=== PATIENT | male | born 1990 | race Caucasian/White ===

== ENCOUNTER 2018-09-20 15:56 | Emergency (ER) | payer BC ==
--- NOTE | 2018-09-20 16:21 | ED ---
General Adult HPI - General Chief complaint: Psychiatric Symptoms Stated complaint: Mental health Source: patient Mode of arrival: ambulatory Limitations: no limitations - History of Present Illness Initial comments: Dictation was produced using [email or web address] dictation software. please excuse any grammatical, word or spelling errors. Chief Complaint: 27-year-old male presents to the emergency department for chest discomfort and dysuria. History of Present Illness: Patient states that he doesn't have a primary care physician. He states that he's been having approximately one month of intermittent chest pain. States sharp and sometimes worse with deep inspiration. He states is not constant. Denies any cardiac history. Patient has no medical problems. Patient also states that he's been having pain with urination. Patient states that this is also intermittent. Having for approximately one month. Patient came today because he needed to come to the emergency department to get his medical issues figured out. Patient denies any constitutional symptoms. Patient is sexually active however does not know if he has a sexually transmitted disease. The ROS documented in this emergency department record has been reviewed and confirmed by me. Those systems with pertinent positive or negative responses have been documented in the HPI. All other systems are other negative and/or noncontributory. - Related Data Home Medications Medication Instructions Recorded Confirmed No Known Home Medications 09/20/18 09/20/18 Allergies Allergy/AdvReac Type Severity Reaction Status Date / Time No Known Allergies Allergy Unverified 09/20/18 16:33 Review of Systems ROS Statement: Those systems with pertinent positive or pertinent negative responses have been documented in the HPI. ROS Other: All systems not noted in ROS Statement are negative. Past Medical History Past Medical History: No Reported History History of Any Multi-Drug Resistant Organisms: None Reported Past Surgical History: Orthopedic Surgery Past Psychological History: No Psychological Hx Reported Smoking Status: Current every day smoker Past Alcohol Use History: Occasional Past Drug Use History: Marijuana General Exam - General Exam Comments Initial Comments: PHYSICAL EXAM: General Impression: Alert and oriented x3, not in acute distress HEENT: Normocephalic atraumatic, extra-ocular movements intact, pupils equal and reactive to light bilaterally, mucous membranes moist. Cardiovascular: Heart regular rate and rhythm, S1&S2 audible, no murmurs, rubs or gallops Chest: Lungs clear to auscultation bilaterally, no rhonchi, no wheeze, no rales Abdomen: Bowel sounds present, abdomen soft, non-tender, non-distended, no organomegaly Musculoskeletal: Pulses present and equal in all extremities, no peripheral edema Motor: Power 5/5 bilaterally, no focal deficits noted Neurological: CN II-XII grossly intact, no focal motor or sensory deficits noted Skin: Intact with no visualized rashes Psych: Normal affect and mood Limitations: no limitations Course Vital Signs 09/20/18 09/20/18 15:58 22:01 Temperature 98.1 F 97.6 F Pulse Rate 87 68 Respiratory 16 18 Rate Blood Pressure 187/105 138/76 O2 Sat by Pulse 100 98 Oximetry Medical Decision Making - Medical Decision Making ED course: 27-year-old male presents with chief complaint of dysuria and chest pain. Vital signs upon arrival are within acceptable limits. Patient has no symptoms at this time. Patient was value by triage nurse who allegedly reports that patient is here for depression. Patient states he is not depressed than usual. He denies any suicidal or homicidal ideation ideation. Patient is cooperative and mentating appropriately. Patient denies any visual or auditory hallucinations. More history was obtained from coworkers. They state that he currently works at a [employer] shop. They state that he has been acting abnormally. He's been very self-conscious and acting strangely. Sclera asked if he needed help and he said yes prompting them to bring him to the emergency department. Patient never overtly said he was suicidal however he did report to them that he needed.Chest x-ray was obtained showing no acute processes. Urinalysis shows no acute processes. Her drugs shows positive marijuana. She was evaluated by EPS. Recommend discharge at this time. Patient given referral to primary care physician. She advised to return with any worsening symptoms. Patient understandable agreeable to disposition. Urine sent for STD analysis. EKG interpretation: Ventricular rate 78, normal sinus rhythm,. Interval 1:30, care is 80, QTc 424. No FL prolongation, no QTC prolongation, no ST or T-wave changes noted. . Overall, this EKG is unremarkable - Lab Data Lab Results 09/20/18 09/20/18 Range/Units 16:20 18:50 Urine Color Yellow Urine Appearance Clear (Clear) Urine pH 7.5 (5.0-8.0) Ur Specific [place] 1.008 (1.001-1.035) Urine Protein Negative (Negative) Urine Glucose (UA) Negative (Negative) Urine Ketones Negative (Negative) Urine Blood Negative (Negative) Urine Nitrite Negative (Negative) Urine Bilirubin Negative (Negative) Urine Urobilinogen <2.0 (<2.0) mg/dL Ur Leukocyte Esterase Negative (Negative) Urine Opiates Screen Not Detected (NotDetected) Ur Oxycodone Screen Not Detected (NotDetected) Urine Methadone Screen Not Detected (NotDetected) Ur Propoxyphene Screen Not Detected (NotDetected) Ur Barbiturates Screen Not Detected (NotDetected) U Tricyclic Antidepress Not Detected (NotDetected) Ur Phencyclidine Scrn Not Detected (NotDetected) Ur Amphetamines Screen Not Detected (NotDetected) U Methamphetamines Scrn Not Detected (NotDetected) U Benzodiazepines Scrn Not Detected (NotDetected) Urine Cocaine Screen Not Detected (NotDetected) U Marijuana (THC) Screen Detected H (NotDetected) Disposition Clinical Impression: Depression Disposition: HOME SELF-CARE Condition: Good Is patient prescribed a controlled substance at d/c from ED?: No Referrals: None,Stated [Primary Care Provider] - 1-2 days Anahy Brown MD [REFERRING] - 1-2 days Time of Disposition: 22:11
[2018-09-20 16:35] LABS: Appearance,Urine Clear (Clear); Bilirubin,Urine Negative (Negative); Blood,Urine Negative (Negative); Color,Urine Yellow; Glucose,Urine (UA) Negative (Negative); Ketones,Urine Negative (Negative); Leukocyte Esterase,Urine Negative (Negative); Nitrite,Urine Negative (Negative); PH, Urine 7.5 (5.0-8.0); Protein,Urine Negative (Negative); Specific Gravity,Urine 1.008 (1.001-1.035); Urobilinogen,Urine <2.0 mg/dL (<2.0)
--- NOTE | 2018-09-20 17:13 | XR ---
EXAMINATION: XR chest 2V DATE AND TIME: 09/20/2018 4:53 PM CLINICAL INDICATION: PHH; Pain TECHNIQUE: Departmental protocol COMPARISON: None FINDINGS: The lungs are clear. The pleural spaces are negative. The cardiac silhouette is not enlarged. The remainder of the mediastinal silhouette is unremarkable. The skeletal structures and soft tissues are negative for acute findings. IMPRESSION: NO ACUTE PROCESS.
[2018-09-20 19:09] LABS: Amphetamine Screen,Urine Not Detected (NotDetected); Barbiturate Screen,Urine Not Detected (NotDetected); Benzodiazepines Screen,Urine Not Detected (NotDetected); Cocaine Screen,Urine Not Detected (NotDetected); Methadone Screen, Urine Not Detected (NotDetected); Opiate Screen,Urine Not Detected (NotDetected); Oxycodone Screen, Urine Not Detected (NotDetected); Phencyclidine Screen,Urine Not Detected (NotDetected); Tricyclic Antidepressant,Urine Not Detected (NotDetected); Urn Cannabinoid Scrn Detected (NotDetected)
[2018-09-20 22:02] VITALS: BP 138/76; PULSE 68; RESP 18; TEMP 97.6
[2018-09-22 16:11] LABS: C. trachomatis,PCR Negative (Neg,Equiv); Chlamydia trachomatis Source Urine; N. gonorrhoeae,PCR Negative (Neg,Equiv); Neisseria Source Urine
== END 2018-09-20 22:27 | disposition home or self-care (01) ==
LOC: EC 15:56
DX: F32.9 Major depressive disorder, single episode, unspecified (principal); R07.89 Other chest pain; R30.9 Painful micturition, unspecified; R30.0 Dysuria; F17.200 Nicotine dependence, unspecified, uncomplicated
CPT/HCPCS: 71046; 80306; 81003; 82075; 87491; 87591; 93005; 99285

== ENCOUNTER 2019-09-20 15:35 | Emergency (ER) | payer SELFPAY ==
[2019-09-20 15:48] VITALS: RESP 18; TEMP 98.5
[2019-09-20 16:39] LABS: Appearance,Urine Clear (Clear); Bilirubin,Urine Negative (Negative); Blood,Urine Negative (Negative); Color,Urine Light Yellow; Glucose,Urine (UA) Negative (Negative); Ketones,Urine Negative (Negative); Leukocyte Esterase,Urine Negative (Negative); Nitrite,Urine Negative (Negative); Protein,Urine Negative (Negative); Specific Gravity,Urine 1.004 (1.001-1.035); Urobilinogen,Urine <2.0 mg/dL (<2.0)
[2019-09-20 17:01] LABS: Amphetamine Screen,Urine Not Detected (NotDetected); Barbiturate Screen,Urine Not Detected (NotDetected); Benzodiazepines Screen,Urine Not Detected (NotDetected); Cocaine Screen,Urine Not Detected (NotDetected); Methadone Screen, Urine Not Detected (NotDetected); Opiate Screen,Urine Not Detected (NotDetected); Oxycodone Screen, Urine Not Detected (NotDetected); Phencyclidine Screen,Urine Not Detected (NotDetected); Tricyclic Antidepressant,Urine Not Detected (NotDetected); Urn Cannabinoid Scrn Detected (NotDetected)
--- NOTE | 2019-09-20 18:11 | ED ---
General Adult HPI - General Chief complaint: Anxiety Stated complaint: mental health eval Time Seen by Provider: 09/20/19 15:53 Source: patient Mode of arrival: ambulatory Limitations: no limitations - History of Present Illness Initial comments: Patient is a 28-year-old male presenting to the emergency Department with complaints of anxiety and abdominal pain. Patient describes the abdominal pain as been going on for approximately one year. He has been trying to figure out his symptoms and has been researching his symptoms however he cannot figure out what is causing it. Patient states he no longer has a job because people were talking about him behind his back. Patient denies any fever, chills, nausea, vomiting, diarrhea. Patient denies any abdominal surgeries. Patient denies any suicidal or homicidal thoughts at this time. Patient states he "just wants to figure out what's wrong with him." He does have history of mental illness. P adrien has no other complaints at this time. Upon arrival to ER, vital signs are stable. - Related Data Home Medications Medication Instructions Recorded Confirmed No Known Home Medications 09/20/18 09/20/18 Allergies Allergy/AdvReac Type Severity Reaction Status Date / Time No Known Allergies Allergy Unverified 09/20/18 16:33 Review of Systems ROS Statement: Those systems with pertinent positive or pertinent negative responses have been documented in the HPI. ROS Other: All systems not noted in ROS Statement are negative. Past Medical History Past Medical History: No Reported History History of Any Multi-Drug Resistant Organisms: None Reported Past Surgical History: Orthopedic Surgery Past Psychological History: No Psychological Hx Reported Smoking Status: Former smoker Past Alcohol Use History: Occasional Past Drug Use History: Marijuana General Exam - General Exam Comments Initial Comments: GENERAL: Patient appears anxious. HEAD: Atraumatic, normocephalic. EYES: Pupils equal round and reactive to light, extraocular movements intact, sclera anicteric, conjunctiva are normal. ENT: Nares patent, oropharynx clear without exudates. Moist mucous membranes. NECK: Normal range of motion, supple without lymphadenopathy or JVD. LUNGS: Breath sounds clear to auscultation bilaterally and equal. No wheezes rales or rhonchi. HEART: Regular rate and rhythm without murmurs, rubs or gallops. ABDOMEN: Soft, nontender, normoactive bowel sounds. No guarding, no rebound. No masses appreciated. : Deferred EXTREMITIES: Normal range of motion, no pitting or edema. No clubbing or cyanosis. NEUROLOGICAL: Normal speech, normal gait. PSYCH: Anxious SKIN: Warm, Dry, normal turgor, no rashes or lesions noted. Limitations: no limitations Course Vital Signs 09/20/19 09/20/19 15:42 18:13 Temperature 98.5 F Pulse Rate 126 H 90 Respiratory 18 18 Rate Blood Pressure 170/86 150/80 O2 Sat by Pulse 98 98 Oximetry Medical Decision Making - Medical Decision Making Patient is a 28-year-old male presenting for anxiety and abdominal pain. Vital signs are stable, afebrile. Exam is unremarkable except for patient being overly anxious. Patient denies any homicidal or suicidal thoughts at this time. UA is normal, tox screen only shows marijuana. BAT was normal. Patient was evaluated by EPS nurse, Prisca. Patient will follow up on an outpatient basis for generalized anxiety disorder. Patient is stable for discharge at this time. He agrees to a contract and will contact appropriate authorities if he has thoughts of self-harm. I discussed with patient that his abdominal discomfort is most likely related to his anxiety. Patient is in agreement with this. Patient was given referral for PCP as well. Patient is stable for discharge at this time. Case discussed with Dr. Vasques. - Lab Data Lab Results 09/20/19 Range/Units 16:15 Urine Color Light Yellow Urine Appearance Clear (Clear) Urine pH 6.0 (5.0-8.0) Ur Specific [place] 1.004 (1.001-1.035) Urine Protein Negative (Negative) Urine Glucose (UA) Negative (Negative) Urine Ketones Negative (Negative) Urine Blood Negative (Negative) Urine Nitrite Negative (Negative) Urine Bilirubin Negative (Negative) Urine Urobilinogen <2.0 (<2.0) mg/dL Ur Leukocyte Esterase Negative (Negative) Urine Opiates Screen Not Detected (NotDetected) Ur Oxycodone Screen Not Detected (NotDetected) Urine Methadone Screen Not Detected (NotDetected) Ur Propoxyphene Screen Not Detected (NotDetected) Ur Barbiturates Screen Not Detected (NotDetected) U Tricyclic Antidepress Not Detected (NotDetected) Ur Phencyclidine Scrn Not Detected (NotDetected) Ur Amphetamines Screen Not Detected (NotDetected) U Methamphetamines Scrn Not Detected (NotDetected) U Benzodiazepines Scrn Not Detected (NotDetected) Urine Cocaine Screen Not Detected (NotDetected) U Marijuana (THC) Screen Detected H (NotDetected) Disposition Clinical Impression: Acute anxiety Disposition: HOME SELF-CARE Condition: Stable Instructions (If sedation given, give patient instructions): Generalized Anxiety Disorder (ED) Additional Instructions: Please return to the Emergency Department if symptoms worsen or any other concerns. Follow up with outpatient services as discussed with Prisca. Follow-up with PCP regarding stomach pain. Is patient prescribed a controlled substance at d/c from ED?: No Referrals: None,Stated [Primary Care Provider] - 1-2 days Anahy Brown MD [REFERRING] - 1-2 days
[2019-09-20 18:16] VITALS: BP 150/80; PULSE 90
== END 2019-09-20 18:13 | disposition home or self-care (01) ==
LOC: EC 15:35
DX: F41.9 Anxiety disorder, unspecified (principal); R10.9 Unspecified abdominal pain; Z87.891 Personal history of nicotine dependence
CPT/HCPCS: 80306; 81003; 82075; 99284

== ENCOUNTER 2019-12-18 14:01 | Emergency (ER) | payer OTHER ==
[2019-12-18 14:07] VITALS: RESP 18; TEMP 98
[2019-12-18 14:40] LABS: Appearance,Urine Clear (Clear); Bilirubin,Urine Negative (Negative); Blood,Urine Negative (Negative); Color,Urine Colorless; Glucose,Urine (UA) Negative (Negative); Ketones,Urine Negative (Negative); Leukocyte Esterase,Urine Negative (Negative); Nitrite,Urine Negative (Negative); PH, Urine 6.5 (5.0-8.0); Protein,Urine Negative (Negative); Specific Gravity,Urine 1.003 (1.001-1.035); Urobilinogen,Urine <2.0 mg/dL (<2.0)
[2019-12-18 14:46] LABS: Amphetamine Screen,Urine Not Detected (NotDetected); Barbiturate Screen,Urine Not Detected (NotDetected); Benzodiazepines Screen,Urine Not Detected (NotDetected); Cocaine Screen,Urine Not Detected (NotDetected); Methadone Screen, Urine Not Detected (NotDetected); Opiate Screen,Urine Not Detected (NotDetected); Oxycodone Screen, Urine Not Detected (NotDetected); Phencyclidine Screen,Urine Not Detected (NotDetected); Tricyclic Antidepressant,Urine Not Detected (NotDetected); Urn Cannabinoid Scrn Not Detected (NotDetected)
--- NOTE | 2019-12-18 15:01 | ED ---
Psych HPI - General Source: patient Mode of arrival: ambulatory - History of Present Illness MD Complaint: feels depressed <RigoRomel - Last Filed: 12/18/19 17:43> <Atilio Vasques - Last Filed: 12/18/19 20:08> - General Chief Complaint: Psychiatric Symptoms Stated Complaint: mental health eval Time Seen by Provider: 12/18/19 14:33 - History of Present Illness Initial Comments: Is a 29-year-old male with a history depression and anxiety who presents with complaints of increasing anxiety and depression. He did talk to self not sleeping not eating very well going on for almost a month. No suicidal thoughts however. He does smoke marijuana but none for his last 3 days. He denies any drugs or alcohol. Earlier no medications for the above. (Romel Sierra) - Related Data Home Medications Medication Instructions Recorded Confirmed No Known Home Medications 09/20/18 09/20/18 Allergies Allergy/AdvReac Type Severity Reaction Status Date / Time No Known Allergies Allergy Verified 12/18/19 14:08 Review of Systems ROS Other: All systems not noted in ROS Statement are negative. <Romel Sierra - Last Filed: 12/18/19 17:43> ROS Other: All systems not noted in ROS Statement are negative. <Atilio Vasques - Last Filed: 12/18/19 20:08> ROS Statement: Those systems with pertinent positive or pertinent negative responses have been documented in the HPI. Past Medical History Past Medical History: No Reported History History of Any Multi-Drug Resistant Organisms: None Reported Past Surgical History: Orthopedic Surgery Additional Past Surgical History / Comment(s): right arm, Past Psychological History: Anxiety, Depression Smoking Status: Former smoker Past Alcohol Use History: Occasional Past Drug Use History: Marijuana <RigoRomel - Last Filed: 12/18/19 17:43> General Exam Limitations: no limitations General appearance: alert, in no apparent distress Head exam: Present: atraumatic, normocephalic, normal inspection Eye exam: Present: normal appearance, PERRL, EOMI. Absent: scleral icterus, conjunctival injection, periorbital swelling ENT exam: Present: normal exam, mucous membranes moist Neck exam: Present: normal inspection. Absent: tenderness, meningismus, lymphadenopathy Respiratory exam: Present: normal lung sounds bilaterally. Absent: respiratory distress, wheezes, rales, rhonchi, stridor Cardiovascular Exam: Present: regular rate, normal rhythm, normal heart sounds. Absent: systolic murmur, diastolic murmur, rubs, gallop, clicks GI/Abdominal exam: Present: soft, normal bowel sounds. Absent: distended, tenderness, guarding, rebound, rigid Extremities exam: Present: normal inspection, full ROM, normal capillary refill. Absent: tenderness, pedal edema, joint swelling, calf tenderness Back exam: Present: normal inspection Neurological exam: Present: alert, oriented X3, CN II-XII intact Psychiatric exam: Present: depressed, flat affect Skin exam: Present: warm, dry, intact, normal color. Absent: rash <Romel Sierra - Last Filed: 12/18/19 17:43> - General Exam Comments Initial Comments: Physical well-developed asthenic appearing male who is awake alert oriented 3 (Romel Sierra) Course <Romel Sierra - Last Filed: 12/18/19 17:43> <Atilio Vasques - Last Filed: 12/18/19 20:08> Vital Signs 12/18/19 12/18/19 14:01 19:43 Temperature 98.0 F Pulse Rate 84 75 Respiratory 18 18 Rate Blood Pressure 134/91 144/87 O2 Sat by Pulse 100 99 Oximetry - Reevaluation(s) Reevaluation #1: 12/18/19 17:43 The patient is pending EPS evaluation the case will be endorsed to Dr. Vasques at our shift change (Romel Sierra) Reevaluation #2: 12/18/19 20:07 Patient was made medically clear for psychiatric evaluation (Atilio Vasques) Medical Decision Making <Atilio Vasques - Last Filed: 12/18/19 20:08> - Medical Decision Making 29 male who was seen and evaluated by psychiatry here in the ER. At this point patient can be discharged home (Atilio Vasques) - Lab Data Lab Results 12/18/19 Range/Units 14:12 Urine Color Colorless Urine Appearance Clear (Clear) Urine pH 6.5 (5.0-8.0) Ur Specific [place] 1.003 (1.001-1.035) Urine Protein Negative (Negative) Urine Glucose (UA) Negative (Negative) Urine Ketones Negative (Negative) Urine Blood Negative (Negative) Urine Nitrite Negative (Negative) Urine Bilirubin Negative (Negative) Urine Urobilinogen <2.0 (<2.0) mg/dL Ur Leukocyte Esterase Negative (Negative) Urine Opiates Screen Not Detected (NotDetected) Ur Oxycodone Screen Not Detected (NotDetected) Urine Methadone Screen Not Detected (NotDetected) Ur Propoxyphene Screen Not Detected (NotDetected) Ur Barbiturates Screen Not Detected (NotDetected) U Tricyclic Antidepress Not Detected (NotDetected) Ur Phencyclidine Scrn Not Detected (NotDetected) Ur Amphetamines Screen Not Detected (NotDetected) U Methamphetamines Scrn Not Detected (NotDetected) U Benzodiazepines Scrn Not Detected (NotDetected) Urine Cocaine Screen Not Detected (NotDetected) U Marijuana (THC) Screen Not Detected (NotDetected) Disposition <Romel Sierra - Last Filed: 12/18/19 17:43> Is patient prescribed a controlled substance at d/c from ED?: No <Atilio Vasques - Last Filed: 12/18/19 20:08> Clinical Impression: Depression, Psychosis Disposition: HOME SELF-CARE Condition: Fair Instructions (If sedation given, give patient instructions): Brief Psychotic Disorder (ED) Referrals: None,Stated [Primary Care Provider] - 1-2 days
[2019-12-18 19:44] VITALS: BP 144/87; PULSE 75
== END 2019-12-18 20:16 | disposition home or self-care (01) ==
LOC: EC 14:01
DX: F32.9 Major depressive disorder, single episode, unspecified (principal); F29 Unspecified psychosis not due to a substance or known physiological condition; F12.90 Cannabis use, unspecified, uncomplicated; Z87.891 Personal history of nicotine dependence
CPT/HCPCS: 80306; 81003; 82075; 99284

== ENCOUNTER 2019-12-29 | Emergency (ER) | payer OTHER | END 2019-12-29 18:10 | disposition home or self-care (01) | CPT/HCPCS: 99283 ==

== ENCOUNTER 2020-01-24 18:32 | Emergency (ER) | payer OTHER ==
[2020-01-24 18:55] VITALS: RESP 16
--- NOTE | 2020-01-24 19:19 | ED ---
Psych HPI - General Chief Complaint: Psychiatric Symptoms Stated Complaint: mental health Time Seen by Provider: 01/24/20 18:59 Source: patient Mode of arrival: ambulatory - History of Present Illness Initial Comments: 29-year-old male patient presents to the emergency department today for evaluation of hallucinations both visual and auditory. Patient states that he has been having any symptoms for the last one month and 3 weeks. States that he visualizes different colored lights that are speaking to him. Patient states that he is fearful of this voice due to its threats to harm him and his family members. Patient denies any suicidal or homicidal ideation. Patient was admitted to this facility at the end of December for similar symptoms. States while he was in the hallucinations did decrease but returned once he got home. States he is sleeping better since being put on Seroquel. He denies any current physical symptoms or concerns. States he is taking his medications as directed. Denies alcohol or drug use. Patient denies any recent rash, fever, chills, cough, shortness of breath, chest pain, abdominal pain, nausea, vomiting, diarrhea, constipation, back pain, numbness, tingling, dizziness, weakness, hematuria, dysuria, urinary urgency, urinary frequency, headache, visual changes, or any other complaints. - Related Data Previous Rx's Medication Instructions Recorded Nicotine 7Mg/24Hr Patch [Habitrol] 1 patch TRANSDERM DAILY 14 Days 01/13/20 patch QUEtiapine [SEROquel] 25 mg PO HS 30 Days tab 01/13/20 Venlafaxine HCl ER [Effexor Xr] 37.5 mg PO DAILY #10 cap 01/24/20 Allergies Allergy/AdvReac Type Severity Reaction Status Date / Time No Known Allergies Allergy Verified 01/24/20 19:32 Review of Systems ROS Statement: Those systems with pertinent positive or pertinent negative responses have been documented in the HPI. ROS Other: All systems not noted in ROS Statement are negative. Past Medical History Past Medical History: No Reported History History of Any Multi-Drug Resistant Organisms: None Reported Past Surgical History: Orthopedic Surgery Additional Past Surgical History / Comment(s): right arm, Past Psychological History: ADD/ADHD, Anxiety, Depression Smoking Status: Current every day smoker Past Alcohol Use History: None Reported Past Drug Use History: Marijuana General Exam Limitations: no limitations General appearance: alert, in no apparent distress, other (Physical well- developed, well-nourished adult male patient in no acute distress. Vital signs upon presentation are temperature 98.6F, pulse 92, respiration 16, blood pressure 145/85, pulse ox 99% on room air.) Eye exam: Present: normal appearance, PERRL, EOMI. Absent: scleral icterus, conjunctival injection, periorbital swelling ENT exam: Present: normal exam, normal oropharynx, mucous membranes moist Respiratory exam: Present: normal lung sounds bilaterally. Absent: respiratory distress, wheezes, rales, rhonchi, stridor Cardiovascular Exam: Present: regular rate, normal rhythm, normal heart sounds. Absent: systolic murmur, diastolic murmur, rubs, gallop, clicks Neurological exam: Present: alert, oriented X3, CN II-XII intact Psychiatric exam: Present: flat affect. Absent: homicidal ideation, suicidal ideation Skin exam: Present: warm, dry, intact, normal color. Absent: rash Course Vital Signs 01/24/20 01/24/20 18:53 21:15 Temperature 98.6 F 98 F Pulse Rate 92 79 Respiratory 16 16 Rate Blood Pressure 145/85 135/80 O2 Sat by Pulse 99 98 Oximetry Medical Decision Making - Medical Decision Making 29-year-old male patient presented to the emergency department today for evaluation of hallucinations. Physical examination is unremarkable. He was cleared for emergency psychiatric services and had an evaluation. Patient is not suicidal nor homicidal site is felt that he would be safe to be discharged home. Psychiatrist requests giving patient a prescription for venlafaxine 37.5mg daily. He'll be given a 10 day prescription and instructed to follow-up with his primary care physician for recheck on Monday. Return parameters were discussed in detail. He verbalizes understanding and agrees with this plan. - Lab Data Lab Results 01/24/20 Range/Units 19:26 Urine Opiates Screen Not Detected (NotDetected) Ur Oxycodone Screen Not Detected (NotDetected) Urine Methadone Screen Not Detected (NotDetected) Ur Propoxyphene Screen Not Detected (NotDetected) Ur Barbiturates Screen Not Detected (NotDetected) U Tricyclic Antidepress Not Detected (NotDetected) Ur Phencyclidine Scrn Not Detected (NotDetected) Ur Amphetamines Screen Not Detected (NotDetected) U Methamphetamines Scrn Not Detected (NotDetected) U Benzodiazepines Scrn Not Detected (NotDetected) Urine Cocaine Screen Not Detected (NotDetected) U Marijuana (THC) Screen Not Detected (NotDetected) Disposition Clinical Impression: Hallucinations Disposition: HOME SELF-CARE Condition: Good Instructions (If sedation given, give patient instructions): Hallucinations (ED) Additional Instructions: Take medications as directed. Return immediately if you start to feel suicidal or are having thoughts of harming others. Follow-up with her primary care physician for recheck on Monday. Return to the emergency department immediately for any new, worsening, or concerning symptoms. Prescriptions: Venlafaxine HCl ER [Effexor Xr] 37.5 mg PO DAILY #10 cap Is patient prescribed a controlled substance at d/c from ED?: No Referrals: Moris Schumacher MD [Primary Care Provider] - 1-2 days Time of Disposition: 21:19
[2020-01-24 20:02] LABS: Amphetamine Screen,Urine Not Detected (NotDetected); Barbiturate Screen,Urine Not Detected (NotDetected); Benzodiazepines Screen,Urine Not Detected (NotDetected); Cocaine Screen,Urine Not Detected (NotDetected); Methadone Screen, Urine Not Detected (NotDetected); Opiate Screen,Urine Not Detected (NotDetected); Oxycodone Screen, Urine Not Detected (NotDetected); Phencyclidine Screen,Urine Not Detected (NotDetected); Tricyclic Antidepressant,Urine Not Detected (NotDetected); Urn Cannabinoid Scrn Not Detected (NotDetected)
[2020-01-24 21:28] VITALS: BP 135/80; PULSE 79; TEMP 98
== END 2020-01-24 21:33 | disposition home or self-care (01) ==
LOC: EC 18:32
DX: R44.1 Visual hallucinations (principal); R44.0 Auditory hallucinations; F17.200 Nicotine dependence, unspecified, uncomplicated
CPT/HCPCS: 80306; 82075; 99285

== ENCOUNTER 2020-01-28 18:09 | Inpatient (IN) | payer MEDICAID, OTHER ==
--- NOTE | 2020-01-28 18:47 | ED ---
General Adult HPI - General Chief complaint: Psychiatric Symptoms Stated complaint: EPS eval Time Seen by Provider: 01/28/20 18:30 Source: patient, RN notes reviewed, old records reviewed Mode of arrival: ambulatory Limitations: no limitations - History of Present Illness Initial comments: 29-year-old male history of mental illness presenting for psychiatric evaluation. Patient currently on Seroquel. He states he has been hearing voices for the past one week. They are telling him to hurt himself and hurt his family and low speed around him. He denies any suicide attempt or self-harm. He denies any ingestion of illicit drugs or alcohol. He states he has been admitted to this institution for mental health in the past. He is asking to speak with someone. He had called his counselor who referred him to the emergency department for evaluation. - Related Data Home Medications Medication Instructions Recorded Confirmed Nicotine 7Mg/24Hr Patch [Habitrol] 1 patch TRANSDERM DAILY PRN 01/28/20 01/28/20 Previous Rx's Medication Instructions Recorded QUEtiapine [SEROquel] 25 mg PO HS 30 Days tab 01/13/20 Venlafaxine HCl ER [Effexor Xr] 37.5 mg PO DAILY #10 cap 01/24/20 Allergies Allergy/AdvReac Type Severity Reaction Status Date / Time No Known Allergies Allergy Verified 01/28/20 20:51 Review of Systems ROS Statement: Those systems with pertinent positive or pertinent negative responses have been documented in the HPI. ROS Other: All systems not noted in ROS Statement are negative. Past Medical History Past Medical History: No Reported History History of Any Multi-Drug Resistant Organisms: None Reported Past Surgical History: Orthopedic Surgery Additional Past Surgical History / Comment(s): right arm, Past Psychological History: ADD/ADHD, Anxiety, Depression Smoking Status: Current every day smoker Past Alcohol Use History: None Reported Past Drug Use History: Marijuana General Exam Limitations: no limitations General appearance: alert, in no apparent distress Head exam: Present: atraumatic, normocephalic Eye exam: Present: normal appearance, PERRL ENT exam: Present: normal exam Neck exam: Present: normal inspection. Absent: tenderness Respiratory exam: Present: normal lung sounds bilaterally. Absent: respiratory distress, wheezes Cardiovascular Exam: Present: regular rate, normal rhythm GI/Abdominal exam: Present: soft. Absent: distended, tenderness, guarding Extremities exam: Present: normal inspection, normal capillary refill. Absent: pedal edema Back exam: Present: normal inspection Neurological exam: Present: alert, oriented X3, CN II-XII intact. Absent: motor sensory deficit Psychiatric exam: Present: normal affect, normal mood Skin exam: Present: warm, dry, intact. Absent: cyanosis, diaphoretic Course Vital Signs 01/28/20 01/28/20 18:23 20:31 Temperature 98.8 F Pulse Rate 107 H 79 Respiratory 20 20 Rate Blood Pressure 142/87 132/86 O2 Sat by Pulse 99 96 Oximetry Medical Decision Making - Medical Decision Making 29-year-old male presenting for psychiatric evaluation. Hearing voices. Patient medically cleared and evaluated by EPS. He will be admitted to this institution for further psychiatric evaluation and treatment. Patient is agreeable with plan. Disposition Clinical Impression: Hallucinations, Major depressive disorder with psychotic features Disposition: ADMITTED IP TO THIS [facility] Condition: Stable Is patient prescribed a controlled substance at d/c from ED?: No Referrals: Moris Schumacher MD [Primary Care Provider] - 1-2 days Time of Disposition: 22:14
[2020-01-28] MEDS ORDERED: LORazepam 1 MG TAB PO PRN (22:46)
[2020-01-28] MEDS ORDERED: LORazepam 2 MG/ML INJ IM PRN (22:49)
[2020-01-28] MEDS ORDERED: ZIPRASIDONE 20 MG VIAL IM PRN (23:30)
[2020-01-28] MEDS ORDERED: QUEtiapine 25 MG TAB PO SCH (23:30)
[2020-01-29] MEDS ORDERED: MAGNESIUM HYDROXIDE 2,400 MG/10 ML CUP PO PRN
[2020-01-29] MEDS ORDERED: MAG HYDROX/AL HYDROX/SIMETH 30 ML CUP PO PRN
[2020-01-29] MEDS: NICOTINE 7MG/24HR PATCH TRANSDERM SCH ×3 (09:07→18:41)
--- NOTE | 2020-01-29 11:48 | P.HP ---
Psychiatric H&P - . H&P Date: 01/29/20 History & Physical: DATE OF SERVICE: 01/29/2020 IDENTIFYING DATA: The patient is a single 29-year-old male admitted to the psychiatric unit voluntarily with the complaint of auditory hallucinations and suicidal and homicidal ideation. HISTORY OF PRESENT ILLNESS: The patient is a 29-year-old male patient who presented to the emergency department for evaluation of hallucinations both visual and auditory. Patient stated that he visualizes different colored lights that are speaking to him. Patient stated that he is fearful of this voice due to its threats to harm him and his family members. Patient denies any suicidal or homicidal ideation. Patient was admitted to this facility at the end of December for similar symptoms. States while he was in the hallucinations did decrease but returned once he got home. States he is sleeping better since being put on Seroquel. He denies any current physical symptoms or concerns. States he is taking his medications as directed. He described the non-auditory experience where he has recurrent and intrusive thoughts that he does not identify as his own. He has given the source of the thoughts a name and described the person as cruel and manipulative. The thoughts are condemning, critical and attempted to control his behavior. As described in the letter above, the thoughts are sometimes homicidal or suicidal nature. During interview he became acutely distressed as she was describing his experience. He pleaded that I understand he would never act on these disturbing and violent thoughts. However, he feels helpless in his ability to control her stopped thoughts. He specifically denied auditory experiences and denied experiencing visual or olfactory hallucinations. He denied ideas of reference or thought broadcasting. This experience began about one month prior to admission. The onset of these symptoms coincide with the during the breakup and separation from a long-term partner. He talked about conflict with his partner after he was discharge from hospital for the treatment of diabetes. He feels depressed, hopeless and helpless. He has suicidal and homicidal thoughts that appear to be expressed in the disassociated manner. He described problems with sleep appetite, guilt and energy. He described restlessness and anxiety related to the subjective experiences. He stop smoking marijuana 1 month ago with the onset of these psychotic experie nces. He denied use of alcohol or other drugs get high, help him sleep or changes mood. He denied experiencing panic attacks or compulsive behaviors. He denied experiencing. Of elevated mood or sustained irritability consistent with diamond or hypomania. PAST PSYCHIATRIC HISTORY: PAST PSYCHIATRIC HISTORY: He initially denied history of mental health treatment but later revealed that he was involved with therapy and prescribed Adderall for several years beginning in early adolescence until the time he left home at 19. According to [facility] mental health records he was diagnosed with ADHD and conduct disorder as an adolescent. Past hospitalizations: He has history of 1 previous psychiatric hospitalization at this hospital about 3 weeks ago with similar symptoms. Suicidal attempts: Denies Medications: Seroquel PAST MEDICAL HISTORY: He has no major medical illnesses ALLERGIES: No drug ALLERGIES SUBSTANCE USE HISTORY: He described a history of daily use of marijuana up until one month ago and a social pattern of alcohol use. He denied that friends and family ever complained to him about his marijuana alcohol use. He is never been in a substance abuse treatment program. He reports last used Marijuana a week ago. FAMILY PSYCHIATRIC/SUBSTANCE USE HISTORY: he is unaware of family history of psychiatric or substance use problems LEGAL HISTORY: denied SOCIAL HISTORY: His born and raised in [facility]. His parents were never . He lived primarily with his mother. He has 1 brother and 2 sisters. He currently lives with his brother is an apartment in [place]. He broke up with his partner of 10 years approximate 2 months ago but has been getting back together. He graduated from high school and briefly attended [employer] college. He is currently unemployed. He complained of being bullied as a child but denied a history of physical, sexual or emotional abuse. He is homosexual. MENTAL STATUS EXAM: General Appearance: Patient appears to be stated age is alert, directable. Patient has fair eye contact. Behavior: Patient is seated without any agitated behavior. Appears to be anxious Speech: Patient's speech is goal-directed and nonpressured. Slow and soft tone. Mood/Affect: Patient reports their mood/anxiety is depressed, affect is constricted. Suicidality/Homicidality: Patient denies any suicidal or homicidal ideation. Perceptions: Patient reports auditory and visual hallucinations. Though content/process: Paranoia Memory and concentration: AOX3, grossly intact for the purposes of this session. Judgment and insight: Limited Expected LOS: 3-5 days Allergies Allergy/AdvReac Type Severity Reaction Status Date / Time No Known Allergies Allergy Verified 01/29/20 09:23 Vital Signs Temp 98.5 F 04/15/20 06:43 Pulse 79 01/29/20 06:43 Resp 16 01/29/20 06:43 BP 117/64 01/29/20 06:43 Pulse Ox 99 01/28/20 23:15 Intake & Output 01/28/20 01/29/20 01/29/20 18:59 06:59 18:59 Weight 72.484 kg 70.307 kg 01/29/20 11:28 Assessment and Plan Assessment: IMPRESSIONS: Major depressive disorder with psychotic features, rule out delusional disorder, rule out schizophreniform disorder, rule out schizoaffective disorder, rule out unspecified psychotic disorder, rule out obsessive-compulsive disorder. Plan: PLAN: Admit to the mental health unit. Placed on suicidal precautions and 15 minute checks for safety. Continue inpatient level of care due to need for further stabilization on medications Consults internal medicine team for history and physical and management of medical problems. Provide the patient individual, group therapy, substance use disorder counseling to give better insight and learn coping skills. Medications: Start Seroquel 50 mg PO qhs. Adjust medications and monitor closely for the patient's symptoms getting worse and /or possible side effects on medications. Discharge patient to OUTPATIENT services upon a stabilization
[2020-01-29] MEDS: QUEtiapine 50 MG TAB PO SCH (21:36)
[2020-01-30] MEDS ORDERED: ZIPRASIDONE 20 MG VIAL IM ONE ×2 (09:07→09:14)
[2020-01-30] MEDS: NICOTINE 7MG/24HR PATCH TRANSDERM SCH (10:27)
--- NOTE | 2020-01-30 12:48 | P.PN ---
Subjective Progress Note Date: 01/30/20 Subjective: Patient seen and chart reviewed. The case was discussed with the team. The patient continues to report feeling depressed and anxious. The patient complained of poor sleep last night. He reports compliance with the medications and refused to the medications to be adjusted anymore. The patient refused to sign the consent for the psychotropic medications. The patient was agreeable to continue on the current dose of Seroquel. The patient reports being withdrawn and isolated on the unit and has not been attending or participating in milieu therapy. The patient reports fair and appetite. The patient reports auditory hallucinations telling him that he is going to . The patient denies any active suicidal homicidal or paranoid ideations at the time of the interview. Objective - Vital Signs Vital signs: Vital Signs Temp 98.0 F 01/30/20 06:34 Pulse 66 01/30/20 06:34 Resp 16 01/30/20 06:34 BP 114/56 01/30/20 06:34 Pulse Ox 98 01/30/20 06:34 - Exam Mental Status Examination: General Appearance: Patient appears to be stated age is alert, directable. Improving hygiene and grooming. Behavior: Patient is calmly sitting on the chair without any agitated behavior but has been irritable. Speech: Patient's speech is fluent and nonpressured. Mood/Affect: Patient reports their mood is depressed and anxious,affect is congruent with improved range. Suicidality/Homicidality: Patient denies having any suicidal or homicidal ideation intent or plan. Perceptions: Patient reports auditory hallucinations. Though content/process: Vague paranoia. Memory and concentration: AOX3, grossly intact for the purposes of this session Judgment and insight: poor A Assessment and Plan Assessment: IMPRESSIONS: Major depressive disorder with psychotic features, rule out delusional disorder, rule out schizophreniform disorder, rule out schizoaffective disorder, rule out unspecified psychotic disorder, rule out obsessive-compulsive disorder. Plan: PLAN: 1:1 support and psychotherapy Placed on suicidal precautions and 15 minute checks for safety. Continue inpatient level of care due to need for further stabilization on medications Provide the patient individual, group therapy, substance use disorder counseling to give better insight and learn coping skills. Medications: Discussed increase Seroquel 100 mg PO qhs, the patient is refusing any changes in the medication and refused to sign the consent. Adjust medications and monitor closely for the patient's symptoms getting worse and /or possible side effects on medications. Discharge patient to OUTPATIENT services upon a stabilization
--- NOTE | 2020-01-30 20:41 | CONS ---
CONSULTATION CHIEF COMPLAINT: Acute psychosis. HISTORY OF PRESENT ILLNESS: This is another admission to the psych unit for this 29-year-old white male with a history of schizophrenia. He presented to the emergency room for psychiatric evaluation. He describes hearing voices. He has a psychiatric history. He denies being suicidal or homicidal. REVIEW OF SYSTEMS: He denies any other symptoms of such as headaches, neurologic problems, chest pain, shortness of breath, abdominal pain, etc. Past medical history, family history, and personal and social histories can be found in his admitting summary. He apparently receives outpatient psychiatric therapy. He has not been taking any medications of any type, including psychoactive medications. He does smoke. PHYSICAL EXAMINATION: Blood pressure is 138/85 with a pulse of 87, respirations of 16. He is afebrile. In general he appeared to be slender and somewhat agitated. He was not in any acute distress. Skin color was normal. Skin was warm and dry. Lymph nodes were not enlarged. Head, ears, eyes, nose, mouth and throat seemed to be normal. Neck veins were not distended. Thyroid was normal. Chest was clear. Cardiac exam was normal sinus rhythm and no murmurs. Abdomen was soft. Extremities were normal. Neurologically he was intact. IMPRESSION: 1. Acute psychosis. 2. Schizophrenia. RECOMMENDATIONS: None. He does not appear to have any significant medical issues at this time. MMODL / IJN: [id number] /
[2020-01-30] MEDS: QUEtiapine 50 MG TAB PO SCH (21:28)
[2020-01-31] MEDS: NICOTINE 7MG/24HR PATCH TRANSDERM SCH ×2 (09:01→13:00)
[2020-01-31 09:05] LABS: Basophils % (A) 0 %; Eosinophils # (A) 0.3 k/uL (0-0.7); Eosinophils % (A) 4 %; HCT 46.8 % (39.0-53.0); HGB 15.3 gm/dL (13.0-17.5); Lymphocytes % (A) 25 %; MCH 31.9 pg (25.0-35.0); MCHC 32.7 g/dL (31.0-37.0); MCV 97.6 fL (80.0-100.0); Mean Platelet Volume 7.7; Monocytes # (A) 0.5 k/uL (0-1.0); Monocytes % (A) 6 %; Neutrophils # (A) 4.9 k/uL (1.3-7.7); Neutrophils % (A) 62 %; Platelet Count 203 k/uL (150-450); RBC 4.79 m/uL (4.30-5.90); RDW 12.4 % (11.5-15.5); WBC 7.8 k/uL (3.8-10.6)
[2020-01-31 09:16] LABS: ALT 24 U/L (4-49); AST 20 U/L (17-59); African American GFR (CKD) >90 (>60 ml/min/1.73 sqM); Albumin 4.3 g/dL (3.5-5.0); Alkaline Phosphatase 34 U/L (38-126); Anion Gap 7 mmol/L; Blood Urea Nitrogen 17 mg/dL (9-20); Carbon Dioxide 29 mmol/L (22-30); Chloride 102 mmol/L (98-107); Cholesterol 148 mg/dL (<200); Glucose 89 mg/dL (74-99); HDL Cholesterol 43 mg/dL (40-60); LDL Cholesterol,Calculated 88 mg/dL (0-99); Non-African American GFR(CKD) >90 (>60 ml/min/1.73 sqM); Potassium 4.6 mmol/L (3.5-5.1); Sodium 138 mmol/L (137-145); Total Bilirubin 0.8 mg/dL (0.2-1.3); Total Protein 6.9 g/dL (6.3-8.2); Triglycerides 86 mg/dL (<150)
--- NOTE | 2020-01-31 11:54 | P.PN ---
Subjective Progress Note Date: 01/31/20 Subjective: Patient seen and chart reviewed. The case was discussed with the team. The patient reports feeling better and reports improved mood and functioning. The patient reports improved sleep last night. He reports compliance with the medications but refuses for the medications to be adjusted anymore. The patient signed the consent for the psychotropic medications. The patient was agreeable to continue on the current dose of Seroquel. The patient reports being withdrawn and isolated on the unit and has not been attending or participating in milieu therapy. The patient reports fair and appetite. The patient reports auditory hallucinations telling him that he is going to . The patient denies any active suicidal homicidal or paranoid ideations at the time of the interview. Objective - Vital Signs Vital signs: Vital Signs Temp 98.4 F 01/31/20 06:13 Pulse 74 01/31/20 06:13 Resp 14 01/31/20 06:13 BP 97/56 01/31/20 06:13 Pulse Ox 98 01/30/20 06:34 - Exam Mental Status Examination: General Appearance: Patient appears to be stated age is alert, directable. Improving hygiene and grooming. Behavior: Patient is calmly sitting on the chair without any agitated behavior. Speech: Patient's speech is fluent and nonpressured. Mood/Affect: Patient reports their mood is depressed and anxious,affect is congruent with improved range. Suicidality/Homicidality: Patient denies having any suicidal or homicidal ideation intent or plan. Perceptions: Patient reports auditory and visual hallucinations. Though content/process: Vague paranoia. Memory and concentration: AOX3, grossly intact for the purposes of this session Judgment and insight: poor A - Labs CBC & Chem 7: 01/31/20 08:12 01/31/20 08:12 Labs: Abnormal Lab Results - Last 24 Hours (Table) 01/31/20 Range/Units 08:12 Alkaline Phosphatase 34 L (38-126) U/L Assessment and Plan Assessment: IMPRESSIONS: Major depressive disorder with psychotic features, rule out delusional disorder, rule out schizophreniform disorder, rule out schizoaffective disorder, rule out unspecified psychotic disorder, rule out obsessive-compulsive disorder. Plan: PLAN: 1:1 support and psychotherapy Placed on suicidal precautions and 15 minute checks for safety. Continue inpatient level of care due to need for further stabilization on medications Provide the patient individual, group therapy, substance use disorder counseling to give better insight and learn coping skills. Medications: Discussed increase Seroquel 100 mg PO qhs, the patient is refusing any changes in the medication and refused to sign the consent. Continue Seroquel 50 mg PO qhs. Adjust medications and monitor closely for the patient's symptoms getting worse and /or possible side effects on medications. Discharge patient to OUTPATIENT services upon a stabilization
[2020-01-31] MEDS ORDERED: NICOTINE POLACRILEX 2 MG GUM BUCCAL PRN (12:23)
[2020-01-31] MEDS: QUEtiapine 50 MG TAB PO SCH (20:48)
[2020-01-31 21:56] LABS: Hemoglobin A1C 4.7 % (4.0-6.0)
[2020-02-01] MEDS: ACETAMINOPHEN TAB 325 MG TAB PO PRN (03:07)
[2020-02-01 06:24] VITALS: RESP 16
[2020-02-01] MEDS: NICOTINE 7MG/24HR PATCH TRANSDERM SCH (07:47)
--- NOTE | 2020-02-01 18:17 | PN ---
PROGRESS NOTE DATE OF SERVICE: 02/01/2020. CHIEF COMPLAINT: The patient had auditory and visual hallucinations talking about seeing different lights that are speaking to him. He is fearful because the voices threaten him and his family. He has had ongoing problems with depression. INTERVAL HISTORY: Patient has been doing fair. He had a quiet evening yesterday. He attends more groups than not. He comes out in the day area. He has been appropriate in his interactions. He slept fairly well last night. Today, he has been up again. He has attended most of the groups. When I reviewed his history, the patient seemed to indicate that over the last 2 months or more he has had depression problems that seem to precede his hallucinations. He says going back to [place] time, he was not identifying depression and that most things seem to begin to start for him in October. He was somewhat vague about precipitants of depression. He acknowledged that he was sleeping poorly, had loss of motivation, energy and interest. There were some ongoing issues with his partner. Apparently the two subsequently have parted ways. He has not been working in and acknowledges that he has not had much in his life to focus on as something as a positive for him. When we talked about treatment of depression with psychotic features, I discussed the role of antidepressant, so the patient was pretty clear about the idea he did not want to be on antidepressant. He really could not say why. He was continuing to report seeing various colored dots that appear around him. He says generally they seem to be there all of the time, though they are less intrusive some of the time than other times. He says overall he feels he is making a little progress. He gave conflicting information about how he felt his overall progress has been in the hospital. At 1 point he said that he was doing well and made good progress and other times he said that he did not feel he was getting any benefit particularly from his medications. We discussed that his antipsychotic medication is likely subtherapeutic. He was willing to consider increasing the dose. He tolerates his psychotropic medications. MENTAL STATUS: Patient gave fair eye contact. He was somewhat restless. He answered questions appropriately. His thoughts were clear and coherent at times. He gave some rambling responses that were a little vague and difficult to track his conversation. For the most part, his thoughts were fairly clear. His affect was somewhat anxious. His mood dysphoric. He seemed somewhat distressed. He continues to report visual hallucinations. Cognition was clear. ASSESSMENT: I will continue the current diagnosis and treatment plan. I had an extensive discussion with the patient regarding the likely diagnosis and treatment based on what the patient has presented. I discussed that it would be reasonable to consider the diagnosis of major depression with psychotic features. I discussed the importance of antidepressant therapy though early on without antipsychotics. Patient is likely to have poor response rate to monotherapy with antidepressants. Given that the patient was reluctant to consider adding an antidepressant, I discussed going up on his antipsychotic, which I strongly encouraged. Patient was willing to increase his dose so his dose will go up to 100 mg at bedtime. I discussed the indications for an antipsychotic as well as potential side effects. We reviewed metabolic concerns. I discussed long-term treatment issues and that it would likely be to his benefit to look at getting started on antidepressant if not in the hospital, early on in his outpatient followup. We will continue to focus on stabilization and discharge planning. CASEY / BETH: [id number] /
[2020-02-01] MEDS: QUEtiapine 100 MG TAB PO SCH (20:55)
[2020-02-02] MEDS: NICOTINE 7MG/24HR PATCH TRANSDERM SCH (09:07)
--- NOTE | 2020-02-02 16:06 | PN ---
PROGRESS NOTE DATE OF SERVICE: 02/02/2020. CHIEF COMPLAINT: The patient had auditory and visual hallucinations talking about seeing different lights that are speaking to him. He is fearful because the voices threatening him and his family. He has had ongoing problems with depression. INTERVAL HISTORY: Patient has been doing fair. He had a quiet evening last night. He tends to keep to himself, though he does interact some with others. He does not always pay too much attention to things going on around him. He did attend most groups yesterday and seemed to make a reasonable effort in groups. He slept fairly well last night. Today he has been up. He again has been attending groups. He will spend time in his room. He talked to me today about the idea that he wanted to be discharged as soon as possible. He was asking about what the criteria is to be discharged and what it would take for him to be discharged tomorrow. He was somewhat vague when I asked him about the details as to why tomorrow seems to be a critical time for him for discharge. Mostly he talked about it in general terms. He tolerates his psychotropic medications. MENTAL STATUS EXAM: Patient gave fair eye contact. Psychomotor activity was a little slowed. Speech was monotone. He answered questions with brief responses. He did not say a lot. His thoughts were clear. He was somewhat vague at times in terms of things that he said. His affect was blunted. His mood quiet. It was difficult to say if he was distressed in any way. There was no outward evidence of thought disorder. He voiced no thoughts of harm to self or others. Cognition was clear. ASSESSMENT: I will continue the current diagnosis and treatment plan. I will continue psychotropic medications the same. Patient reports no problems with the increase in his Seroquel. He has been showing some improvement overall. We will continue to focus on stabilization and discharge planning. I anticipate the patient being discharged fairly early in the week. MMODL / IJN: [id number] /
[2020-02-02] MEDS: QUEtiapine 100 MG TAB PO SCH (21:22)
[2020-02-03] MEDS: ACETAMINOPHEN TAB 325 MG TAB PO PRN (05:02)
[2020-02-03] MEDS: NICOTINE 7MG/24HR PATCH TRANSDERM SCH (08:52)
[2020-02-03] MEDS ORDERED: BENZOCAINE 20 % GEL 15 GM TUBE MM PRN (08:57)
--- NOTE | 2020-02-03 14:01 | P.PN ---
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 He is a 29-year-old single male readmitted to the psychiatric unit on 01/28/2020 with subjective experiences that were identical to those from his initial admission in December 2018. He described auditory hallucinations as well as recurrent and intrusive thoughts that he does not identify his own. The thoughts are condemning, critical and attempted to control his behavior. Her thoughts are sometimes homicidal or suicidal in nature. He alleged that the "voices" unexpectedly reoccurred after his initial discharge. He was compliant with Seroquel 50 mg at bedtime and meeting with his individual therapist. He came to emergency room at the behest of his therapist. He reported that the intrusive thoughts and auditory hallucinations have completely resolved. He denied having homicidal or suicidal thoughts. He was keen on being discharged today and was disappointed when I told them that the treatment team recommended that he remain in the hospital because he is only recently reported an improvement of his symptoms. Objective - Vital Signs Vital signs: Vital Signs Temp 99.3 F 02/03/20 12:00 Pulse 99 02/02/20 06:36 Resp 16 02/02/20 06:36 BP 97/58 02/02/20 06:36 Pulse Ox 98 02/01/20 06:22 Intake & Output 02/02/20 02/03/20 02/03/20 18:59 06:59 18:59 Weight 72.6 kg - Exam He presented as a casually groomed 29-year-old male who was pleasant on approach. He appeared disappointed that distressed when I informed him that he would not be discharged today. He made eye contact and attended to interview. He has slight psychomotor retardation but no abnormal movements. Speech was spontaneous but vague. His affect was guarded but appropriate. He denied suicidal ideation, wishes or homicidal ideation. He denied feeling hopeless, helpless or worthless. He denied experiencing ideas reference, paranoid ideation, magical magical ideation or delusions. His thinking was concrete but his associations were logical, coherent and goal directed. He denied hallucinations and did not appear to be responding to internal stimuli. - Labs CBC & Chem 7: 01/31/20 08:12 01/31/20 08:12 Assessment and Plan Assessment: He is guarded but denies that he is experiencing psychotic symptoms. Reports an overall improvement since admission. Plan: Continue inpatient treatment due to the recent recovery of severe psychotic symptoms. Continue safety precautions. Continue Seroquel 100 mg at bedtime. terrazzo worker apprentice to coordinate discharge and aftercare services. Plan for discharge on 02/04/2020.
[2020-02-03] MEDS: QUEtiapine 100 MG TAB PO SCH (21:10)
[2020-02-04 07:16] VITALS: BP 98/61; PULSE 56; TEMP 98.2
[2020-02-04] MEDS: NICOTINE 7MG/24HR PATCH TRANSDERM SCH (08:56)
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
== END 2020-02-04 13:40 | disposition home or self-care (01) | DRG 885 ==
LOC: EC 18:09 → 3MHU 22:35
PROVIDERS: ADMIT Psychiatry & Neurology Psychiatry; ATTEND Psychiatry & Neurology Psychiatry
DX: F23 Brief psychotic disorder (principal); R45.851 Suicidal ideations; R45.850 Homicidal ideations; T50.906A Underdosing of unspecified drugs, medicaments and biological substances, initial encounter; F12.90 Cannabis use, unspecified, uncomplicated; F17.210 Nicotine dependence, cigarettes, uncomplicated; Z71.6 Tobacco abuse counseling; Z79.899 Other long term (current) drug therapy; Z86.59 Personal history of other mental and behavioral disorders; Z72.52 High risk homosexual behavior; Z91.138 Patient's unintentional underdosing of medication regimen for other reason; Y63.6 Underdosing and nonadministration of necessary drug, medicament or biological substance
CPT/HCPCS: 80053; 80061; 82075; 83036; 85025; 99285

== ENCOUNTER 2020-07-15 06:11 | Inpatient (IN) | payer MEDICAID, OTHER ==
[2020-07-15] MEDS ORDERED: LORazepam 2 MG/ML INJ IV STA (06:20)
[2020-07-15] MEDS ORDERED: LORazepam 2 MG/ML INJ IM STA (06:25)
--- NOTE | 2020-07-15 06:38 | ED ---
General Adult HPI - General Source: police, RN notes reviewed, old records reviewed Mode of arrival: ambulatory Limitations: no limitations <Amadeo Soto - Last Filed: 07/17/20 14:09> <Alyssia Centeno - Last Filed: 07/19/20 15:14> - General Chief complaint: Psychiatric Symptoms Stated complaint: Mental Health Time Seen by Provider: 07/15/20 06:16 - History of Present Illness Initial comments: 29-year-old male patient past medical history significant for depression with prior psychotic features, anxiety presents to ED. brother and father who state that over the last couple of weeks he has become more unstable mentally and state that beginning last night he began screaming to himself and yelling nonsensically. Brother lives alone denies him being sick recently any other acute complaints. Patient personally denies any suicidal ideations or any physical complaints. (Amadeo Soto) - Related Data Previous Rx's Medication Instructions Recorded Nicotine 7Mg/24Hr Patch [Habitrol] 1 patch TRANSDERM DAILY #28 patch 02/04/20 QUEtiapine [SEROquel] 100 mg PO HS #30 tab 02/04/20 Allergies Allergy/AdvReac Type Severity Reaction Status Date / Time No Known Allergies Allergy Verified 07/15/20 06:19 Review of Systems ROS Other: All systems not noted in ROS Statement are negative. <Amadeo Soto - Last Filed: 07/17/20 14:09> ROS Other: All systems not noted in ROS Statement are negative. <Alyssia Centeno - Last Filed: 07/19/20 15:14> ROS Statement: Those systems with pertinent positive or pertinent negative responses have been documented in the HPI. Past Medical History Past Medical History: No Reported History History of Any Multi-Drug Resistant Organisms: None Reported Past Surgical History: Orthopedic Surgery Additional Past Surgical History / Comment(s): right arm, Past Psychological History: ADD/ADHD, Anxiety, Depression Past Alcohol Use History: None Reported Past Drug Use History: Marijuana <Amadeo Soto - Last Filed: 07/17/20 14:09> General Exam Limitations: no limitations <Amadeo Soto - Last Filed: 07/17/20 14:09> - General Exam Comments Initial Comments: Constitutional: NAD, AOX3, Pt has pleasant affect. HEENT: NC/AT, trachea midline, neck supple, no lymphadenopathy. Posterior pharynx non erythematous, without exudates. External ears appear normal, without discharge. Mucous membranes moist. Eyes PERRLA, EOM intact. There is no scleral icterus. No pallor noted. Cardiopulmonary: RRR, no murmurs, rubs or gallops, no JVD noted. Lungs CTAB in anterior and posterior heck. No peripheral edema. Abdominal exam: Abdomen soft and non-distended. Abdomen non-tender to palpation in all 4 quadrants. Bowel sounds active in LLQ. No hepatosplenomegaly. No ecchymosis Neuro: CN II-XII grossly intact. MSK: Full active ROM in upper and lower extremities, 5/5 stregnth. (Amadeo Soto) Course Vital Signs 07/15/20 07/15/20 07/15/20 06:14 06:38 07:05 Temperature 101.7 F H 100.6 F H 99.1 F Pulse Rate 70 Respiratory 32 H Rate Blood Pressure 133/64 O2 Sat by Pulse 99 Oximetry 07/15/20 07/15/20 07/15/20 08:23 10:00 12:00 Temperature 97.4 F L Pulse Rate 103 H Respiratory 16 18 19 Rate Blood Pressure 103/59 O2 Sat by Pulse 95 Oximetry 07/15/20 07/15/20 13:00 15:50 Temperature Pulse Rate Respiratory 17 18 Rate Blood Pressure O2 Sat by Pulse Oximetry Medical Decision Making - Lab Data Result diagrams: 07/15/20 13:35 07/15/20 13:35 <Amadeo Soto - Last Filed: 07/17/20 14:09> - Lab Data Result diagrams: 07/15/20 13:35 07/15/20 13:35 <Alyssia Centeno - Last Filed: 07/19/20 15:14> - Medical Decision Making 21-year-old male patient presents ED after brother called police because he is acting erratically yelling nonsensical statements. Patient denies ever making any suicidal or homicidal statements. However he did appear to be acutely psychotic on initial evaluation by myself as well as Dr. Baeza. Patient was wrestling with police and did initially presented to ED slightly hyperpyrexic however this is likely due to exertion as patient is having other symptoms then resolved without any intervention very shortly. Laboratory investigations are obtained. Mild leukocytosis as well as mild acute kidney injury dehydration prerenal. Patient administered a fluid bolus. Labs are being redrawn. Patient has been sleeping comfortably in room is feeling much improved. Will be signed out to Dr. Centeno pending repeat laboratory investigations and psychiatric assessment. (Amadeo Soto) Repeat laboratory studies performed and are improved. Patient is evaluated by myself. I filled out a clinical certification on the patient. He is pending admission to the mental health floor (Alyssia Centeno) - Lab Data Lab Results 07/15/20 07/15/20 07/15/20 Range/Units 07:07 08:32 13:35 WBC 14.5 H (3.8-10.6) k/uL RBC 4.81 (4.30-5.90) m/uL Hgb 15.2 (13.0-17.5) gm/dL Hct 45.4 (39.0-53.0) % MCV 94.4 (80.0-100.0) fL MCH 31.7 (25.0-35.0) pg MCHC 33.5 (31.0-37.0) g/dL RDW 12.4 (11.5-15.5) % Plt Count 223 (150-450) k/uL Neutrophils % 89 % Lymphocytes % 5 % Monocytes % 3 % Eosinophils % 1 % Basophils % 0 % Neutrophils # 13.0 H (1.3-7.7) k/uL Lymphocytes # 0.8 L (1.0-4.8) k/uL Monocytes # 0.5 (0-1.0) k/uL Eosinophils # 0.2 (0-0.7) k/uL Basophils # 0.0 (0-0.2) k/uL Sodium 139 (137-145) mmol/L Potassium 5.5 H (3.5-5.1) mmol/L Chloride 107 (98-107) mmol/L Carbon Dioxide 23 (22-30) mmol/L Anion Gap 9 mmol/L BUN 15 (9-20) mg/dL Creatinine 1.39 H (0.66-1.25) mg/dL Est GFR (CKD-EPI)AfAm 79 (>60 ml/min/1.73 sqM) Est GFR (CKD-EPI)NonAf 69 (>60 ml/min/1.73 sqM) Glucose 159 H (74-99) mg/dL Estimated Ave Glu mg/dL Hemoglobin A1c (4.0-6.0) % Calcium 10.0 (8.4-10.2) mg/dL Total Bilirubin 2.3 H (0.2-1.3) mg/dL AST 54 (17-59) U/L ALT 23 (4-49) U/L Alkaline Phosphatase 39 (38-126) U/L Creatine Kinase 152 (55-170) U/L Total Protein 8.3 H (6.3-8.2) g/dL Albumin 5.2 H (3.5-5.0) g/dL Triglycerides (<150) mg/dL Cholesterol (<200) mg/dL LDL Cholesterol, Calc (0-99) mg/dL HDL Cholesterol (40-60) mg/dL TSH 1.150 (0.465-4.680) mIU/L Urine Color Urine Appearance (Clear) Urine pH (5.0-8.0) Ur Specific [place] (1.001-1.035) Urine Protein (Negative) Urine Glucose (UA) (Negative) Urine Ketones (Negative) Urine Blood (Negative) Urine Nitrite (Negative) Urine Bilirubin (Negative) Urine Urobilinogen (<2.0) mg/dL Ur Leukocyte Esterase (Negative) Urine RBC (0-5) /hpf Urine WBC (0-5) /hpf Ur Squamous Epith Cells (0-4) /hpf Urine Mucus (None) /hpf Salicylates <1.0 mg/dL Urine Opiates Screen Not Detected (NotDetected) Ur Oxycodone Screen Not Detected (NotDetected) Urine Methadone Screen Not Detected (NotDetected) Ur Propoxyphene Screen Not Detected (NotDetected) Acetaminophen <10.0 ug/mL Ur Barbiturates Screen Not Detected (NotDetected) U Tricyclic Antidepress Not Detected (NotDetected) Ur Phencyclidine Scrn Not Detected (NotDetected) Ur Amphetamines Screen Not Detected (NotDetected) U Methamphetamines Scrn Not Detected (NotDetected) U Benzodiazepines Scrn Detected H (NotDetected) Urine Cocaine Screen Not Detected (NotDetected) U Marijuana (THC) Screen Detected H (NotDetected) Serum Alcohol <10 mg/dL 07/15/20 07/15/20 07/15/20 Range/Units 13:35 13:35 13:35 WBC 10.6 (3.8-10.6) k/uL RBC 4.63 (4.30-5.90) m/uL Hgb 14.9 (13.0-17.5) gm/dL Hct 44.3 (39.0-53.0) % MCV 95.6 (80.0-100.0) fL MCH 32.1 (25.0-35.0) pg MCHC 33.6 (31.0-37.0) g/dL RDW 11.8 (11.5-15.5) % Plt Count 218 (150-450) k/uL Neutrophils % 76 % Lymphocytes % 16 % Monocytes % 4 % Eosinophils % 1 % Basophils % 0 % Neutrophils # 8.1 H (1.3-7.7) k/uL Lymphocytes # 1.7 (1.0-4.8) k/uL Monocytes # 0.5 (0-1.0) k/uL Eosinophils # 0.1 (0-0.7) k/uL Basophils # 0.0 (0-0.2) k/uL Sodium 139 (137-145) mmol/L Potassium 4.4 (3.5-5.1) mmol/L Chloride 107 (98-107) mmol/L Carbon Dioxide 24 (22-30) mmol/L Anion Gap 8 mmol/L BUN 15 (9-20) mg/dL Creatinine 1.08 (0.66-1.25) mg/dL Est GFR (CKD-EPI)AfAm >90 (>60 ml/min/1.73 sqM) Est GFR (CKD-EPI)NonAf >90 (>60 ml/min/1.73 sqM) Glucose 124 H (74-99) mg/dL Estimated Ave Glu mg/dL Hemoglobin A1c (4.0-6.0) % Calcium 9.4 (8.4-10.2) mg/dL Total Bilirubin (0.2-1.3) mg/dL AST (17-59) U/L ALT (4-49) U/L Alkaline Phosphatase (38-126) U/L Creatine Kinase (55-170) U/L Total Protein (6.3-8.2) g/dL Albumin (3.5-5.0) g/dL Triglycerides (<150) mg/dL Cholesterol (<200) mg/dL LDL Cholesterol, Calc (0-99) mg/dL HDL Cholesterol (40-60) mg/dL TSH (0.465-4.680) mIU/L Urine Color Yellow Urine Appearance Clear (Clear) Urine pH 6.0 (5.0-8.0) Ur Specific [place] 1.023 (1.001-1.035) Urine Protein 1+ H (Negative) Urine Glucose (UA) Trace H (Negative) Urine Ketones Trace H (Negative) Urine Blood Negative (Negative) Urine Nitrite Negative (Negative) Urine Bilirubin Negative (Negative) Urine Urobilinogen <2.0 (<2.0) mg/dL Ur Leukocyte Esterase Negative (Negative) Urine RBC 1 (0-5) /hpf Urine WBC 4 (0-5) /hpf Ur Squamous Epith Cells <1 (0-4) /hpf Urine Mucus Few H (None) /hpf Salicylates mg/dL Urine Opiates Screen (NotDetected) Ur Oxycodone Screen (NotDetected) Urine Methadone Screen (NotDetected) Ur Propoxyphene Screen (NotDetected) Acetaminophen ug/mL Ur Barbiturates Screen (NotDetected) U Tricyclic Antidepress (NotDetected) Ur Phencyclidine Scrn (NotDetected) Ur Amphetamines Screen (NotDetected) U Methamphetamines Scrn (NotDetected) U Benzodiazepines Scrn (NotDetected) Urine Cocaine Screen (NotDetected) U Marijuana (THC) Screen (NotDetected) Serum Alcohol mg/dL 07/15/20 07/15/20 Range/Units 13:35 13:35 WBC (3.8-10.6) k/uL RBC (4.30-5.90) m/uL Hgb (13.0-17.5) gm/dL Hct (39.0-53.0) % MCV (80.0-100.0) fL MCH (25.0-35.0) pg MCHC (31.0-37.0) g/dL RDW (11.5-15.5) % Plt Count (150-450) k/uL Neutrophils % % Lymphocytes % % Monocytes % % Eosinophils % % Basophils % % Neutrophils # (1.3-7.7) k/uL Lymphocytes # (1.0-4.8) k/uL Monocytes # (0-1.0) k/uL Eosinophils # (0-0.7) k/uL Basophils # (0-0.2) k/uL Sodium (137-145) mmol/L Potassium (3.5-5.1) mmol/L Chloride (98-107) mmol/L Carbon Dioxide (22-30) mmol/L Anion Gap mmol/L BUN (9-20) mg/dL Creatinine (0.66-1.25) mg/dL Est GFR (CKD-EPI)AfAm (>60 ml/min/1.73 sqM) Est GFR (CKD-EPI)NonAf (>60 ml/min/1.73 sqM) Glucose (74-99) mg/dL Estimated Ave Glu mg/dL 94 Hemoglobin A1c 4.9 (4.0-6.0) % Calcium (8.4-10.2) mg/dL Total Bilirubin (0.2-1.3) mg/dL AST (17-59) U/L ALT (4-49) U/L Alkaline Phosphatase (38-126) U/L Creatine Kinase (55-170) U/L Total Protein (6.3-8.2) g/dL Albumin (3.5-5.0) g/dL Triglycerides 60 (<150) mg/dL Cholesterol 131 (<200) mg/dL LDL Cholesterol, Calc 83 (0-99) mg/dL HDL Cholesterol 36 L (40-60) mg/dL TSH (0.465-4.680) mIU/L Urine Color Urine Appearance (Clear) Urine pH (5.0-8.0) Ur Specific [place] (1.001-1.035) Urine Protein (Negative) Urine Glucose (UA) (Negative) Urine Ketones (Negative) Urine Blood (Negative) Urine Nitrite (Negative) Urine Bilirubin (Negative) Urine Urobilinogen (<2.0) mg/dL Ur Leukocyte Esterase (Negative) Urine RBC (0-5) /hpf Urine WBC (0-5) /hpf Ur Squamous Epith Cells (0-4) /hpf Urine Mucus (None) /hpf Salicylates mg/dL Urine Opiates Screen (NotDetected) Ur Oxycodone Screen (NotDetected) Urine Methadone Screen (NotDetected) Ur Propoxyphene Screen (NotDetected) Acetaminophen ug/mL Ur Barbiturates Screen (NotDetected) U Tricyclic Antidepress (NotDetected) Ur Phencyclidine Scrn (NotDetected) Ur Amphetamines Screen (NotDetected) U Methamphetamines Scrn (NotDetected) U Benzodiazepines Scrn (NotDetected) Urine Cocaine Screen (NotDetected) U Marijuana (THC) Screen (NotDetected) Serum Alcohol mg/dL Disposition Is patient prescribed a controlled substance at d/c from ED?: No <Amadeo Soto - Last Filed: 07/17/20 14:09> <Alyssia Centeno - Last Filed: 07/19/20 15:14> Clinical Impression: Psychiatric disorder Disposition: ADMITTED IP TO THIS HOSP Condition: Serious
[2020-07-15] MEDS ORDERED: diphenhydrAMINE 50 MG/ML 1 ML VIAL IM STA (06:46)
[2020-07-15] MEDS ORDERED: HALOPERIDOL LACTATE 5 MG/ML 1 ML VIAL IM STA (06:46)
[2020-07-15 07:32] LABS: ALT 23 U/L (4-49); AST 54 U/L (17-59); Acetaminophen <10.0 ug/mL; African American GFR (CKD) 79 (>60 ml/min/1.73 sqM); Albumin 5.2 g/dL (3.5-5.0); Alcohol <10 mg/dL; Alkaline Phosphatase 39 U/L (38-126); Anion Gap 9 mmol/L; Blood Urea Nitrogen 15 mg/dL (9-20); Carbon Dioxide 23 mmol/L (22-30); Chloride 107 mmol/L (98-107); Creatine Kinase 152 U/L (55-170); Glucose 159 mg/dL (74-99); Non-African American GFR(CKD) 69 (>60 ml/min/1.73 sqM); Salicylate <1.0 mg/dL; Sodium 139 mmol/L (137-145); Total Bilirubin 2.3 mg/dL (0.2-1.3); Total Protein 8.3 g/dL (6.3-8.2)
[2020-07-15 07:33] LABS: Potassium 5.5 mmol/L (3.5-5.1)
[2020-07-15] MEDS ORDERED: SODIUM CHLORIDE 0.9% 1,000 ML IV ONE (07:36)
--- NOTE | 2020-07-15 07:40 | XR ---
EXAMINATION TYPE: XR chest 1V DATE OF EXAM: 07/15/2020 COMPARISON: NONE HISTORY: Unresponsive TECHNIQUE: Single frontal view of the chest is obtained. FINDINGS: There is bibasilar subsegmental consolidation. There is limited inspiration. No pneumothor ax. Heart size normal. No sizable pleural effusion. IMPRESSION: Basilar atelectasis due to reduced inspiration or early infiltrate. Correlate clinically for confirmation.
[2020-07-15 08:37] LABS: Basophils % (A) 0 %; Eosinophils # (A) 0.2 k/uL (0-0.7); Eosinophils % (A) 1 %; HCT 45.4 % (39.0-53.0); HGB 15.2 gm/dL (13.0-17.5); Lymphocytes # (A) 0.8 k/uL (1.0-4.8); Lymphocytes % (A) 5 %; MCH 31.7 pg (25.0-35.0); MCHC 33.5 g/dL (31.0-37.0); MCV 94.4 fL (80.0-100.0); Mean Platelet Volume 7.1; Monocytes # (A) 0.5 k/uL (0-1.0); Monocytes % (A) 3 %; Neutrophils % (A) 89 %; Platelet Count 223 k/uL (150-450); RBC 4.81 m/uL (4.30-5.90); RDW 12.4 % (11.5-15.5); WBC 14.5 k/uL (3.8-10.6)
[2020-07-15 14:05] LABS: Basophils % (A) 0 %; Eosinophils # (A) 0.1 k/uL (0-0.7); Eosinophils % (A) 1 %; HCT 44.3 % (39.0-53.0); HGB 14.9 gm/dL (13.0-17.5); Lymphocytes # (A) 1.7 k/uL (1.0-4.8); Lymphocytes % (A) 16 %; MCH 32.1 pg (25.0-35.0); MCHC 33.6 g/dL (31.0-37.0); MCV 95.6 fL (80.0-100.0); Mean Platelet Volume 7.4; Monocytes # (A) 0.5 k/uL (0-1.0); Monocytes % (A) 4 %; Neutrophils # (A) 8.1 k/uL (1.3-7.7); Neutrophils % (A) 76 %; Platelet Count 218 k/uL (150-450); RBC 4.63 m/uL (4.30-5.90); RDW 11.8 % (11.5-15.5); WBC 10.6 k/uL (3.8-10.6)
[2020-07-15 14:07] LABS: Appearance,Urine Clear (Clear); Bilirubin,Urine Negative (Negative); Blood,Urine Negative (Negative); Color,Urine Yellow; Glucose,Urine (UA) Trace (Negative); Ketones,Urine Trace (Negative); Leukocyte Esterase,Urine Negative (Negative); Mucus,Urine Few /hpf; Nitrite,Urine Negative (Negative); Protein,Urine 1+ (Negative); RBC,Urine 1 /hpf (0-5); Specific Gravity,Urine 1.023 (1.001-1.035); Squamous Epithelial Cell,Urine <1 /hpf (0-4); Urobilinogen,Urine <2.0 mg/dL (<2.0); WBC,Urine 4 /hpf (0-5)
[2020-07-15 14:21] LABS: Amphetamine Screen,Urine Not Detected (NotDetected); Barbiturate Screen,Urine Not Detected (NotDetected); Benzodiazepines Screen,Urine Detected (NotDetected); Cocaine Screen,Urine Not Detected (NotDetected); Methadone Screen, Urine Not Detected (NotDetected); Opiate Screen,Urine Not Detected (NotDetected); Oxycodone Screen, Urine Not Detected (NotDetected); Phencyclidine Screen,Urine Not Detected (NotDetected); Tricyclic Antidepressant,Urine Not Detected (NotDetected); Urn Cannabinoid Scrn Detected (NotDetected)
[2020-07-15 14:23] LABS: African American GFR (CKD) >90 (>60 ml/min/1.73 sqM); Anion Gap 8 mmol/L; Blood Urea Nitrogen 15 mg/dL (9-20); Calcium 9.4 mg/dL (8.4-10.2); Carbon Dioxide 24 mmol/L (22-30); Chloride 107 mmol/L (98-107); Glucose 124 mg/dL (74-99); Non-African American GFR(CKD) >90 (>60 ml/min/1.73 sqM); Potassium 4.4 mmol/L (3.5-5.1); Sodium 139 mmol/L (137-145)
[2020-07-15] MEDS ORDERED: ZIPRASIDONE 20 MG VIAL IM PRN (16:32)
[2020-07-15] MEDS ORDERED: LORazepam 1 MG TAB PO PRN (16:32)
[2020-07-15] MEDS ORDERED: MAG HYDROX/AL HYDROX/SIMETH 30 ML CUP PO PRN (16:32)
[2020-07-15] MEDS ORDERED: MAGNESIUM HYDROXIDE 2,400 MG/10 ML CUP PO PRN (16:32)
[2020-07-15] MEDS ORDERED: ACETAMINOPHEN TAB 325 MG TAB PO PRN (16:32)
--- NOTE | 2020-07-15 18:09 | P.HPMEDMHU ---
History of Present Illness H&P Date: 07/15/20 Chief Complaint: CC: acute psychosis per family Patient is a 29-year-old male with a past medical history of depression with prior psychotic features, anxiety who presents to the ED after his brother called the police because he was acting erratically and making nonsensical statements. In the ED patient had mild GENESIS and leukocytosis. Patient was given fluid boluses and repeat blood work showed that the leukocytosis and GENESIS resolved. Patient was admitted to the psych unit for psychosis. Medicine has been consulted for medical management. Patient denies any medical history. He states that he is not taking any medications at home. Patient denies any fever chills nausea and vomiting. He is currently calm and speaking coherently and answering questions appropriately. He is AAO 3. Review of Systems 10 ROS reviewed and are negative except as noted in HPI Past Medical History Past Medical History: No Reported History History of Any Multi-Drug Resistant Organisms: None Reported Past Surgical History: Orthopedic Surgery Additional Past Surgical History / Comment(s): right arm, Past Psychological History: ADD/ADHD, Anxiety, Depression Past Alcohol Use History: None Reported Past Drug Use History: Marijuana Medications and Allergies Home Medications Medication Instructions Recorded Confirmed Type Nicotine 7Mg/24Hr Patch [Habitrol] 1 patch TRANSDERM DAILY #28 patch 02/04/20 07/15/20 Rx QUEtiapine [SEROquel] 100 mg PO HS #30 tab 02/04/20 07/15/20 Rx Allergies Allergy/AdvReac Type Severity Reaction Status Date / Time No Known Allergies Allergy Verified 07/15/20 06:19 Physical Exam Osteopathic Statement: *. No significant issues noted on an osteopathic structural exam other than those noted in the History and Physical/Consult. Vitals: Vital Signs Temp Pulse Pulse Resp BP BP Pulse Ox 07/15/20 16:36 98.2 F 88 14 115/55 97 07/15/20 15:50 18 07/15/20 13:00 17 07/15/20 12:00 19 07/15/20 10:00 18 07/15/20 08:23 97.4 F L 103 H 16 103/59 95 07/15/20 07:05 99.1 F 07/15/20 06:38 100.6 F H 07/15/20 06:14 101.7 F H 70 32 H 133/64 99 Intake and Output 07/15/20 07/15/20 07/15/20 06:59 14:59 22:59 Other: Weight 90.718 kg General: [Alert and oriented, well nourished, no acute distress]. Eye: [PERRL, EOMI, normal conjunctiva]. HENT: [Normocephalic, clear tympanic membranes, normal hearing, moist oral mucosa, no scleral icterus, no sinus tenderness]. Neck: [Supple, non-tender, no carotid bruits, no JVD, no lymphadenopathy]. Lungs: [Clear to auscultation and percussion, non-labored respiration]. Heart: [Normal rate, regular rhythm, no murmur, gallop or edema]. Abdomen: [Soft, non-tender, non-distended, normal bowel sounds, no masses]. Musculoskeletal: [Normal range of motion and strength, no tenderness or swelling]. Skin: [Skin is warm, dry and pink, no rashes or lesions]. Neurologic: [Awake, alert, and oriented X3, CN II-XII intact]. Psychiatric: [Cooperative, appropriate mood and affect]. Cranial Nerve Examination - Cranial Nerves Cranial Nerve II- Optic: Intact Cranial Nerve III- Oculomotor: Intact Cranial Nerve IV- Trochlear: Intact Cranial Nerve V- Trigeminal: Intact Cranial Nerve - Abducens: Intact Cranial Nerve VII- Facial: Intact Cranial Nerve VIII- Auditory: Intact Cranial Nerve IX- Glossopharyngeal: Intact Cranial Nerve X- Vagus: Intact Cranial Nerve XI- Accessory: Intact Cranial Nerve XII- Hypoglossal: Intact Results CBC & Chem 7: 07/15/20 13:35 07/15/20 13:35 Labs: Abnormal Lab Results - Last 24 Hours (Table) 07/15/20 07/15/20 07/15/20 Range/Units 07:07 08:32 13:35 WBC 14.5 H (3.8-10.6) k/uL Neutrophils # 13.0 H (1.3-7.7) k/uL Lymphocytes # 0.8 L (1.0-4.8) k/uL Potassium 5.5 H (3.5-5.1) mmol/L Creatinine 1.39 H (0.66-1.25) mg/dL Glucose 159 H (74-99) mg/dL Total Bilirubin 2.3 H (0.2-1.3) mg/dL Total Protein 8.3 H (6.3-8.2) g/dL Albumin 5.2 H (3.5-5.0) g/dL Urine Protein (Negative) Urine Glucose (UA) (Negative) Urine Ketones (Negative) Urine Mucus (None) /hpf U Benzodiazepines Scrn Detected H (NotDetected) U Marijuana (THC) Screen Detected H (NotDetected) 07/15/20 07/15/20 07/15/20 Range/Units 13:35 13:35 13:35 WBC (3.8-10.6) k/uL Neutrophils # 8.1 H (1.3-7.7) k/uL Lymphocytes # (1.0-4.8) k/uL Potassium (3.5-5.1) mmol/L Creatinine (0.66-1.25) mg/dL Glucose 124 H (74-99) mg/dL Total Bilirubin (0.2-1.3) mg/dL Total Protein (6.3-8.2) g/dL Albumin (3.5-5.0) g/dL Urine Protein 1+ H (Negative) Urine Glucose (UA) Trace H (Negative) Urine Ketones Trace H (Negative) Urine Mucus Few H (None) /hpf U Benzodiazepines Scrn (NotDetected) U Marijuana (THC) Screen (NotDetected) Assessment and Plan Assessment: #Acute psychosis: Your psychiatry management Patient's vital signs are stable. His UDS was positive for marijuana and buffy odiazepine. His UA is negative for UTI. His labs are unremarkable. CODE STATUS:full code DVT prophylaxis: mechanical Anticipated length of stay > than [address]: home A total of 75 minutes was spent on the care of this complex patient more than 50% of the time was spent in counseling and care coordination.
[2020-07-15] MEDS: NICOTINE 14MG/24HR PATCH TRANSDERM SCH (21:13)
[2020-07-15] MEDS: QUEtiapine 100 MG TAB PO SCH (21:13)
[2020-07-16 08:30] LABS: Cholesterol 131 mg/dL (<200); HDL Cholesterol 36 mg/dL (40-60); LDL Cholesterol,Calculated 83 mg/dL (0-99); Triglycerides 60 mg/dL (<150)
[2020-07-16] MEDS: NICOTINE 14MG/24HR PATCH TRANSDERM SCH ×2 (09:21→10:14)
--- NOTE | 2020-07-16 12:52 | P.HP ---
Psychiatric H&P - . H&P Date: 07/16/20 History & Physical: Allergies Allergy/AdvReac Type Severity Reaction Status Date / Time No Known Allergies Allergy Verified 07/15/20 06:19 Vital Signs Temp 98.1 F 07/16/20 02:43 Pulse 114 H 07/16/20 02:43 Resp 16 07/16/20 02:43 BP 115/78 07/16/20 02:43 Pulse Ox 94 L 07/16/20 02:43 Laboratory Last Values WBC 10.6 k/uL (3.8-10.6) 07/15/20 13:35 RBC 4.63 m/uL (4.30-5.90) 07/15/20 13:35 Hgb 14.9 gm/dL (13.0-17.5) 07/15/20 13:35 Hct 44.3 % (39.0-53.0) 07/15/20 13:35 MCV 95.6 fL (80.0-100.0) 07/15/20 13:35 MCH 32.1 pg (25.0-35.0) 07/15/20 13:35 MCHC 33.6 g/dL (31.0-37.0) 07/15/20 13:35 RDW 11.8 % (11.5-15.5) 07/15/20 13:35 Plt Count 218 k/uL (150-450) 07/15/20 13:35 Neutrophils % 76 % 07/15/20 13:35 Lymphocytes % 16 % 07/15/20 13:35 Monocytes % 4 % 07/15/20 13:35 Eosinophils % 1 % 07/15/20 13:35 Basophils % 0 % 07/15/20 13:35 Neutrophils # 8.1 k/uL (1.3-7.7) H 07/15/20 13:35 Lymphocytes # 1.7 k/uL (1.0-4.8) 07/15/20 13:35 Monocytes # 0.5 k/uL (0-1.0) 07/15/20 13:35 Eosinophils # 0.1 k/uL (0-0.7) 07/15/20 13:35 Basophils # 0.0 k/uL (0-0.2) 07/15/20 13:35 Sodium 139 mmol/L (137-145) 07/15/20 13:35 Potassium 4.4 mmol/L (3.5-5.1) 07/15/20 13:35 Chloride 107 mmol/L (98-107) 07/15/20 13:35 Carbon Dioxide 24 mmol/L (22-30) 07/15/20 13:35 Anion Gap 8 mmol/L 07/15/20 13:35 BUN 15 mg/dL (9-20) 07/15/20 13:35 Creatinine 1.08 mg/dL (0.66-1.25) 07/15/20 13:35 Est GFR (CKD-EPI)AfAm >90 (>60 ml/min/1.73 sqM) 07/15/20 13:35 Est GFR (CKD-EPI)NonAf >90 (>60 ml/min/1.73 sqM) 07/15/20 13:35 Glucose 124 mg/dL (74-99) H 07/15/20 13:35 Calcium 9.4 mg/dL (8.4-10.2) 07/15/20 13:35 Total Bilirubin 2.3 mg/dL (0.2-1.3) H 07/15/20 07:07 AST 54 U/L (17-59) 07/15/20 07:07 ALT 23 U/L (4-49) 07/15/20 07:07 Alkaline Phosphatase 39 U/L (38-126) 07/15/20 07:07 Creatine Kinase 152 U/L (55-170) 07/15/20 07:07 Total Protein 8.3 g/dL (6.3-8.2) H 07/15/20 07:07 Albumin 5.2 g/dL (3.5-5.0) H 07/15/20 07:07 Triglycerides 60 mg/dL (<150) 07/15/20 13:35 Cholesterol 131 mg/dL (<200) 07/15/20 13:35 LDL Cholesterol, Calc 83 mg/dL (0-99) 07/15/20 13:35 HDL Cholesterol 36 mg/dL (40-60) L 07/15/20 13:35 TSH 1.150 mIU/L (0.465-4.680) 07/15/20 07:07 Urine Color Yellow 07/15/20 13:35 Urine Appearance Clear (Clear) 07/15/20 13:35 Urine pH 6.0 (5.0-8.0) 07/15/20 13:35 Ur Specific [place] 1.023 (1.001-1.035) 07/15/20 13:35 Urine Protein 1+ (Negative) H 07/15/20 13:35 Urine Glucose (UA) Trace (Negative) H 07/15/20 13:35 Urine Ketones Trace (Negative) H 07/15/20 13:35 Urine Blood Negative (Negative) 07/15/20 13:35 Urine Nitrite Negative (Negative) 07/15/20 13:35 Urine Bilirubin Negative (Negative) 07/15/20 13:35 Urine Urobilinogen <2.0 mg/dL (<2.0) 07/15/20 13:35 Ur Leukocyte Esterase Negative (Negative) 07/15/20 13:35 Urine RBC 1 /hpf (0-5) 07/15/20 13:35 Urine WBC 4 /hpf (0-5) 07/15/20 13:35 Ur Squamous Epith Cells <1 /hpf (0-4) 07/15/20 13:35 Urine Mucus Few /hpf (None) H 07/15/20 13:35 Salicylates <1.0 mg/dL 07/15/20 07:07 Urine Opiates Screen Not Detected (NotDetected) 07/15/20 13:35 Ur Oxycodone Screen Not Detected (NotDetected) 07/15/20 13:35 Urine Methadone Screen Not Detected (NotDetected) 07/15/20 13:35 Ur Propoxyphene Screen Not Detected (NotDetected) 07/15/20 13:35 Acetaminophen <10.0 ug/mL 07/15/20 07:07 Ur Barbiturates Screen Not Detected (NotDetected) 07/15/20 13:35 U Tricyclic Antidepress Not Detected (NotDetected) 07/15/20 13:35 Ur Phencyclidine Scrn Not Detected (NotDetected) 07/15/20 13:35 Ur Amphetamines Screen Not Detected (NotDetected) 07/15/20 13:35 U Methamphetamines Scrn Not Detected (NotDetected) 07/15/20 13:35 U Benzodiazepines Scrn Detected (NotDetected) H 07/15/20 13:35 Urine Cocaine Screen Not Detected (NotDetected) 07/15/20 13:35 U Marijuana (THC) Screen Detected (NotDetected) H 07/15/20 13:35 Serum Alcohol <10 mg/dL 07/15/20 07:07 07/16/20 12:42 IDENTIFYING DATA: Patient is a 29-year-old male with significant history of major depressive disorder with psychotic features admitted for bizarre behaviors, increased panic attacks, and psychosis HPI: Patient presented to the hospital on 07/15/2020 brought in by family state that the patient has been mentally unstable over the last couple of weeks which culminated in him screaming and yelling to himself nonsensically. Patient has had prior psychiatric admissions to this mental health unit including this past December and January for which she was diagnosed with major depressive disorder with psychotic features. He was primarily treated with Seroquel at the time. Patient expresses a he's been feeling "depressed" for years. He describes his depression as feeling like "I think inside myself." Endorses anhedonia as well as passive thoughts of . Denies any prior attempts at suicide. He denies any current suicidal or homicidal ideation or intention. In regards to bipolar disorder, patient is not endorsing any impulsivity, mood swings, irritability, racing thoughts, or grandiosity. He denies any increase in goal-directed behavior. He does endorse significant psychotic symptoms. He reports auditory hallucinations which primarily present themselves when he is feeling particularly depressed. He describes them as "small words or conversations." He also reports that these can be mean at times but also friendly. He endorses delusional thought processes including mind reading, thought insertion, thought projection, and some generalized paranoia. Patient reports that he feels like he does not require any medications. He would rather prefer to "talk myself through things." In regards to substance use, patient reports that he visits daily. He denies any significant alcohol use. He denies any illicit drug use. He endorses daily marijuana use. PAST PSYCHIATRIC HISTORY: Patient states that he has had 2 prior psychiatric admissions to this mental health unit. He has had previous trials of Seroquel, Adderall, and Risperdal. He reports that he had weight gain with Risperdal. Previous diagnoses include major depression with psychotic features. [facility] She denies any prior attempts at suicide. PMH:denies ALLERGIES: as per EMR CHEMICAL DEPENDENCY HISTORY: as per HPI FAMILY PSYCHIATRIC/SUBSTANCE USE HISTORY: He is unaware of any previous family history of psychiatric pathology or substance use. SOCIAL HISTORY: Patient was born and raised in [place]. He lives with his brother Kiel in an apartment. He attended a semester of college. He reports breaking up with his girlfriend 7 months ago after being with her for 10 years. MENTAL STATUS EXAM: General Appearance: Patient appears to be stated age is alert, directable, and attempts to cooperate. Patient appears to have poor hygiene and grooming. Behavior: Patient is seated without any agitated behavior. Psychomotor activity appears normal. Speech: Patient's speech is fluent and nonpressured. Mood/Affect: Patient reports their mood is depressed, affect is congruent and constricted. Suicidality/Homicidality: Patient denies having any homicidal ideation intent or plan. Denies any suicidal ideations intent or plan Perceptions: Patient denies any visual hallucinations but endorses auditory hallucinations. Though content/process: Delusional thought processes are endorsed including mind reading but thought process is linear and goal-directed. Memory and concentration: AOX3, grossly intact for the purposes of this session. Can spell "WORLD" backwards Judgment and insight: poor STRENGTHS/WEAKNESSES: strength is that patient is resilient. Weakness is that patient has poor judgment and limited insight. INTELLECT: average IMPRESSIONS: Major depressive disorder, with psychotic features versus schizoaffective disorder PLAN: -Patient is admitted under involuntary status to MHU for stabilization of psychiatric symptoms and safety. A second certification was completed and along with petition will be filed for court. -Medications : Will start patient on Invega 3 mg by mouth at bedtime for psychosis Patient is unlikely to be adherent with his medications in the outpatient setting. We will likely transition the patient to on long-acting injectable medication if the patient is court ordered. -Ativan and Geodon PRN for agitation/aggression -Patient was counselled on substance abuse -Patient was informed of the risks, benefits and side effects of the medication and patient verbally consented to taking the medications. Patient signed med consent form and was placed in chart. -Internal Medicine consult to perform medical evaluation and physical. -SW on board for discharge planning. Encourage patient to participate in groups to work on coping skills.
[2020-07-16 16:23] LABS: Hemoglobin A1C 4.9 % (4.0-6.0)
[2020-07-16] MEDS: PALIPERIDONE 3 MG TAB.ER.24 PO SCH (21:16)
[2020-07-16] MEDS: QUEtiapine 100 MG TAB PO SCH (21:16)
[2020-07-17] MEDS: NICOTINE 14MG/24HR PATCH TRANSDERM SCH (08:50)
--- NOTE | 2020-07-17 10:20 | P.PN ---
Progress Note - Text Progress Note Date: 07/17/20 Interval History: Patient was seen in his bedroom and was directable and agreeable to speak with freelance copywriter in the office. Patient continues to endorse significant symptoms of psychosis including generalized paranoia, auditory hallucinations, and delusional thinking. He continues to endorse that he is able to feel people's intentions and read thoughts. When exploring the reason for his admission including his screaming episodes, patient continues to report that it was due to him feeling overwhelmed. At this time patient denies any suicidal or homicidal ideations, intent or plan. Patient denies any auditory, visual hallucinations and denies any paranoia or delusions. He has not been compliant with any medications and states that he will refuse any medications at this time. He reports that he wants to "get to a place or I want to be without any medications." He states that he just wants to be able to find someone to talk to. Mental Status Exam: General Appearance: Patient appears to be stated age is alert, directable, and cooperative. Behavior: Patient is calmly seated without any agitated behavior. The patient will laugh inappropriately at times. Speech: Patient's speech is fluent and nonpressured. Mood/Affect: Mood is improving mildly, affect is odd but congruent and constricted. Suicidality/Homicidality: Patient denies having any suicidal or homicidal ideation intent or plan. Perceptions: Patient endorses auditory hallucinations. Though content/process: Patient endorses paranoia, mind reading, and magical thinking. Memory and concentration: AOX3, grossly intact for the purposes of this session Judgment and insight: Poor Assessment Major depressive disorder, with psychotic features versus schizoaffective disorder Plan: -Patient continues to meet criteria for inpatient psychiatric admission for symptom stabilization and safety. Patient is involuntarily admitted -Medications: Patient has been refusing Invega 3 mg at bedtime. Patient is unlikely to be adherent with medications so we are planning to transition him to a long-acting injectable. -When necessary Ativan and Geodon for agitation/aggression. -Discussed at length cessation of marijuana. -SW on board for discharge planning. Encouraged the patient to participate in milieu.
[2020-07-17] MEDS: PALIPERIDONE 3 MG TAB.ER.24 PO SCH (21:27)
[2020-07-17] MEDS: QUEtiapine 100 MG TAB PO SCH (21:28)
[2020-07-18] MEDS: NICOTINE 14MG/24HR PATCH TRANSDERM SCH (08:57)
[2020-07-18] MEDS: PALIPERIDONE 3 MG TAB.ER.24 PO SCH (21:32)
[2020-07-18] MEDS: QUEtiapine 100 MG TAB PO SCH (21:32)
--- NOTE | 2020-07-18 21:49 | PN ---
PROGRESS NOTE DATE OF SERVICE: 07/18/2020 CHIEF COMPLAINT: The patient was depressed. He had delusional thoughts and paranoia. INTERVAL HISTORY: Patient continues to be fairly distressed mainly relating to the circumstances of his hospitalization. He had a quiet day yesterday. He did attend one group. He comes out in the day area. He will wander about. It is not clear if he interacts too much with others. He will engage in conversations about the struggle he has with his thinking and talks about how he needs some guidance from therapy to help get some clarity about issues he struggled with. He acknowledges that he still has some delusional thinking. He slept fair last night. Today he has been up. He continues to wonder about. He has not attended groups today. He has been declining to take medications. He was fairly upset when I talked to him about the idea that he believed he was induced into signing the deferral, though said that while he needs help he did not believe he needed to take any psychotropic medications. He made a number of comments about how he felt the medications might impact him. It did sound as if a moderate amount of his thinking is in a delusional way. He did make references to thoughts that he suggested were voices in his head that was not just his own thinking process. He also acknowledged some continued paranoid fears. Still, when I talked to him about the potential benefit of medication specific for these experiences, he was adamantly opposed to the idea of taking any medications at all. He made various comments about the harm he felt he might experience for medications. He said that he was willing to get engaged in some kind of therapy to help him get clarity in some of the thinking that he struggles with at times. At times it was difficult to follow his train of thought in this regard. MENTAL STATUS EXAM: Patient was quite restless. He responded to questions though much of the times his thoughts were tangential. He was fairly circular about the idea that he would not take medications, though also did not feel that he should be on any kind of a court order. His affect was intense. His mood was somewhat depressed, though there were times that he could smile appropriately about things that we discussed. He seemed moderately distressed. He continues to show delusions, paranoia, make references to auditory hallucinations. He voiced no thoughts of harm to self or others. Cognition was clear. ASSESSMENT: I will continue the current diagnosis and treatment plan. We will continue to engage the patient in individual and group therapeutic activities. The patient continues to decline to take psychotropic medications. I had an extensive discussion with the patient regarding the process related to his petition. I had discussed that if he chooses not to take medications, then the likely next step would be a demand for hearing and that he would go to court. We discussed that if he had not signed the deferral the outcome would be the same as what he can anticipate. I did review the possibility that he could receive IM medications as potentially the only medication intervention that could be required for the patient. I strongly encouraged him to try taking medications orally to see if he notes any potential benefit. We discussed that this would be the least difficult path to take in terms of dealing with the petition process. We will focus on stabilization and discharge planning. CASEY / BETH: [id number] /
[2020-07-19] MEDS: NICOTINE 14MG/24HR PATCH TRANSDERM SCH (07:58)
[2020-07-19] MEDS: PALIPERIDONE 3 MG TAB.ER.24 PO SCH (22:03)
[2020-07-19] MEDS: QUEtiapine 100 MG TAB PO SCH (22:03)
--- NOTE | 2020-07-20 01:29 | PN ---
PROGRESS NOTE DATE OF SERVICE: 07/19/2020. CHIEF COMPLAINT: The patient was depressed. He had delusional thoughts and paranoia. INTERVAL HISTORY: Patient has been doing fair. He had a quiet day yesterday. He comes out in the day area. He wanders about. He will interact some with others. He tends to have generally a quiet manner. He attends a few groups though not others. He said he slept fairly well last night. Today he has been up. He continues doing about the same. Overall he still feels that he does not want to take medications. He had an extensive discussion about some of the struggles he has had over the years. He said growing up there was difficulties in his family that led to him and the other family members being in counseling from the age of 7 to 19. He said the family had worked with [facility] and had in- home as well as sessions in the office. He said in the family was his sister who is 1- 1/2 years older. He also has a brother 7 years younger and a sister who was 10 years younger. He notes that his mother was the main parent. His father apparently was around though did not live in the home during the time that he grew up. He said his father was in and out of the house, though mostly out. He says of late his mother and father have been living together. He was not able to describe what seemed to be the family issues that led them into such an extended period of counseling. He says for himself he never had friends and thus he never had anyone to talk to. He notes that he had a friend for about 10 years and then felt that friend just deserted him some months back and that was a main precipitant to his coming into the hospital in December in January. He said he has had long-term fears of the , though it was very confusing trying to understand what his references were to that. It is noted that in December and January when he was in the hospital he had auditory hallucinations with threatening voices the best I am able to tell at present, he has not been having that. He acknowledges that he has some persistent paranoid thinking, but did not give much detail. He notes that the events that brought him to the hospital were that he was at his house. He said he was having a panic attack and was in a very distressed state. He said he was not lashing out at anyone else, but he was "going through thoughts to try to understand things". Apparently, he was yelling and very agitated, which led to someone calling police. He says that his primary need at this point is to be in counseling to be able to talk through his issues with someone when I tried to go into details about specifically what issues he feels he struggles with he is not very clear about what he sees his problems for himself. He continues to be adamant about the idea of not taking medications. He seems to express some idea of fears about medications. MENTAL STATUS: Patient sat with some restlessness. He gave fairly good eye contact. He answered questions appropriately. He talked at length. He was spontaneous and interactive. He talked about fears that he has had of dying and being harmed. He seemed to be fairly open about his feelings. At times he smiled in an appropriate way. His affect for the most part seemed anxious. He had a fairly friendly manner. His mood was dysphoric. He seemed moderately distressed. He continues to make references that sound as if he struggles with paranoid delusions if not cholo hallucinations. He voiced no thoughts of harm. Cognition was clear. ASSESSMENT: I will continue the current diagnosis and treatment plan. The patient will continue off psychotropic medications. He said that it would be appropriate to have contact with his parents who have provided some support for him through these hospitalizations. He said they may be able to provide some insight about his situation and may be helpful in helping to determine follow-up care. He says that he is comfortable with the idea of [facility]. We will continue to focus on stabilization and discharge planning. MMMIRIAML / PATRICIAN: [id number] /
--- NOTE | 2020-07-20 09:41 | P.PN ---
Progress Note - Text Progress Note Date: 07/20/20 Interval History: Patient was seen wandering the hallways and was directable and agreeable to speak with curriculum writer in the office. Patient expresses that he is upset that part of deferral meant that he was agreeing to take medications if decided upon by his treatment team. He vehemently expresses that he does not require any medications that he would rather "talk things through." When exploring the reason for his admission, patient stated, "I was yelling because I was paranoid OK!" Patient states that he has been paranoid about the . He expresses that they can do anything to anyone. He also reports paranoia towards others. He continues to endorse feeling other people's energies. At this time patient denies any suicidal or homicidal ideations, intent or plan. Patient denies any auditory, visual hallucinations and denies any paranoia or delusions. He con tinues to be nonadherent with medications despite deferring. Mental Status Exam: General Appearance: Patient appears to be stated age is alert, directable, and cooperative. Behavior: Psychomotor activity is elevated. Patient was initially calmly seated but later became upset and irritable. Speech: Patient's speech is fluent, sightly pressured, rapid, increased in volume. Mood/Affect: Mood is upset, affect is congruent and irritated. Suicidality/Homicidality: Patient denies having any suicidal or homicidal ideation intent or plan. Perceptions: Patient denies any visual hallucinations and denies any auditory hallucinations Though content/process: He continues to endorse paranoid delusions. Some magical thinking. Memory and concentration: AOX3, grossly intact for the purposes of this session Judgment and insight: Poor Assessment Schizoaffective disorder, depressed type versus major depressive disorder with psychotic features Plan: -Patient continues to meet criteria for inpatient psychiatric admission for symptom stabilization and safety. Patient was involuntarily admitted. He deferred. He continues to refuse meds and will likely require a court order. -Medications: Patient has been refusing - Invega 3 mg by mouth at bedtime Seroquel 100 mg by mouth at bedtime -When necessary Ativan and Geodon for agitation/aggression. -SW on board for discharge planning. Encouraged the patient to participate in milieu.
[2020-07-20] MEDS: NICOTINE 14MG/24HR PATCH TRANSDERM SCH ×2 (09:45→10:33)
[2020-07-20] MEDS: QUEtiapine 100 MG TAB PO SCH (20:52)
[2020-07-20] MEDS: PALIPERIDONE 3 MG TAB.ER.24 PO SCH (20:52)
[2020-07-21] MEDS: NICOTINE 14MG/24HR PATCH TRANSDERM SCH (09:08)
--- NOTE | 2020-07-21 11:33 | P.PN ---
Progress Note - Text Progress Note Date: 07/21/20 Interval History: Patient was seen resting in bed and was directable and agreeable to speak with underwriter in the office. Patient continues to report that he would not want any medications. He states that in the past Seroquel helped him sleep but through meditation and other coping skills he has been able to fix this problem for himself. He continues to endorse "feeling other people's energies." He also reports mild paranoia towards others. When asking him if we may speak to his brother for collateral information, patient refuses stating that his brother does not know anything about what he is going through. This provider tried to educate the patient that we are trying to determine if there is anything else that we may be able to help with, but he continues to refuse at this time.. At this time patient denies any suicidal or homical ideations, intent or plan. P atient denies any auditory and/or visual hallucinations. Patient denies any side effects from the medications and has been compliant with meds. Mental Status Exam: General Appearance: Patient appears to be stated age is alert, directable, and intermittently cooperative. Behavior: Patient is calmly seated without any agitated behavior. Speech: Patient's speech is fluent but hyperverbal and rapid. He is interruptible. Mood/Affect: Mood is "fine." Affect is intense. Suicidality/Homicidality: Patient denies having any suicidal or homicidal ideation intent or plan. Perceptions: Patient denies any visual hallucinations and denies any auditory hallucinations Though content/process: Paranoia and magical thinking are evident. Memory and concentration: AOX3, grossly intact for the purposes of this session Judgment and insight: Poor Assessment Schizoaffective disorder, depressed type versus major depressive disorder with psychotic features Plan: -Patient continues to meet criteria for inpatient psychiatric admission for symptom stabilization and safety. Court scheduled for 07/29/2020. -This provider has been trying to obtain release of information to speak with the patient's brother to as to ascertain any more symptoms of the patient's thought disorder and to determine if there are any safety concerns. The patient has been refusing at this time. -Medications: Patient continues to refuse medications. He has been refusing Invega 3 mg by mouth at bedtime, and Seroquel 100 mg by mouth at bedtime -When necessary Ativan and Geodon for agitation/aggression. -SW on board for discharge planning. Encouraged the patient to participate in milieu.
[2020-07-21] MEDS: PALIPERIDONE 3 MG TAB.ER.24 PO SCH (20:23)
[2020-07-21] MEDS: QUEtiapine 100 MG TAB PO SCH (20:23)
[2020-07-22] MEDS: NICOTINE 14MG/24HR PATCH TRANSDERM SCH (08:35)
--- NOTE | 2020-07-22 10:22 | P.PN ---
Progress Note - Text Progress Note Date: 07/22/20 Interval History: Patient was seen in his bedroom and was directable and preferred to talk in his bedroom with no one else present. Patient reports that he is "frustrated and upset being in here." Patient is expressing why he cannot be discharged so that he may just speak to her therapist or counselor in outpatient setting. He vehemently denies the need for any medications. He states that he is scared that the dopamine blockage caused by antipsychotic medications would be terrible for him and that is not something he wants to try. He does continue to admit to elevated paranoia but denies that this is a problem. At this time patient denies any suicidal or homicidal ideations, intent or plan. Patient denies any auditory, visual hallucinations and denies any paranoia or delusions. He has been nonadherent with his medications. Mental Status Exam: General Appearance: Patient appears to be stated age is alert, directable, and cooperative. Behavior: Patient is slightly agitated, upset, tearful, and labile at times. Laughing inappropriately at times. Speech: Patient's speech is spontaneous, fluent, rapid, and increases in volume depending on subject. Mood/Affect: Mood is upset, affect is labile, tearful. Suicidality/Homicidality: Patient denies having any suicidal or homicidal ideation intent or plan. Perceptions: Patient denies any visual hallucinations and denies any auditory hallucinations Though content/process: Paranoid delusions evident. Memory and concentration: AOX3, grossly intact for the purposes of this session Judgment and insight: Poor Assessment Schizoaffective disorder, depressed type Plan: -Patient continues to meet criteria for inpatient psychiatric admission for symptom stabilization and safety. Court scheduled for 07/29/2020 -Medications: Patient continues to refuse medications. He has been refusing Invega 3 mg by mouth at bedtime, and Seroquel 100 mg by mouth at bedtime -When necessary Ativan and Geodon for agitation/aggression. -We will obtain collateral information from the patient's mother and possibly his brother if he signs a release of information. -SW on board for discharge planning. Encouraged the patient to participate in milieu.
[2020-07-22 13:33] VITALS: BMI 23.6
[2020-07-22] MEDS: PALIPERIDONE 3 MG TAB.ER.24 PO SCH (21:52)
[2020-07-22] MEDS: QUEtiapine 100 MG TAB PO SCH (21:52)
[2020-07-23] MEDS: NICOTINE 14MG/24HR PATCH TRANSDERM SCH (08:34)
--- NOTE | 2020-07-23 09:08 | P.PN ---
Progress Note - Text Progress Note Date: 07/23/20 Interval History: Patient was seen in his bedroom and was not agreeable to speak with parts data writer in the office and preferred to stay in bed. Patient reports that prior to coming to this psychiatric unit that he has been working third shift and therefore is difficult for him to adjust to this new time schedule. He continues to be nonadherent with medications and refuses to take any of them believing that he just wants to talk things out. At this time patient denies any suicidal or homical ideations, intent or plan. Patient denies any auditory, visual hallucinations and denies any paranoia or delusions. Collateral information provided by the patient's mother reveals that the patient has met all his developmental milestones on time. She does report that he has symptoms of elevated anxiety and panic but has overall been a "well behaved boy." She reports that these symptoms and on behaviors have been appearing more often after the breakup with his boyfriend. Mental Status Exam: General Appearance: Patient is resting in bed, is directable, covered in bed sheets. Behavior: Patient is lying calmly. No eye contact. Speech: Patient's speech is minimal, low in volume, monotone. Mood/Affect: Mood is tired, affect is irritable and constricted Suicidality/Homicidality: Patient denies having any suicidal or homicidal ideation intent or plan. Perceptions: Patient denies any visual hallucinations and denies any auditory hallucinations Though content/process: Patient is not endorsing delusional thought content today. Memory and concentration: AOX3, grossly intact for the purposes of this session Judgment and insight: Poor Assessment Schizoaffective disorder, depressed type Plan: -Patient continues to meet criteria for inpatient psychiatric admission for symptom stabilization and safety. Court scheduled for 07/29/2020 -Medications: Patient continues to refuse medications. He has been refusing Invega 3 mg by mouth at bedtime, and Seroquel 100 mg by mouth at bedtime -When necessary Ativan and Geodon for agitation/aggression. -SW on board for discharge planning. Encouraged the patient to participate in milieu.
[2020-07-23] MEDS: QUEtiapine 100 MG TAB PO SCH (21:44)
[2020-07-23] MEDS: PALIPERIDONE 3 MG TAB.ER.24 PO SCH (21:44)
--- NOTE | 2020-07-24 09:31 | P.PN ---
Progress Note - Text Progress Note Date: 07/24/20 Interval History: Patient was seen wandering the hallways and was directable and agreeable to speak with documentation writer in the office. Patient is not endorsing any significant symptoms of depression or anxiety at this time. At this time patient denies any suicidal or homicidal ideations, intent or plan. Patient denies any auditory, visual hallucinations and denies any delusions. He does report some mild paranoia and continues to refuse medications. Patient states that he would prefer to speak to the in flight refueling craftsman to say his peace regarding medications. Patient denies any side effects from the medications and has been compliant with meds. He denies any issues with appetite or sleep. Mental Status Exam: General Appearance: Patient appears to be stated age is alert, directable, and cooperative. Behavior: Patient is calmly seated without any agitated behavior. Speech: Patient's speech is fluent and nonpressured. Mood/Affect: Mood is improving mildly, affect is congruent and constricted. Suicidality/Homicidality: Patient denies having any suicidal or homicidal ideation intent or plan. Perceptions: Patient denies any visual hallucinations and denies any auditory hallucinations Though content/process: There is no evidence of any delusional thought content and thought process is linear and goal-directed. Memory and concentration: AOX3, grossly intact for the purposes of this session Judgment and insight: Poor Assessment Schizoaffective disorder, depressed type Plan: -Patient continues to meet criteria for inpatient psychiatric admission for symptom stabilization and safety. Court scheduled for 07/29/2020 -Medications: Patient continues to refuse medications. He has been refusing Invega 3 mg by mouth at bedtime, and Seroquel 100 mg by mouth at bedtime -When necessary Ativan and Geodon for agitation/aggression. -SW on board for discharge planning. Encouraged the patient to participate in milieu.
[2020-07-24] MEDS: NICOTINE 14MG/24HR PATCH TRANSDERM SCH ×2 (09:45→19:25)
[2020-07-24] MEDS: QUEtiapine 100 MG TAB PO SCH (21:07)
[2020-07-24] MEDS: PALIPERIDONE 3 MG TAB.ER.24 PO SCH (21:07)
[2020-07-25] MEDS: NICOTINE 14MG/24HR PATCH TRANSDERM SCH ×2 (09:42→14:59)
--- NOTE | 2020-07-25 10:53 | P.PN ---
Progress Note - Text Progress Note Date: 07/25/20 Interval history: Patient was seen in his bedroom and was directable and agreeable to speak with newswriter. Patient is not endorsing any significant symptoms of depression or anxiety today. At this time patient denies any suicidal or homicidal ideations intent or plan. Denies any Auditory or visual hallucinations. He continues to refuse any medications. He reports that he will await court order before taking any medications. This provider try to obtain more collateral information from his brother and left a voicemail. Mental status exam: General Appearance: Patient appears to be stated age is alert, directable, and cooperative. Behavior: No agitated behavior. Patient is calm and directable Speech: Patient's speech is fluent and nonpressured. Mood/Affect: Mood is improving mildly, affect is congruent and constricted. Suicidality/Homicidality: Patient denies having any suicidal or homicidal ideation intent or plan. Perceptions: Patient denies any auditory or visual hallucinations. Though content/process: There is no evidence of any delusional thought content and thought process is linear and goal-directed. Memory and concentration: AOX3, grossly intact for the purposes of this session Judgment and insight: improving mildly Assessment/Plan: Continue with current diagnosis. Patient continues to meet criteria for inpatient psychiatric admission for symptom stabilization and safety. Patient seems to refuse any medications. We will not make any changes to his currently prescribed regimen. Monitor for medication compliance and for any psychotropic medication side effects. Will continue to monitor ongoing response to treatment. Encouraged participation in milieu.
[2020-07-25] MEDS: PALIPERIDONE 3 MG TAB.ER.24 PO SCH (20:07)
[2020-07-25] MEDS: QUEtiapine 100 MG TAB PO SCH (20:08)
[2020-07-26] MEDS: NICOTINE 14MG/24HR PATCH TRANSDERM SCH ×2 (09:57→10:33)
--- NOTE | 2020-07-26 11:14 | P.PN ---
Progress Note - Text Progress Note Date: 07/26/20 Interval history: Patient was seen in his room and was directable and agreeable to speak with service writer advisor. Patient reports that he is feeling "fine." He asked this provider if it is an issue he talks to himself. He does endorse paranoia and despite psychoeducation on paranoia and psychosis, the patient states that he will not require any medications and prefers to "talk things out." At this time patient denies any suicidal or homicidal ideations intent or plan. Denies any Auditory or visual hallucinations. Patient denies any side effects from the medications and has been compliant with meds. Mental status exam: General Appearance: Patient appears to be stated age is alert, directable, and cooperative. Behavior: No agitated behavior. Patient is calm and directable. psychomotor activity slightly elevated. Speech: Patient's speech is fluent and nonpressured. Volume is increased. Mood/Affect: Mood is okay, affect is congruent and a little labile. Suicidality/Homicidality: Patient denies having any suicidal or homicidal ideation intent or plan. Perceptions: Patient denies any auditory or visual hallucinations. Though content/process: There is no evidence of any delusional thought content and thought process is linear and goal-directed. Memory and concentration: AOX3, grossly intact for the purposes of this session Judgment and insight: improving mildly Assessment/Plan: Continue with current diagnosis. Patient continues to meet criteria for inpatient psychiatric admission for symptom stabilization and safety. Patient will be maintained on current psychotropic medication regimen which he has been refusing. We are awaiting court order. Monitor for medication compliance and for any psychotropic medication side effects. Will continue to monitor ongoing response to treatment. Encouraged participation in milieu.
[2020-07-26] MEDS: PALIPERIDONE 3 MG TAB.ER.24 PO SCH (21:14)
[2020-07-26] MEDS: QUEtiapine 100 MG TAB PO SCH (21:14)
[2020-07-27] MEDS: NICOTINE 14MG/24HR PATCH TRANSDERM SCH (09:19)
--- NOTE | 2020-07-27 10:17 | P.PN ---
Progress Note - Text Progress Note Date: 07/27/20 Interval History: Patient was seen resting in bed and was directable and agreeable to speak with play writer in his room privately. Patient reports that he is quite upset today. He states that he is trying to help his other peers on the unit but feels like he is putting too much on himself and feeling all their pain. He reports that he admires the mental health team and their ability to cope with "the patients are going through. At this time he is not endorsing any suicidal or homicidal ideation, intention, and/or plan. He is not reporting any auditory or visual hallucinations. He continues to report feeling people's energies. He is not taking any medications at this time. Mental Status Exam: General Appearance: Patient appears to be stated age is alert, directable, and cooperative. Behavior: Patient is resting in bed with no eye contact. He is quite tearful. Speech: Patient's speech is high in volume and circumstantial. Mood/Affect: Mood is upset, affect is congruent and tearful. Labile at times. Suicidality/Homicidality: Patient denies having any suicidal or homicidal ideation intent or plan. Perceptions: Patient denies any visual hallucinations and denies any auditory hallucinations Though content/process: Some magical thinking but otherwise devoid of any other delusional thought content at this time. Memory and concentration: AOX3, grossly intact for the purposes of this session Judgment and insight: Poor Assessment Schizoaffective disorder, depressed type Plan: -Patient continues to meet criteria for inpatient psychiatric admission for symptom stabilization and safety. Court scheduled for 07/29/2020. -Medications: Patient continues to refuse Invega 3 mg by mouth at bedtime and Seroquel 100 mg by mouth at bedtime. -When necessary Ativan and Geodon for agitation/aggression. -NRT - nicotine patch -SW on board for discharge planning. Encouraged the patient to participate in milieu.
[2020-07-27] MEDS: PALIPERIDONE 3 MG TAB.ER.24 PO SCH (20:51)
[2020-07-27] MEDS: QUEtiapine 100 MG TAB PO SCH (20:51)
--- NOTE | 2020-07-28 10:27 | P.PN ---
Progress Note - Text Progress Note Date: 07/28/20 Interval History: Patient was seen resting in bed and refused to get out of bed to speak with this provider. He reports he is feeling very tired. He denies any depression when asked. At this time patient denies any suicidal or homicidal ideations, intent or plan. Patient denies any auditory, visual hallucinations and denies any paranoia or delusions. Patient continues to refuse medications. He is scheduled for court tomorrow. Mental Status Exam: General Appearance: Patient appears to be stated age is laying in bed, appears disheveled, covered in his bed sheets. Behavior: No eye contact. Refuses to get out of bed. Speech: Patient's speech is monotone, nonspontaneous, low in volume. Mood/Affect: Mood is "tired," affect is mood congruent, sad. Suicidality/Homicidality: Patient denies having any suicidal or homicidal ideation intent or plan. Perceptions: Patient denies any visual hallucinations and denies any auditory hallucinations Though content/process: Unable to fully assess as patient refused to answer beyond one-word replies of "yes or no." Memory and concentration: AOX3, grossly intact for the purposes of this session Judgment and insight: Poor Assessment Schizoaffective disorder, depressed type Plan: -Patient continues to meet criteria for inpatient psychiatric admission for symptom stabilization and safety. Court scheduled for 07/29/2020. -Medications: Patient continues to refuse Invega 3 mg by mouth at bedtime and Seroquel 100 mg by mouth at bedtime. -When necessary Ativan and Geodon for agitation/aggression. -NRT - nicotine patch -SW on board for discharge planning. Encouraged the patient to participate in milieu. ]
[2020-07-28] MEDS: NICOTINE 14MG/24HR PATCH TRANSDERM SCH (11:47)
[2020-07-28] MEDS: QUEtiapine 100 MG TAB PO SCH (21:16)
[2020-07-28] MEDS: PALIPERIDONE 3 MG TAB.ER.24 PO SCH (21:16)
[2020-07-29] MEDS: NICOTINE 14MG/24HR PATCH TRANSDERM SCH (09:01)
--- NOTE | 2020-07-29 13:46 | P.PN ---
Progress Note - Text Progress Note Date: 07/29/20 Interval History: Patient was seen wandering the hallways and was directable and agreeable to speak with hand sign writer. Patient expresses a strong desire not to be placed on medications. He is upset when this provider explained what a court-order for medications would mean for him. At this time patient denies any suicidal or homical ideations, intent or plan. Patient denies any auditory, visual hallucinations and denies any paranoia or delusions. Mental Status Exam: General Appearance: Patient appears to be stated age is alert, directable, and cooperative. Behavior: Patient is pacing the halls and has elevated psychomotor activity. Speech: Patient's speech increases in volume when upset. He is noted to talk to himself by staff. Mood/Affect: Mood is anxious, affect is congruent and nervous. Suicidality/Homicidality: Patient denies having any suicidal or homicidal idea tion intent or plan. Perceptions: Patient denies any visual hallucinations and denies any auditory hallucinations Though content/process: There is no evidence of any delusional thought content and thought process is linear and goal-directed. Memory and concentration: AOX3, grossly intact for the purposes of this session Judgment and insight: Very poor Assessment Schizoaffective disorder, depressed type Plan: -Patient continues to meet criteria for inpatient psychiatric admission for symptom stabilization and safety. Patient will be present for court today. We will wait for a court order prior to the initiation of medications. -Medications: Once court order is in place, will start invega 3 mg by mouth at bedtime for psychosis/mood stabilization. -When necessary Ativan and Geodon for agitation/aggression. -NRT - nicotine patch -SW on board for discharge planning. Encouraged the patient to participate in milieu.
[2020-07-29] MEDS: PALIPERIDONE 3 MG TAB.ER.24 PO SCH (21:42)
[2020-07-30] MEDS: NICOTINE 14MG/24HR PATCH TRANSDERM SCH ×2 (08:33→11:03)
[2020-07-30] MEDS ORDERED: OLANZapine 10 MG VIAL IM PRN (11:17)
--- NOTE | 2020-07-30 11:25 | P.PN ---
Progress Note - Text Progress Note Date: 07/30/20 Interval History: Patient was seen in bed and refused to get out of bed to speak with this senior writer. Patient reports that he does not agree with the court order decision. He states that being given the medications against his will is "rape." He is not endorsing any suicidal or homicidal ideations, intentions, and/or plan. He is not reporting any auditory or visual hallucinations. He refuses to participate in further interview. Mental Status Exam: General Appearance: Patient appears stated age, disheveled, and uncooperative. Behavior: Patient is lying in bed and refuses to make eye contact with this provider. Speech: Patient's speech is fluent and nonpressured. Mood/Affect: Mood is angry, affect is congruent and upset. Suicidality/Homicidality: Patient denies having any suicidal or homicidal ideation intent or plan. Perceptions: Patient denies any visual hallucinations and denies any auditory hallucinations Though content/process: Unable to assess. Memory and concentration: AOX3, grossly intact for the purposes of this session Judgment and insight: Very poor Assessment Schizoaffective disorder, depressed type Plan: -Patient continues to meet criteria for inpatient psychiatric admission for symptom stabilization and safety. Patient has been court ordered for medications on 07/29/2020. -Medications: We will start Invega 3 mg by mouth at bedtime for psychosis/mood stabilization. As patient is on court order, if he refuses the medication he will be administered Zyprexa 5 mg IM -When necessary Ativan and Geodon for agitation/aggression. -NRT - [nicotine patch] -SW on board for discharge planning. Encouraged the patient to participate in milieu.
[2020-07-30] MEDS: PALIPERIDONE 3 MG TAB.ER.24 PO SCH ×2 (21:11→21:16)
[2020-07-31] MEDS: NICOTINE 14MG/24HR PATCH TRANSDERM SCH (08:32)
--- NOTE | 2020-07-31 10:04 | P.PN ---
Progress Note - Text Progress Note Date: 07/31/20 Interval History: Patient was seen resting in bed and was directable and agreeable to speak with specification writer in the office. Patient vehemently reports that he does not want to take any medications. He does not agree with a court order with determination that he will require any medications to treat his mental illness. At this time patient denies any suicidal or homicidal ideations, intent or plan. He expresses great dissatisfaction with his provider stating that he is feeling like he is not being listened to and that he does not need any medications. He reports that he is only in here because of a panic attack. This provider tried discussing the patient's prior psychiatric admissions and history of psychotic symptoms but the patient refuses to acknowledge that he has any psychotic symptoms past or present. He states that he was "feeling ill and now that I'm healthier I do not need to be on any medications." Mental Status Exam: General Appearance: Patient appears stated age, is alert, uncooperative Behavior: Patient is seated in his bed with elevated psychomotor activity. Speech: Patient's speech is high in volume, slightly pressured. Mood/Affect: Mood is angry, affect is annoyed. Suicidality/Homicidality: Patient denies having any suicidal or homicidal ideation intent or plan. Perceptions: Patient denies any visual hallucinations and denies any auditory hallucinations Though content/process: There is no evidence of any delusional thought content and thought process is linear and goal-directed. Memory and concentration: AOX3, grossly intact for the purposes of this session Judgment and insight: Very poor Assessment Schizoaffective disorder, depressed type Plan: -Patient continues to meet criteria for inpatient psychiatric admission for symptom stabilization and safety. Patient has signed adult voluntary form and medication consent and was placed in patient's chart. -Medications: We will increase Invega to 3 mg by mouth twice daily tomorrow for psychosis/mood stabilization. As patient is on court order, if he refuses the medication he will be administered Zyprexa 5 mg IM -When necessary Ativan and Geodon for agitation/aggression. -NRT - nicotine patch -SW on board for discharge planning. Encouraged the patient to participate in milieu.
[2020-07-31] MEDS: PALIPERIDONE 3 MG TAB.ER.24 PO SCH (21:01)
[2020-08-01] MEDS: PALIPERIDONE 3 MG TAB.ER.24 PO SCH ×2 (08:45→20:43)
[2020-08-01] MEDS: NICOTINE 14MG/24HR PATCH TRANSDERM SCH (08:45)
[2020-08-01 11:00] LABS: ALT 52 U/L (4-49); AST 23 U/L (17-59); African American GFR (CKD) >90 (>60 ml/min/1.73 sqM); Albumin 4.6 g/dL (3.5-5.0); Alkaline Phosphatase 39 U/L (38-126); Anion Gap 7 mmol/L; Blood Urea Nitrogen 15 mg/dL (9-20); Calcium 9.8 mg/dL (8.4-10.2); Carbon Dioxide 28 mmol/L (22-30); Chloride 102 mmol/L (98-107); Glucose 91 mg/dL (74-99); Non-African American GFR(CKD) >90 (>60 ml/min/1.73 sqM); Potassium 4.5 mmol/L (3.5-5.1); Sodium 137 mmol/L (137-145); Total Bilirubin 0.8 mg/dL (0.2-1.3); Total Protein 7.2 g/dL (6.3-8.2)
--- NOTE | 2020-08-01 20:44 | PN ---
PROGRESS NOTE DATE OF SERVICE: 08/01/2020 CHIEF COMPLAINT: The patient was depressed. He had delusional thoughts and paranoia. INTERVAL HISTORY: Patient has been doing fairly well. He had a quiet day yesterday. He comes out in the day area. He wanders about. He tends to keep to himself, though he will interact with others. He did not attend any groups yesterday. He just started his Invega on the . He has not had any immediate problems with the start up of the medication. He slept fairly well last night. Today he has been up. Again, he has been out some. Mostly he has a quiet manner. He attended one group today and seemed to participate in a reasonable range. It is noteworthy that he talked quite a bit about the idea of having started medications. He said that for a long time he was reluctant if not resistant to starting the medication, though he has fairly good understanding of the court order issue and says he is fully cooperative with taking medications. He thinks that maybe the medications have helped him to some degree since they have been started. He says that he intends to follow through with [facility] and says he does appreciate the help he has gotten on the unit. He had been hoping to go to [facility] for counseling, which is something he has talked about all along even when he did not want to take medications. He said he is looking forward to that even more now. He is hopeful to be discharged fairly soon. I talked to him about the possibility of a long- acting injectable, though he said he is comfortable taking the oral medication and would not be inclined to take the shot. He tolerates his psychotropic medication. MENTAL STATUS: Patient sat with a little restlessness he gave fairly good eye contact he answered questions with direct responses. His thoughts were clear. He was spontaneous and interactive. His affect was in a reasonable range. He smiled some. He had a calm, pleasant manner. He was a little reserved in how he presents himself. His mood was not clearly down or depressed. He did not appear to be distressed. There was no outward evidence of thought disorder. He voiced no thoughts of harm. Cognition was clear. ASSESSMENT: I will continue the current diagnosis and treatment plan. We will continue to make efforts to engage the patient in individual and group therapeutic activities. I will continue psychotropic medications the same, namely Invega 3 mg twice a day. I did note with the patient that he might talk to Dr. Mccloud about possibly switching to 6 mg once a day dosing, which he was in agreement with. Once a day dosing may help him with medication compliance. I also encouraged him to talk to Dr. Booth about the possibility of a long-acting injectable. I reviewed the court order issues with the patient in regards to the order that will continue for 180 days. The patient stated he will be compliant with treatment as he appreciates the help he has been getting. We will focus on stabilization and discharge planning. KENNETHL / PATRICIAN: [id number] / PATEL
[2020-08-02] MEDS: PALIPERIDONE 3 MG TAB.ER.24 PO SCH ×2 (09:08→20:15)
[2020-08-02] MEDS: NICOTINE 14MG/24HR PATCH TRANSDERM SCH (09:08)
--- NOTE | 2020-08-02 13:54 | PN ---
PROGRESS NOTE DATE OF SERVICE: 08/02/2020 CHIEF COMPLAINT: The patient was depressed. He had delusional thoughts and paranoia. INTERVAL HISTORY: Patient has been doing fair. He seems to be doing progressively better overall. He had a quiet day yesterday. He comes out in the day area. He wanders about. Sometimes he will engage with others in conversation. For the most part he tends to keep to himself. He attended one group yesterday and was appropriate in the group. He is focused on discharge. He slept well last night. Today he has been up. Again, he has been out in the day area. He attended group today. He was described as "anxious, appropriate complaining and grandiose." There were no details to describe particulars. When I talked to the patient he had no specific complaints or concerns. He did say several times that he thanked me for care and that he was very pleased with the care he has received on the psychiatric unit. He reported no problems with his medications. MENTAL STATUS EXAM: Patient gave fairly good eye contact. Psychomotor activity was somewhat restless. He answered questions appropriately. His thoughts were clear. He had a somewhat constricted affect. He had a friendly manner. His mood was quiet though not down or depressed. He did not appear to be distressed. Staff noted that he did not seem to show any signs of self talk. There was no indication of thoughts of harm. He was oriented and alert. ASSESSMENT: I will continue the current diagnosis and treatment plan. I will continue psychotropic medications the same. Patient appears to be showing progress. He voices no complaints about medications and indicates that he is very motivated to continue on medications and to be getting followup through [facility]. He is hopeful to be discharged soon and does seem to be making progress in that direction. We will focus on stabilization and discharge planning. MMODL / IJN: [id number] /
[2020-08-03] MEDS: NICOTINE 14MG/24HR PATCH TRANSDERM SCH (08:59)
[2020-08-03] MEDS: PALIPERIDONE 3 MG TAB.ER.24 PO SCH ×2 (08:59→21:13)
[2020-08-03 09:06] VITALS: BP 145/77; PULSE 97; RESP 20; TEMP 97.8
--- NOTE | 2020-08-03 10:11 | P.PN ---
Progress Note - Text Progress Note Date: 08/03/20 Interval History: Patient was seen wandering the hallways and was directable and agreeable to speak with senior mortgage underwriter in the office. Patient expresses that he is feeling better while on the medications. He reports that Invega is helping him clear his head and be more focused on the tasks at hand. He is not endorsing any auditory or visual hallucinations. He is not reporting any paranoia or delusions. He acknowledges that marijuana has made him paranoid in the past and that he would try to avoid this in the future. He is denying any side effects of the medications at this time. He does express concern of sexual side effects but denies any at this time. At this time, the patient denies any suicidal or homicidal ideations, intentions, and/or plan. He has been adherent with his medications. Mental Status Exam: General Appearance: Patient appears to be stated age is alert, directable, and cooperative. Behavior: Patient is calmly seated without any agitated behavior. Speech: Patient's speech is fluent and nonpressured. Mood/Affect: Mood is improving mildly, affect is congruent and constricted. Suicidality/Homicidality: Patient denies having any suicidal or homicidal ideation intent or plan. Perceptions: Patient denies any visual hallucinations and denies any auditory hallucinations Though content/process: There is no evidence of any delusional thought content and thought process is linear and goal-directed. Memory and concentration: AOX3, grossly intact for the purposes of this session Judgment and insight: Improving mildly Assessment Schizoaffective disorder, depressed type Plan: -Patient continues to meet criteria for inpatient psychiatric admission for symptom stabilization and safety. Patient is currently under court order as of 07/29/2020. -Medications: Continue Invega 3 mg by mouth twice a day for psychosis/mood stabilization As patient is on court order, if he refuses the medication he will be administered Zyprexa 5 mg IM -When necessary Ativan and Geodon for agitation/aggression. -NRT - nicotine patch -SW on board for discharge planning. Encouraged the patient to participate in milieu.
[2020-08-04] MEDS: NICOTINE 14MG/24HR PATCH TRANSDERM SCH (08:31)
[2020-08-04] MEDS: PALIPERIDONE 3 MG TAB.ER.24 PO SCH (08:31)
--- NOTE | 2020-08-04 09:54 | P.DS ---
Providers Date of admission: 07/15/20 15:04 Expected date of discharge: 08/04/20 Attending physician: Rigo Mccloud MD Consults: 07/15/20 16:32 Consult Physician Routine Consulting Provider: Kit Rutledge Consult Reason/Comments: New admission H & P Do you want consulting provider notified?: Already Contacted Primary care physician: Stated None - Discharge Diagnosis(es) (1) Schizoaffective disorder Current Visit: Yes Status: Acute Priority: High (2) Tobacco use Current Visit: Yes Status: Chronic Priority: Medium (3) Cannabis use with psychotic disorder Current Visit: Yes Status: Acute Priority: Medium Hospital Course: Admission HPI: Patient is a 29-year-old male with significant history of major depressive disorder with psychotic features admitted for bizarre behaviors, increased panic attacks, and psychosis. Patient presented to the hospital on 07/15/2020 brought in by family state that the patient has been mentally unstable over the last couple of weeks which culminated in him screaming and yelling to himself nonsensically. Patient has had prior psychiatric admissions to this mental health unit including this past December and January for which she was diagnosed with major depressive disorder with psychotic features. He was primarily treated with Seroquel at the time. Patient expresses a he's been feeling "depressed" for years. He describes his depression as feeling like "I think inside myself." Endorses anhedonia as well as passive thoughts of . Denies any prior attempts at suicide. He denies any current suicidal or homicidal ideation or intention. In regards to bipolar disorder, patient is not endorsing any impulsivity, mood swings, irritability, racing thoughts, or grandiosity. He denies any increase in goal-directed behavior. He does endorse significant psychotic symptoms. He reports auditory hallucinations which primarily present themselves when he is feeling particularly depressed. He describes them as "small words or conversations." He also reports that these can be mean at times but also friendly. He endorses delusional thought processes including mind reading, thought insertion, thought projection, and some generalized paranoia. Patient reports that he feels like he does not require any medications. He would rather prefer to "talk myself through things." In regards to substance use, patient reports that he visits daily. He denies any significant alcohol use. He denies any illicit drug use. He endorses daily marijuana use. Hospital course: Upon admission to the unit patient was initially guarded and endorsed psychotic symptoms including paranoia, mind reading, and elevated anxiety. Patient was however directable but refused to commence any psychopharmacological treatment. Patient got along well with other patients on the unit and followed unit protocol. Due to the patient refusing medications, and recurrent psychiatric admissions, the patient was petitioned and certified. The patient initially deferred court but did not understand that by deferring he also agreed to medications. Patient continued to endorse psychotic symptoms during his hospital stay and was noted by staff to engage in much self talk especially at night. Patient continued to refuse medications and a formal court hearing took place on 07/29/2020. Patient was initially very upset upon being court ordered. Patient was started on Invega which he initially refused but one presented with the IM Zyprexa, the patient became adherent with medication. Patient expressed significant improvement with Invega including "a clearer mind, less confused, less paranoid and less anxious." Patient spoke of his stressors and engaged in therapy both group and individual. Patient was also seen by medical team for history and physical exam. Throughout the course of the hospitalization patient gradually improved with regards to psychosis, mood, anxiety, and sleep and became future oriented with improved insight and judgment. On the day of discharge patient denied any suicidal or homicidal ideations intent or plan denied any auditory or visual hallucinations. Patient endorsed wanting to live for his health and future. The patient denied any access to guns or weapons. Patient denied any paranoia and did not endorse any delusions. Patient does have a significant history of substance abuse however was counseled on abstaining from all substances including alcohol and marijuana. Patient was also counseled on the medications and need for regular compliance and was encouraged to follow-up with their outpatient appointment for mental health and also for primary care. Prior to discharge a family meeting will be arranged by rn social services to answer any questions and ensure safety upon discharge. Mental status exam: General Appearance: Patient appears to be stated age is alert, pleasant, and cooperative. Patient is in no acute distress and has fair hygiene and grooming Behavior: Patient is calmly seated without any agitated behavior. Speech: Patient's speech is fluent and nonpressured. Mood/Affect: Patient reports their mood is "much better", affect is congruent and euthymic. Suicidality/Homicidality: Patient denies having any suicidal or homicidal ideation intent or plan. Perceptions: Patient denies any auditory or visual hallucinations. Though content/process: There is no evidence of any delusional thought content and thought process is linear and goal-directed. more future oriented Memory and concentration: AOX3, grossly intact for the purposes of this session. Can spell "WORLD" backwards correctly. Judgment and insight: Improved with guarded prognosis Impression: Schizoaffective disorder, depressed type Plan: -Continue with discharge today as patient has improved and stabilized psychiatrically and is not currently an imminent threat to himself and/or others. Patient will remain at chronically elevated risk for harm to self and/or others due to his history of marijuana abuse. -Continue medications: Invega 3 mg by mouth twice a day for mood stabilization/psychosis. -Patient was counseled on the need for medication compliance and appropriate follow-up at mental health and also primary care for medical issues. Patient verbalized understanding and agreed. -Social work to arrange for and conduct family meeting to ensure safety upon discharge and answer any questions/concerns. Social work also to arrange for patients follow up appointments with [facility] for psychiatric care along with follow up with primary care provider. -Patient counseled on abstaining from recreational drugs and marijuana and alcohol. Was informed/educated on the adverse effects on their physical and mental health. Patient verbally agreed and understood. -Patient was instructed to return to the hospital or seek immediate medical care if their psychiatric or medical symptoms do worsen or reoccur. -Psychoeducation and supportive therapy provided to patient. Risks and benefits of pharmacological treatment versus the risks and benefits of nontreatment weight and discussed. Informed consent discussion held. Common side effects of psychotropics discussed such as, but not limited to headache, GI disturbance, sexual dysfunction, movement disorders, sedation, and orthostatic hypotension. Life threatening and blackbox warnings of prescribed medications also discussed. Potential risks of operating a vehicle or heavy machinery discussed with patient at length. Advised on importance of compliance and a reliable and responsible manner. Patient advised to review FDA consumer labeling of all medications prior to taking. Patient verbalized understanding of potential risks, and agrees with current treatment plan. Patient advised to medically contact physician/emergency personnel if any acute changes in condition occur. Vital Signs Temp 97.8 F 08/03/20 08:58 Pulse 97 08/03/20 08:58 Resp 20 08/03/20 08:58 BP 145/77 08/03/20 08:58 Pulse Ox 97 08/03/20 08:58 Laboratory Results WBC 10.6 k/uL (3.8-10.6) 07/15/20 13:35 RBC 4.63 m/uL (4.30-5.90) 07/15/20 13:35 Hgb 14.9 gm/dL (13.0-17.5) 07/15/20 13:35 Hct 44.3 % (39.0-53.0) 07/15/20 13:35 MCV 95.6 fL (80.0-100.0) 07/15/20 13:35 MCH 32.1 pg (25.0-35.0) 07/15/20 13:35 MCHC 33.6 g/dL (31.0-37.0) 07/15/20 13:35 RDW 11.8 % (11.5-15.5) 07/15/20 13:35 Plt Count 218 k/uL (150-450) 07/15/20 13:35 Neutrophils % 76 % 07/15/20 13:35 Lymphocytes % 16 % 07/15/20 13:35 Monocytes % 4 % 07/15/20 13:35 Eosinophils % 1 % 07/15/20 13:35 Basophils % 0 % 07/15/20 13:35 Neutrophils # 8.1 k/uL (1.3-7.7) H 07/15/20 13:35 Lymphocytes # 1.7 k/uL (1.0-4.8) 07/15/20 13:35 Monocytes # 0.5 k/uL (0-1.0) 07/15/20 13:35 Eosinophils # 0.1 k/uL (0-0.7) 07/15/20 13:35 Basophils # 0.0 k/uL (0-0.2) 07/15/20 13:35 Sodium 137 mmol/L (137-145) 08/01/20 10:15 Potassium 4.5 mmol/L (3.5-5.1) 08/01/20 10:15 Chloride 102 mmol/L (98-107) 08/01/20 10:15 Carbon Dioxide 28 mmol/L (22-30) 08/01/20 10:15 Anion Gap 7 mmol/L 08/01/20 10:15 BUN 15 mg/dL (9-20) 08/01/20 10:15 Creatinine 1.01 mg/dL (0.66-1.25) 08/01/20 10:15 Est GFR (CKD-EPI)AfAm >90 (>60 ml/min/1.73 sqM) 08/01/20 10:15 Est GFR (CKD-EPI)NonAf >90 (>60 ml/min/1.73 sqM) 08/01/20 10:15 Glucose 91 mg/dL (74-99) 08/01/20 10:[address] Glu mg/dL 94 07/15/20 13:35 Hemoglobin A1c 4.9 % (4.0-6.0) 07/15/20 13:35 Calcium 9.8 mg/dL (8.4-10.2) 08/01/20 10:15 Total Bilirubin 0.8 mg/dL (0.2-1.3) 08/01/20 10:15 AST 23 U/L (17-59) 08/01/20 10:15 ALT 52 U/L (4-49) H 08/01/20 10:15 Alkaline Phosphatase 39 U/L (38-126) 08/01/20 10:15 Creatine Kinase 152 U/L (55-170) 07/15/20 07:07 Total Protein 7.2 g/dL (6.3-8.2) 08/01/20 10:15 Albumin 4.6 g/dL (3.5-5.0) 08/01/20 10:15 Triglycerides 60 mg/dL (<150) 07/15/20 13:35 Cholesterol 131 mg/dL (<200) 07/15/20 13:35 LDL Cholesterol, Calc 83 mg/dL (0-99) 07/15/20 13:35 HDL Cholesterol 36 mg/dL (40-60) L 07/15/20 13:35 TSH 1.150 mIU/L (0.465-4.680) 07/15/20 07:07 Urine Color Yellow 07/15/20 13:35 Urine Appearance Clear (Clear) 07/15/20 13:35 Urine pH 6.0 (5.0-8.0) 07/15/20 13:35 Ur Specific [place] 1.023 (1.001-1.035) 07/15/20 13:35 Urine Protein 1+ (Negative) H 07/15/20 13:35 Urine Glucose (UA) Trace (Negative) H 07/15/20 13:35 Urine Ketones Trace (Negative) H 07/15/20 13:35 Urine Blood Negative (Negative) 07/15/20 13:35 Urine Nitrite Negative (Negative) 07/15/20 13:35 Urine Bilirubin Negative (Negative) 07/15/20 13:35 Urine Urobilinogen <2.0 mg/dL (<2.0) 07/15/20 13:35 Ur Leukocyte Esterase Negative (Negative) 07/15/20 13:35 Urine RBC 1 /hpf (0-5) 07/15/20 13:35 Urine WBC 4 /hpf (0-5) 07/15/20 13:35 Ur Squamous Epith Cells <1 /hpf (0-4) 07/15/20 13:35 Urine Mucus Few /hpf (None) H 07/15/20 13:35 Salicylates <1.0 mg/dL 07/15/20 07:07 Urine Opiates Screen Not Detected (NotDetected) 07/15/20 13:35 Ur Oxycodone Screen Not Detected (NotDetected) 07/15/20 13:35 Urine Methadone Screen Not Detected (NotDetected) 07/15/20 13:35 Ur Propoxyphene Screen Not Detected (NotDetected) 07/15/20 13:35 Acetaminophen <10.0 ug/mL 07/15/20 07:07 Ur Barbiturates Screen Not Detected (NotDetected) 07/15/20 13:35 U Tricyclic Antidepress Not Detected (NotDetected) 07/15/20 13:35 Ur Phencyclidine Scrn Not Detected (NotDetected) 07/15/20 13:35 Ur Amphetamines Screen Not Detected (NotDetected) 07/15/20 13:35 U Methamphetamines Scrn Not Detected (NotDetected) 07/15/20 13:35 U Benzodiazepines Scrn Detected (NotDetected) H 07/15/20 13:35 Urine Cocaine Screen Not Detected (NotDetected) 07/15/20 13:35 U Marijuana (THC) Screen Detected (NotDetected) H 07/15/20 13:35 Serum Alcohol <10 mg/dL 07/15/20 07:07 Allergies Allergy/AdvReac Type Severity Reaction Status Date / Time No Known Allergies Allergy Verified 07/15/20 06:19 Patient Condition at Discharge: Stable Plan - Discharge Summary New Discharge Prescriptions: New Nicotine 14Mg/24Hr Patch [Habitrol] 1 patch TRANSDERM DAILY 30 Days patch Paliperidone [Invega] 3 mg PO BID 30 Days tab.er.24 Discontinued Nicotine 7Mg/24Hr Patch [Habitrol] 1 patch TRANSDERM DAILY #28 patch QUEtiapine [SEROquel] 100 mg PO HS #30 tab Discharge Medication List Nicotine 14Mg/24Hr Patch [Habitrol] 1 patch TRANSDERM DAILY 30 Days patch 08/04/20 [Rx] Paliperidone [Invega] 3 mg PO BID 30 Days tab.er.24 08/04/20 [Rx] Follow up Appointment(s)/Referral(s): None,Stated [Primary Care Provider] - 1-2 days Patient Instructions/Handouts: Depression (DC), Panic Attack (GEN), Psychotic Disorder (DC) Activity/Diet/Wound Care/Special Instructions: Activity and diet as tolerated. Avoid the use of street drugs and alcohol. Take all medications as prescribed. When you are in need of refills on your medicatio ns please contact your medical provider and/or outpatient psychiatrist to have this done. Please go to scheduled outpatient appointment for aftercare treatment. If symptoms return or become worse, call the crisis line at and/or go to the nearest emergency room for evaluation. Discharge Disposition: HOME SELF-CARE
== END 2020-08-04 12:54 | disposition home or self-care (01) | DRG 885 ==
LOC: EC 06:11 → 3MHU 15:04
PROVIDERS: ADMIT Psychiatry & Neurology Psychiatry; ATTEND Psychiatry & Neurology Psychiatry
DX: F25.1 Schizoaffective disorder, depressive type (principal); N17.9 Acute kidney failure, unspecified; D72.829 Elevated white blood cell count, unspecified; E86.0 Dehydration; F12.159 Cannabis abuse with psychotic disorder, unspecified; F41.0 Panic disorder [episodic paroxysmal anxiety]; Z91.19 Patient's noncompliance with other medical treatment and regimen; Z91.83 Wandering in diseases classified elsewhere; T43.96XA Underdosing of unspecified psychotropic drug, initial encounter; Z91.128 Patient's intentional underdosing of medication regimen for other reason; Z60.2 Problems related to living alone; F90.9 Attention-deficit hyperactivity disorder, unspecified type; F17.210 Nicotine dependence, cigarettes, uncomplicated
CPT/HCPCS: 36415; 71045; 80048; 80053; 80061; 80306; 80320; 80329; 81001; 82550; 83036; 83520; 84443; 85025; 96360; 96372; 99285

== ENCOUNTER 2020-11-16 19:49 | Inpatient (IN) | payer MEDICAID, OTHER ==
[2020-11-16] MEDS ORDERED: ZIPRASIDONE 20 MG VIAL IM STA (20:19)
--- NOTE | 2020-11-16 21:43 | ED ---
Psych HPI - General Chief Complaint: Psychiatric Symptoms Stated Complaint: mental health Time Seen by Provider: 11/16/20 19:55 Source: police, EMS Mode of arrival: EMS - History of Present Illness Initial Comments: Patient is a 30-year-old male with past history of schizophreniform disorder, major depression who presents to the emergency department for abnormal behavior. The patient lives with his brother. Brother called stating that the patient has been making threats and acting aggressively towards his family. He has not slept in 3 days. He was hospitalized last year for similar events and was placed on medication. They report the patient has not been taking his invega. He has not received any counseling. The patient admitted to suicidal and homicidal ideations. Reported that he wanted to hurt his brother. Patient denies any drug use. Has tangential thoughts and inability to answer to answer most questioning. The HPI is limited because of this. - Related Data Home Medications Medication Instructions Recorded Confirmed Paliperidone [Invega] 3 mg PO HS 11/16/20 11/16/20 Allergies Allergy/AdvReac Type Severity Reaction Status Date / Time No Known Allergies Allergy Verified 11/17/20 04:32 Review of Systems ROS Statement: Those systems with pertinent positive or pertinent negative responses have been documented in the HPI. ROS Other: All systems not noted in ROS Statement are negative. Past Medical History Past Medical History: No Reported History History of Any Multi-Drug Resistant Organisms: None Reported Past Surgical History: Orthopedic Surgery Additional Past Surgical History / Comment(s): right arm, Past Psychological History: ADD/ADHD, Anxiety, Depression Past Alcohol Use History: None Reported Past Drug Use History: Marijuana General Exam Limitations: altered mental status General appearance: anxious, other (agitated. Unable to redirect) Eye exam: Present: normal appearance, PERRL, EOMI. Absent: scleral icterus, conjunctival injection, periorbital swelling Respiratory exam: Present: normal lung sounds bilaterally Cardiovascular Exam: Present: normal rhythm, tachycardia Neurological exam: Present: alert Psychiatric exam: Present: agitated, anxious, manic Course Vital Signs 11/16/20 19:57 Temperature 98.4 F Pulse Rate 117 H Respiratory 20 Rate Blood Pressure 161/88 O2 Sat by Pulse 99 Oximetry Medical Decision Making - Medical Decision Making Upon arrival the patient is placed into room 14. A thorough history is obtained from police officers who petition the patient. Physical exam is performed. I did request a urine sample. 20 mg of Geodon was ordered as the patient is crying and erratic in the room. The patient is able to be calmed. We are currently awaiting urinalysis results and EPS evaluation. EPS recommends admission for the patient. - Lab Data Lab Results 11/16/20 11/16/20 Range/Units 21:24 23:32 Urine Color Yellow Urine Appearance Cloudy (Clear) Urine pH 6.0 (5.0-8.0) Ur Specific [place] 1.029 (1.001-1.035) Urine Protein 2+ H (Negative) Urine Glucose (UA) Trace H (Negative) Urine Ketones 1+ H (Negative) Urine Blood Negative (Negative) Urine Nitrite Negative (Negative) Urine Bilirubin Negative (Negative) Urine Urobilinogen 3.0 (<2.0) mg/dL Ur Leukocyte Esterase Negative (Negative) Urine RBC 1 (0-5) /hpf Urine WBC 7 H (0-5) /hpf Ur Squamous Epith Cells 1 (0-4) /hpf Hyaline Casts 242 H (0-2) /lpf Urine Mucus Many H (None) /hpf Urine Opiates Screen Not Detected (NotDetected) Ur Oxycodone Screen Not Detected (NotDetected) Urine Methadone Screen Not Detected (NotDetected) Ur Propoxyphene Screen Not Detected (NotDetected) Ur Barbiturates Screen Not Detected (NotDetected) U Tricyclic Antidepress Not Detected (NotDetected) Ur Phencyclidine Scrn Not Detected (NotDetected) Ur Amphetamines Screen Not Detected (NotDetected) U Methamphetamines Scrn Not Detected (NotDetected) U Benzodiazepines Scrn Not Detected (NotDetected) Urine Cocaine Screen Not Detected (NotDetected) U Marijuana (THC) Screen Detected H (NotDetected) Coronavirus (PCR) Not Detected (Not Detectd) Disposition Clinical Impression: Acute psychosis Disposition: ADMITTED IP TO THIS HOSP Condition: Stable Is patient prescribed a controlled substance at d/c from ED?: No Decision to Admit Reason: Admit from EC Decision Date: 11/16/20 Decision Time: 23:08
[2020-11-16 21:56] LABS: Amphetamine Screen,Urine Not Detected (NotDetected); Barbiturate Screen,Urine Not Detected (NotDetected); Benzodiazepines Screen,Urine Not Detected (NotDetected); Cocaine Screen,Urine Not Detected (NotDetected); Methadone Screen, Urine Not Detected (NotDetected); Opiate Screen,Urine Not Detected (NotDetected); Oxycodone Screen, Urine Not Detected (NotDetected); Phencyclidine Screen,Urine Not Detected (NotDetected); Tricyclic Antidepressant,Urine Not Detected (NotDetected); Urn Cannabinoid Scrn Detected (NotDetected)
[2020-11-16 22:47] LABS: Appearance,Urine Cloudy (Clear); Bilirubin,Urine Negative (Negative); Blood,Urine Negative (Negative); Color,Urine Yellow; Glucose,Urine (UA) Trace (Negative); Hyaline Casts,Urine 242 /lpf (0-2); Ketones,Urine 1+ (Negative); Leukocyte Esterase,Urine Negative (Negative); Mucus,Urine Many /hpf; Nitrite,Urine Negative (Negative); Protein,Urine 2+ (Negative); RBC,Urine 1 /hpf (0-5); Specific Gravity,Urine 1.029 (1.001-1.035); Squamous Epithelial Cell,Urine 1 /hpf (0-4); WBC,Urine 7 /hpf (0-5)
[2020-11-16] MEDS ORDERED: NICOTINE 21MG/24HR PATCH TRANSDERM STA (23:34)
[2020-11-17] MEDS ORDERED: LORazepam 1 MG TAB PO PRN (02:01)
[2020-11-17] MEDS ORDERED: HALOPERIDOL LACTATE 5 MG/ML 1 ML VIAL IM PRN ×2 (02:07→11:23)
[2020-11-17] MEDS ORDERED: LORazepam 2 MG/ML INJ IM PRN (02:07)
[2020-11-17] MEDS ORDERED: haloperidoL 5 MG TAB PO PRN (02:07)
--- NOTE | 2020-11-17 02:51 | P.CONS ---
History of Present Illness - Reason for Consult Consult date: 11/17/20 - History of Present Illness The patient is a 30-year-old male with a PMH of tobacco abuse, marijuana abuse, depression and schizophrenia who was brought into the emergency room under police custody due to threatening behavior. The patient had reportedly been acting erratically and yelling at his family members. The patient was admitted to the mental health unit where he was seen and evaluated at the bedside. He reported that he was brought in due to his strange behavior where he was yelling in the shower and "talking about my feelings". He denied physical complaints at the time of the interview. Denied chest discomfort, shortness of breath, fever, chills, nausea, vomiting, abdominal pain, diarrhea. Review of Systems Pertinent positives and negatives as discussed in HPI, a complete review of systems was performed and all other systems are negative. Past Medical History Past Medical History: No Reported History History of Any Multi-Drug Resistant Organisms: None Reported Past Surgical History: Orthopedic Surgery Additional Past Surgical History / Comment(s): right arm, Past Psychological History: ADD/ADHD, Anxiety, Depression Past Alcohol Use History: None Reported Past Drug Use History: Marijuana Medications and Allergies Home Medications Medication Instructions Recorded Confirmed Type Paliperidone [Invega] 3 mg PO HS 11/16/20 11/16/20 History Allergies Allergy/AdvReac Type Severity Reaction Status Date / Time No Known Allergies Allergy Verified 11/16/20 20:16 Physical Exam Vitals: Vital Signs Temp Pulse Resp BP Pulse Ox 11/16/20 19:57 98.4 F 117 H 20 161/88 99 Intake and Output 11/16/20 11/16/20 11/17/20 14:59 22:59 06:59 Other: Weight 90.718 kg General: non toxic, no distress, appears at stated age, overweight Derm: no unusual rashes/lesions no unusual ecchymoses, warm, dry Head: atraumatic, normocephalic, symmetric Eyes: EOMI, no lid lag, anicteric sclera, pupils equal round reactive to light ENT: Nose and ears atraumatic, no thrush, no pharyngeal erythema Neck: No thyromegaly, no cervical lymphadenopathy, trachea midline, supple Mouth: no lip lesion, mucus membranes moist Cardiovascular: S1S2 reg, no murmur, positive posterior tibial pulse bilateral, no edema, capillary refill less than 2 seconds Lungs: CTA bilateral, no rhonchi, no rales , no accessory muscle use Abdominal: soft, nontender to palpation, no guarding, no appreciable organomegaly, normal bowel sounds Ext: no gross muscle atrophy, muscle strength 5 out of 5 in all 4 extremities grossly, no contractures, Neuro: CN II-XI grossly intact, light touch intact all 4 extremities, finger to nose within normal limits, Psych: Alert, oriented, guarded affect Results Labs: Abnormal Lab Results - Last 24 Hours (Table) 11/16/20 Range/Units 21:24 Urine Protein 2+ H (Negative) Urine Glucose (UA) Trace H (Negative) Urine Ketones 1+ H (Negative) Urine WBC 7 H (0-5) /hpf Hyaline Casts 242 H (0-2) /lpf Urine Mucus Many H (None) /hpf U Marijuana (THC) Screen Detected H (NotDetected) Assessment and Plan Plan: Tobacco and marijuana abuse -Advised on the importance of cessation Depression with suicidal ideation -As per psychiatry Thank you for allowing us to participate in the care of this patient. We will follow peripherally. Do not hesitate to contact us with questions. Someone can be reached from the [facility] hospitalist group at all hours of the day at [phone].
[2020-11-17] MEDS: NICOTINE 21MG/24HR PATCH TRANSDERM SCH ×2 (08:34→17:51)
--- NOTE | 2020-11-17 11:32 | P.HP ---
Psychiatric H&P - . H&P Date: 11/17/20 History & Physical: Allergies Allergy/AdvReac Type Severity Reaction Status Date / Time No Known Allergies Allergy Verified 11/17/20 04:32 Vital Signs Temp 98.3 F 11/17/20 02:10 Pulse 99 11/17/20 02:10 Resp 16 11/17/20 02:10 BP 132/88 11/17/20 02:10 Pulse Ox 97 11/17/20 02:10 Intake & Output 11/16/20 11/17/20 11/17/20 18:59 06:59 18:59 Weight 85 kg Laboratory Last Values Urine Color Yellow 11/16/20 21:24 Urine Appearance Cloudy (Clear) 11/16/20 21:24 Urine pH 6.0 (5.0-8.0) 11/16/20 21:24 Ur Specific [place] 1.029 (1.001-1.035) 11/16/20 21:24 Urine Protein 2+ (Negative) H 11/16/20 21:24 Urine Glucose (UA) Trace (Negative) H 11/16/20 21:24 Urine Ketones 1+ (Negative) H 11/16/20 21:24 Urine Blood Negative (Negative) 11/16/20 21:24 Urine Nitrite Negative (Negative) 11/16/20 21:24 Urine Bilirubin Negative (Negative) 11/16/20 21:24 Urine Urobilinogen 3.0 mg/dL (<2.0) 11/16/20 21:24 Ur Leukocyte Esterase Negative (Negative) 11/16/20 21:24 Urine RBC 1 /hpf (0-5) 11/16/20 21:24 Urine WBC 7 /hpf (0-5) H 11/16/20 21:24 Ur Squamous Epith Cells 1 /hpf (0-4) 11/16/20 21:24 Hyaline Casts 242 /lpf (0-2) H 11/16/20 21:24 Urine Mucus Many /hpf (None) H 11/16/20 21:24 Urine Opiates Screen Not Detected (NotDetected) 11/16/20 21:24 Ur Oxycodone Screen Not Detected (NotDetected) 11/16/20 21:24 Urine Methadone Screen Not Detected (NotDetected) 11/16/20 21:24 Ur Propoxyphene Screen Not Detected (NotDetected) 11/16/20 21:24 Ur Barbiturates Screen Not Detected (NotDetected) 11/16/20 21:24 U Tricyclic Antidepress Not Detected (NotDetected) 11/16/20 21:24 Ur Phencyclidine Scrn Not Detected (NotDetected) 11/16/20 21:24 Ur Amphetamines Screen Not Detected (NotDetected) 11/16/20 21:24 U Methamphetamines Scrn Not Detected (NotDetected) 11/16/20 21:24 U Benzodiazepines Scrn Not Detected (NotDetected) 11/16/20 21:24 Urine Cocaine Screen Not Detected (NotDetected) 11/16/20 21:24 U Marijuana (THC) Screen Detected (NotDetected) H 11/16/20 21:24 Coronavirus (PCR) Not Detected (Not Detectd) 11/16/20 23:32 11/17/20 11:08 IDENTIFYING DATA: Patient is a 30-year-old male with significant history of schizoaffective disorder and cannabis use who currently lives with his brother. HPI: Patient presented to the hospital yesterday with complaints of "abnormal behavior". According to petition which was completed by a precinct police captain who stated that patient had been "yelling about [place] then about Satan no idea what is happening around him. He thinks everyone is going to hurt him. Said he was going to kill his brother or himself and police". According to ER report patient brother claims that he has been making threats and acting aggressively in the house. ER report also stated that patient had been having poor sleep for the past 3 days and has been noncompliant with his medications. Patient also endorsed suicidal and homicidal ideations in the ER according to report and patient was given a Geodon IM injection for aggression. His UDS was positive for marijuana. Patient was seen wandering the hallways today and agreeable to speak to mortgage loan underwriter. He appeared to be responding to internal stimuli and staring around the room and was slow to respond. He was fairly guarded/evasive and argumentative with mortgage loan underwriter. He states that he has not been taking his medications and listed off several side effects that he was getting including "sexual side effects and abdominal pain". He adamantly refused to be put back on antipsychotic medications of any sort. He states that his sleep is "on and off". He claims that his brother was "concerned about me" which is why he called the police however when asked more about why he would be concern patient states that "I don't know". He was a poor historian and had poor insight and judgment and poor impulse control. He had poor hygiene and grooming appeared to be disheveled. He states that his mood is "okay" and affect was constricted. He denied any anxiety today. He denies any significant alcohol use. He denies any illicit drug use. He endorses daily marijuana use. He claims that he smokes cigarettes daily. PAST PSYCHIATRIC HISTORY: Patient states that he has had 3 prior psychiatric admissions to this mental health unit and his last psychiatric hospitalization was in 06/2020. He has had previous trials of Seroquel, Adderall, and Risperdal and paliperidone in the past. Patient has a history of schizoaffective disorder. He claims that he is apparently following up at [facility] however does not know who his psychiatrist is. She denies any prior attempts at suicide. Patient is currently on an active treatment order until 01/25/2021 PMH:denies ALLERGIES: as per EMR CHEMICAL DEPENDENCY HISTORY: as per HPI FAMILY PSYCHIATRIC/SUBSTANCE USE HISTORY: He is unaware of any previous family history of psychiatric pathology or substance use. SOCIAL HISTORY: Patient was born and raised in [place]. He lives with his brother Kiel in an apartment. He attended a semester of college. He reports breaking up with his girlfriend 7 months ago after being with her for 10 years. no alf or alf in the past. MENTAL STATUS EXAM: General Appearance: Patient appears to be overweight, older than stated age is alert, uncooperative, guarded/evasive. Responding to internal stimuli. Patient appears to have poor hygiene and grooming. Long hair and disheveled. Behavior: Patient is seated without any agitated behavior. Psychomotor activity appears normal. Speech: Patient's speech is fluent and nonpressured. Irritable tone and argumentative. Mood/Affect: Patient reports their mood is "fine", affect is congruent and constricted. Suicidality/Homicidality: Patient denies having any homicidal ideation intent or plan. Denies any suicidal ideations intent or plan Perceptions: Patient denies any visual hallucinations but endorses auditory hallucinations. Responding to internal stimuli. Though content/process: Poor insight and judgment, minimizing his symptoms. Guarded/evasive. Illogical at times. Memory and concentration: AOX3, grossly intact for the purposes of this session Judgment and insight: poor/impulsive STRENGTHS/WEAKNESSES: Strength is that patient is resilient. Weakness is that patient has poor judgment and limited insight. INTELLECT: average IMPRESSIONS: Schizoaffective disorder, depressive type PLAN: -Patient is admitted under involuntary status to MHU for stabilization of psychiatric symptoms and safety. Patient has not signed medication consent and is placed in patient's chart. Patient is currently on an active treatment order until 01/25/2021. -Medications : Will start patient on Abilify 2.5 mg daily for mood stabilization/psychosis. Haldol IM if patient refuses by mouth. melatonin 6mg hs for insomnia -Ativan and Haldol PRN for agitation/aggression -Patient was counselled on substance abuse and claims that he does not want to cut back on his use. -Patient was informed of the risks, benefits and side effects of the medication -Internal Medicine consult to perform medical evaluation and physical. -NRT - nicotine patch -SW on board for discharge planning. Encourage patient to participate in groups to work on coping skills. Patient is currently on an active treatment order until 01/25/2021 which has been confirmed with the courts. 11/17/20 11:32
[2020-11-17] MEDS: ARIPiprazole 5 MG TAB PO SCH (13:26)
[2020-11-17 15:07] VITALS: BMI 27.6
[2020-11-17] MEDS ORDERED: PALIPERIDONE 3 MG TAB.ER.24 PO SCH (21:00)
[2020-11-17] MEDS: MELATONIN 3 MG TABLET PO SCH (22:21)
[2020-11-18] MEDS: NICOTINE 21MG/24HR PATCH TRANSDERM SCH (08:41)
[2020-11-18] MEDS: ARIPiprazole 5 MG TAB PO SCH (08:41)
--- NOTE | 2020-11-18 10:40 | P.PN ---
Progress Note - Text Progress Note Date: 11/18/20 Interval History: Patient was seen initially in his room sitting on the floor in the middle of the room and speaking to himself. Patient was initially reluctant to speak with policy writer typist however eventually agreed to speak with him in the office. Patient continues to be appearing to respond to internal stimuli and gazing around the room. He didn't bring his to be fairly argumentative about his medications and his treatment. He states that "I don't want to go up on the medications". He did claim that he is feeling no change at all in his symptoms on the medications and states that "it's not really working". He was fairly superficial about his symptoms today and denied any changes in his mood or anxiety. He continues to act bizarre and labile at times. He states that he was able to sleep throughout the night fairly. He denied going to any groups. At this time patient denies any suicidal or homical ideations, intent or plan. Patient denies any auditory, visual hallucinations. Patient denies any side effects from the medications and has been compliant with meds. Mental Status Exam: General Appearance: Patient appears to be overweight, older than stated age is alert, uncooperative, guarded/evasive. Responding to internal stimuli. Patient appears to have poor hygiene and grooming. Long hair and disheveled. Behavior: Patient is seated without any agitated behavior. Psychomotor activity appears normal. Speech: Patient's speech is fluent and nonpressured. Irritable tone and argumentative. Mood/Affect: Patient reports their mood is "ok", affect is congruent and constricted. Suicidality/Homicidality: Patient denies having any homicidal ideation intent or plan. Denies any suicidal ideations intent or plan Perceptions: Patient denies any visual hallucinations but endorses auditory hallucinations. Responding to internal stimuli. Though content/process: Poor insight and judgment, minimizing his symptoms. Guarded/evasive. Memory and concentration: AOX3, grossly intact for the purposes of this session Judgment and insight: poor/impulsive, improving mildly Assessment Schizoaffective disorder, depressive type Cannabis use disorder Nicotine dependence Plan: -Patient continues to meet criteria for inpatient psychiatric admission for symptom stabilization and safety. Patient has not signed adult voluntary form and was placed in patient's chart. -Medications: Increased Abilify to 5 mg daily for mood stabilization/psychosis. Haldol IM if patient refuses by mouth. Melatonin 6 mg daily at bedtime for insomnia. -When necessary Ativan and Haldol for agitation/aggression. -NRT - nicotine patch -SW on board for discharge planning. Encouraged the patient to participate in milieu. Patient is currently on an active treatment order until 01/25/2021 which has been confirmed with the courts.
[2020-11-18] MEDS: MELATONIN 3 MG TABLET PO SCH ×2 (21:39→21:43)
[2020-11-19] MEDS: ARIPiprazole 5 MG TAB PO SCH ×2 (08:01→10:21)
[2020-11-19] MEDS: NICOTINE 21MG/24HR PATCH TRANSDERM SCH (08:01)
--- NOTE | 2020-11-19 11:20 | P.PN ---
Progress Note - Text Progress Note Date: 11/19/20 Interval History: Patient was seen initially wandering the hallways this morning and was agreeable to speak to service writer advisor in the office. Patient continues to be reluctant to speak to service writer advisor and went to his room briefly to gather papers that he wanted to show service writer advisor. He pointed out in his papers that he received a comment that mentioned that he was suicidal in the ER and also that he made threats towards his brother. He claims that he adamantly did not make those claims and states that "this is false". He continues to be argumentative with service writer advisor about his medications and his treatment and asked several questions about his court order and when he can be discharged. He states that his mood is "fine" however patient has a constricted affect and continues to be irritable. He was fairly superficial about his symptoms today and denied any changes in his mood or anxiety. He continues to act bizarre and labile at times. He states that he was able to sleep throughout the night fairly. He denied going to any groups. At this time patient denies any suicidal or homical ideations, intent or plan. Patient denies any auditory, visual hallucinations. Patient denies any side effects from the medications and has been compliant with meds. Mental Status Exam: General Appearance: Patient appears to be overweight, older than stated age is alert, uncooperative, argumentative. Patient appears to have poor hygiene and grooming. Long hair and disheveled. Behavior: Patient is seated without any agitated behavior. Psychomotor activity appears normal. Speech: Patient's speech is fluent and nonpressured. argumentative. Mood/Affect: Patient reports their mood is "fine", affect is congruent Suicidality/Homicidality: Patient denies having any homicidal ideation intent or plan. Denies any suicidal ideations intent or plan Perceptions: Patient denies any visual hallucinations but endorses auditory hallucinations. Though content/process: Poor insight and judgment, minimizing his symptoms. Guarded/evasive. Argumentative. Minimizing his symptoms and need for treatment. Memory and concentration: AOX3, grossly intact for the purposes of this session Judgment and insight: poor/impulsive, improving mildly Assessment Schizoaffective disorder, depressive type Cannabis use disorder Nicotine dependence Plan: -Patient continues to meet criteria for inpatient psychiatric admission for symptom stabilization and safety. Patient has not signed adult voluntary form and was placed in patient's chart. -Medications: continue with Abilify to 5 mg daily for mood stabilization/psychosis and will increase tomorrow. patient will likely need a long acting shot prior to d/c due to patients poor medication compliance. Haldol IM if patient refuses by mouth. Melatonin 6 mg daily at bedtime for insomnia. -When necessary Ativan and Haldol for agitation/aggression. -NRT - nicotine patch -SW on board for discharge planning. Encouraged the patient to participate in milieu. Patient is currently on an active treatment order until 01/25/2021 which has been confirmed with the courts.
[2020-11-19] MEDS: NICOTINE 7MG/24HR PATCH TRANSDERM SCH (17:27)
[2020-11-19] MEDS: MELATONIN 3 MG TABLET PO SCH (21:08)
[2020-11-20] MEDS: ACETAMINOPHEN TAB 325 MG TAB PO PRN ×2 (03:07→07:21)
[2020-11-20] MEDS: NICOTINE 7MG/24HR PATCH TRANSDERM SCH (09:13)
[2020-11-20] MEDS: ARIPiprazole 5 MG TAB PO SCH (09:16)
[2020-11-20] MEDS ORDERED: flUPHENAZine 2.5 MG/ML (MDV) 10 ML VIAL IM PRN (10:32)
--- NOTE | 2020-11-20 10:39 | P.PN ---
Progress Note - Text Progress Note Date: 11/20/20 Interval History: Patient was seen in his room this morning and was agreeable to speak to television script writer in the office. Patient continues to be reluctant to speak to television script writer and remains argumentative and uncooperative with television script writer. He continues to downplay his symptoms and states that "I don't need medications this is stupid". He continues to have very poor insight into his condition and appears to have poor hygiene and grooming. He states that he does not feel he needs to go to groups as he finds them boring. He claims that his mood is "fine" however as a constricted and incongruent affect. He claims that he tried to speak with his brother over the phone couple of days ago however was guarded about that conversation. He claims that he does not want to be on the Abilify any longer because he feels that "it's beating me up inside" and referred to various side effects which were fairly vague. Patient claims that he is agreeable to try Prolixin going forward however was fairly reluctant to the idea. He was fairly superficial about his symptoms today and denied any changes in his mood or anxiety. He continues to act bizarre and labile at times. He states that he was able to sleep throughout the night fairly. At this time patient denies any suicidal or homical ideations, intent or plan. Patient denies any auditory, visual hallucinations. Patient denies any side effects from the medications and has been compliant with meds. Mental Status Exam: General Appearance: Patient appears to be overweight, older than stated age is alert, uncooperative, argumentative. Patient appears to have poor hygiene and grooming. Long hair and disheveled. Behavior: Patient is seated without any agitated behavior. Psychomotor activity appears normal. Speech: Patient's speech is fluent and nonpressured. argumentative. Mood/Affect: Patient reports their mood is "ok", affect is incongruent Suicidality/Homicidality: Patient denies having any homicidal ideation intent or plan. Denies any suicidal ideations intent or plan Perceptions: Patient denies any visual hallucinations but endorses auditory hallucinations. Though content/process: Poor insight and judgment, minimizing his symptoms. Guarded/evasive. Argumentative. Minimizing his symptoms and need for treatment. Memory and concentration: AOX3, grossly intact for the purposes of this session Judgment and insight: poor/impulsive Assessment Schizoaffective disorder, depressive type Cannabis use disorder Nicotine dependence Plan: -Patient continues to meet criteria for inpatient psychiatric admission for symptom stabilization and safety. Patient has not signed adult voluntary form and was placed in patient's chart. -Medications: Patient request due to side effects and possible akathisia that he wants to be switched off of Abilify and is agreeable to take Prolixin today. We'll start with 2 mg twice a day by mouth of Prolixin with IM option if patient is refusing. This dose can be increased to 3 mg twice a day on Monday if patient is tolerating it well. patient will likely need a long acting shot prior to d/c due to patients poor medication compliance. Increased Melatonin 10 mg daily at bedtime for insomnia. -When necessary Ativan and Haldol for agitation/aggression. -NRT - nicotine patch -SW on board for discharge planning. Encouraged the patient to participate in milieu. Patient is currently on an active treatment order until 01/25/2021 which has been confirmed with the courts.
[2020-11-20] MEDS: MAG HYDROX/AL HYDROX/SIMETH 30 ML CUP PO PRN (10:59)
[2020-11-20] MEDS: MELATONIN 5 MG TABLET PO SCH (20:26)
[2020-11-21] MEDS: ACETAMINOPHEN TAB 325 MG TAB PO PRN (06:48)
[2020-11-21] MEDS: NICOTINE 7MG/24HR PATCH TRANSDERM SCH (09:06)
[2020-11-21] MEDS: MAG HYDROX/AL HYDROX/SIMETH 30 ML CUP PO PRN (13:55)
--- NOTE | 2020-11-21 16:12 | PN ---
DATE OF SERVICE: 11/21/2020 PROGRESS NOTE CHIEF COMPLAINT: The patient was agitated, delusional and was making statements to kill himself and others. INTERVAL HISTORY: The patient has been doing fair. He had a quiet day yesterday. He comes out in the day area. He will wander about. He does interact a little with others, though mostly he has a quiet manner. He did not attend groups yesterday. He was switched from Abilify to Prolixin. He slept fair last night. Today he has been up. He says that his choice is to not attend groups, though he was somewhat vague about what would be wrong with going to the groups. He feels that the medicine is "doing what is supposed to do." He was vague about particulars on that, though said he was taking the medication and did not have any specific concerns related to it. For the most part he did not voice any significant complaints or concerns. He appears to tolerate his psychotropic medications. MENTAL STATUS: Patient sat without restlessness. Eye contact was fair. Psychomotor activity was somewhat slowed. He spoke in a soft, at times almost airy voice. He answered questions appropriately. His thoughts were clear, though he did not say much. His affect was blunted. His mood was reserved though not clearly down or depressed. He did not appear to be significantly distressed. He does continue to show signs of thought disorder including self talk. He voiced no thoughts of harm. Cognition was clear. ASSESSMENT: I will continue the current diagnosis and treatment plan. We will continue to make efforts to engage the patient in individual and group therapeutic activities. He will continue Prolixin 2 mg twice a day. I reviewed indication for the medications, potential side effects and concerns related to metabolic and movement disorder issues. I briefly discussed discharge planning issues though the patient did not seem to engage in that discussion. We will focus on stabilization and discharge planning. MMODL / IJN: [id number] / MTDD
[2020-11-21] MEDS ORDERED: NICOTINE 14MG/24HR PATCH TRANSDERM STA (19:58)
[2020-11-21] MEDS: MELATONIN 5 MG TABLET PO SCH (20:00)
[2020-11-22] MEDS: ACETAMINOPHEN TAB 325 MG TAB PO PRN (04:50)
[2020-11-22] MEDS: NICOTINE 14MG/24HR PATCH TRANSDERM SCH (08:22)
[2020-11-22] MEDS: MAG HYDROX/AL HYDROX/SIMETH 30 ML CUP PO PRN ×3 (10:34→20:25)
--- NOTE | 2020-11-22 11:27 | PN ---
PROGRESS NOTE DATE OF SERVICE: 11/22/2020 CHIEF COMPLAINT: The patient was agitated, delusional and was making statements to kill himself and others. INTERVAL HISTORY: The patient has been doing fair. He had a quiet day yesterday, comes out in the day area. He tends to keep to himself. He will wander about. He seems comfortable in the milieu, though he does not interact too much with others. He slept well last night. Today he has been up. He has been doing about the same. He does not attend groups. He has no complaints relating to his medications. The only complaint he had today is that he wants to stop his nicotine patch as he does not feel that he needs it anymore. He says that his mood is good and his thoughts are clear. He denies any issues of hallucinations. He tolerates his psychotropic medications. He has been cooperative with care. MENTAL STATUS EXAM: Patient gave fairly good eye contact. Psychomotor activity was slowed. Speech was monotone. He answered questions with brief responses. He did not say a lot. His thoughts were clear and coherent. His affect was blunted. His mood reserved. He had a quiet calm manner. He did not appear to be distressed in any way. It was difficult to assess for thought disorder, though the patient himself minimizes any problems in this regard. He voiced no thoughts of harm. Cognition was clear. ASSESSMENT: I will continue the current diagnosis and treatment plan. The patient has been doing fairly well and has been cooperative with care. Whether or not he is getting significant improvement in regard to thought disorder issues remains to be seen. He is on a relatively low dose of Prolixin at this point, given the reluctance he has had about medication issues. I will not make any changes at this time though there might be consideration for titrating up further on Prolixin into a more therapeutic range. I had talked with the patient about the potential for long-acting injectable though he was clear about the idea that he only wanted oral medications. We will focus on stabilization and discharge planning. CASEY / BETH: [id number] /
[2020-11-22] MEDS: MELATONIN 5 MG TABLET PO SCH (20:02)
[2020-11-23] MEDS: NICOTINE 14MG/24HR PATCH TRANSDERM SCH (09:06)
--- NOTE | 2020-11-23 12:20 | P.PN ---
Progress Note - Text Progress Note Date: 11/23/20 Interval History: Patient was seen playing cards with another patient this morning and was agree able to speak to policy writer sales in the office. patient appeared to be more directable and cooperative with policy writer sales during conversation. He claims that he feels the Prolixin has been helping him significantly in terms of his mood stability and also his thought process. He continues to have very poor insight into his condition Anabell continues to downplay most of his symptoms. He brought up once again the fact that he did not threaten his brother which was described on the initial petition from the ER. e appears to have mild improvement in his hygiene and grooming. he claims that he is trying to make more of an effort to go to groups. He claims that his mood is "fine" however as a constricted and incongruent affect. he was fairly concerned about his appetite today and states that because he stopped taking all nicotine products that he feels his appetite has increased and is asking about different snacks. He asked several questions about his medications and due to his noncompliance patient will be switched on to Prolixin D long-acting injection. He states that he was able to sleep throughout the night fairly. At this time patient denies any suicidal or homical ideations, intent or plan. Patient denies any auditory, visual hallucinations. Patient denies any side effects from the medications and has been compliant with meds. Mental Status Exam: General Appearance: Patient appears to be overweight, older than stated age is alert, more cooperative today and more directable. Patient appears to have improving hygiene and grooming. Long hair Behavior: Patient is seated without any agitated behavior. Psychomotor activity appears normal. Speech: Patient's speech is fluent and nonpressured. argumentative at times however more cooperative today. Mood/Affect: Patient reports their mood is "better", affect is congruent an constricted Suicidality/Homicidality: Patient denies having any homicidal ideation intent or plan. Denies any suicidal ideations intent or plan Perceptions: Patient denies any visual hallucinations but endorses auditory hallucinations. Though content/process: Poor insight and judgment, minimizing his symptoms. rgumentative at times, improving mildly. Minimizing his symptoms and need for treatment.more logical today. Memory and concentration: AOX3, grossly intact for the purposes of this session Judgment and insight: poor/impulsive, improving mildly. Assessment Schizoaffective disorder, depressive type Cannabis use disorder Nicotine dependence Plan: -Patient continues to meet criteria for inpatient psychiatric admission for symptom stabilization and safety. Patient has not signed adult voluntary form and was placed in patient's chart. -Medications: Increased Prolixin PO to 2.5 mg twice a day by mouth with IM option if patient is refusing. Ordered Prolixin D BRENNAN today to ensure compliance, 25mg dose. continue with Melatonin 10 mg daily at bedtime for insomnia. -When necessary Ativan and Haldol for agitation/aggression. -NRT - nicotine patch -SW on board for discharge planning. Encouraged the patient to participate in milieu. Patient is currently on an active treatment order until 01/25/2021 which has been confirmed with the courts.
[2020-11-23] MEDS ORDERED: fluPHENAZine DECANOATE 25 MG/ML 5ML MDV IM ONE (13:00)
[2020-11-23] MEDS: MAG HYDROX/AL HYDROX/SIMETH 30 ML CUP PO PRN (16:16)
[2020-11-23] MEDS: MELATONIN 5 MG TABLET PO SCH (20:33)
[2020-11-24 06:45] VITALS: RESP 16
--- NOTE | 2020-11-24 10:59 | P.PN ---
Progress Note - Text Progress Note Date: 11/24/20 Interval History: Patient was seen lying in his bed this morning and was agreeable to speak to cheryl cerrato in the office. patient appeared to be more directable and cooperative with grant writer during conversation. He continues to state that he is feeling better on Prolixin and claims that it is making him feel "more positive". He states that he wants to continue on with the positivity and remove himself from the living situation that he is in with his brother currently. He states that he is living in a very small room and that he feels he does not know what to do and he feels it is a "toxic environment". He states that he feels he needs the medications to help him and is willing to comply more. He also spoke about potentially getting his own place down the road from now. Patient's insight has been gradually improving. He states that his mood has been improving and denies any anxiety today. Patient claims that he tolerated the injection well yesterday with no complaints. He states that he was able to sleep throughout the night fairly. At this time patient denies any suicidal or homical ideations, intent or plan. Patient denies any auditory, visual hallucinations. Patient denies any side effects from the medications and has been compliant with meds. Mental Status Exam: General Appearance: Patient appears to be overweight, older than stated age is alert, more cooperative today and more directable. Patient appears to have improving hygiene and grooming. Long hair Behavior: Patient is seated without any agitated behavior. Psychomotor activity appears normal. Speech: Patient's speech is fluent and nonpressured. more cooperative today. Mood/Affect: Patient reports their mood is "better", affect is congruent Suicidality/Homicidality: Patient denies having any homicidal ideation intent or plan. Denies any suicidal ideations intent or plan Perceptions: Patient denies any visual hallucinations but endorses auditory hallucinations. Though content/process: Improving insight and judgment, minimizing his symptoms. more logical today. No paranoia. Memory and concentration: AOX3, grossly intact for the purposes of this session Judgment and insight: poor/impulsive, improving mildly Assessment Schizoaffective disorder, depressive type Cannabis use disorder Nicotine dependence Plan: -Patient continues to meet criteria for inpatient psychiatric admission for symptom stabilization and safety. Patient has not signed adult voluntary form and was placed in patient's chart. -Medications: Decreased Prolixin PO to 2 mg twice a day by mouth with IM option if patient is refusing. Patient received Prolixin D 25mg dose on 11/23/2020 and will be due for his next 25 mg dose on 12/07/2020. continue with Melatonin 10 mg daily at bedtime for insomnia. -When necessary Ativan and Haldol for agitation/aggression. -NRT - nicotine patch -SW on board for discharge planning. Encouraged the patient to participate in milieu. Patient is currently on an active treatment order until 01/25/2021 which has been confirmed with the courts. Patient claims that he would like to be d ischarged to his uncle's house. production line worker to contact uncle and prepare for discharge tomorrow.
[2020-11-24] MEDS: MAG HYDROX/AL HYDROX/SIMETH 30 ML CUP PO PRN (12:41)
[2020-11-24] MEDS: MELATONIN 5 MG TABLET PO SCH (20:33)
[2020-11-25 07:15] VITALS: BP 134/79; PULSE 130; TEMP 97.5
--- NOTE | 2020-11-25 09:16 | P.DS ---
Providers Date of admission: 11/17/20 01:41 Expected date of discharge: 11/25/20 Attending physician: Jose G Son MD Consults: 11/17/20 02:01 Consult Physician Routine Consulting Provider: Kit Rutledge Consult Reason/Comments: H&P for mental health admission Do you want consulting provider notified?: Yes Primary care physician: Stated None - Discharge Diagnosis(es) (1) Schizoaffective disorder, depressive type Current Visit: Yes Status: Acute Priority: High (2) Cannabis use disorder, mild, abuse Current Visit: Yes Status: Acute Priority: Medium (3) Nicotine dependence Current Visit: Yes Status: Acute Priority: Low Hospital Course: Admission HPI: Admission not was completed by [writer editor] "Patient is a 30-year-old male with significant history of schizoaffective disorder and cannabis use who currently lives with his brother. Patient presented to the hospital yesterday with complaints of "abnormal behavior". According to petition which was completed by a master police detective who stated that patient had been "yelling about [place] then about Satan no idea what is happening around him. He thinks everyone is going to hurt him. Said he was going to kill his brother or himself and police". According to ER report patient brother claims that he has been making threats and acting aggressively in the house. ER report also stated that patient had been having poor sleep for the past 3 days and has been noncompliant with his medications. Patient also endorsed suicidal and homicidal ideations in the ER according to report and patient was given a Geodon IM injection for aggression. His UDS was positive for marijuana. Patient was seen wandering the hallways today and agreeable to speak to writer editor. He appeared to be responding to internal stimuli and staring around the room and was slow to respond. He was fairly guarded/evasive and argumentative with writer editor. He states that he has not been taking his medications and listed off several side effects that he was getting including "sexual side effects and abdominal pain". He adamantly refused to be put back on antipsychotic medications of any sort. He states that his sleep is "on and off". He claims that his brother was "concerned about me" which is why he called the police however when asked more about why he would be concern patient states that "I don't know". He was a poor historian and had poor insight and judgment and poor impulse control. He had poor hygiene and grooming appeared to be disheveled. He states that his mood is "okay" and affect was constricted. He denied any anxiety today. He denies any significant alcohol use. He denies any illicit drug use. He endorses daily marijuana use. He claims that he smokes cigarettes daily." Hospital course: Upon admission to the unit patient was initially agitated, bizarre and irritable. Patient was however already on an active treatment in order until 01/25/2021. Patient initially was isolative however with treatment and eventually got along well with other patients on the unit and followed unit protocol. Patient was started on abilify however complained of increase in agitation and akathisia therefore it was discontinued. Patient was started on Prolixin by mouth 2.5 mg twice a day for psychosis/mood stabilization and did fairly well and patient was transitioned onto Prolixin D and given a 25 mg IM dose on 11/23/2020. patient will be due for his next 25 mg dose on 12/07/20. Patient was also taking melatonin 10 mg daily at bedtime for insomnia. Patient spoke of his stressors and engaged in therapy both group and individual. Patient was also seen by medical team for history and physical exam. Throughout the course of the hospitalization patient gradually improved with regards to mood, anxiety, psychosis/agitation, sleep and became more future oriented with improved insight and judgment. On the day of discharge patient denied any suicidal or homicidal ideations intent or plan denied any auditory or visual hallucinations. Patient endorsed wanting to live for his future and his family. The patient denied any access to guns or weapons. Patient denied any paranoia and did not endorse any delusions. Patient does have a significant history of substance abuse and was counseled on abstaining from all substances including alcohol and marijuana. Patient was offered however declined inpatient substance-abuse rehab. Patient was also counseled on the medications and need for regular compliance and was encouraged to follow-up with their outpatient appointment for mental health and also for primary care. Prior to discharge a family meeting will be arranged by social studies department chair to answer any questions and ensure safety upon discharge. Mental status exam: General Appearance: Patient appears to be overweight, stated age is alert, pleasant, and cooperative. Patient is in no acute distress and has improved hygiene and grooming Behavior: Patient is calmly seated without any agitated behavior. cooperative Speech: Patient's speech is fluent and nonpressured. Mood/Affect: Patient reports their mood is "better", affect is congruent and euthymic. Suicidality/Homicidality: Patient denies having any suicidal or homicidal ideation intent or plan. Perceptions: Patient denies any auditory or visual hallucinations. Though content/process: There is no evidence of any delusional thought content and thought process is linear and goal-directed. more future oriented Memory and concentration: AOX3, grossly intact for the purposes of this session. Can spell "WORLD" backwards correctly. Judgment and insight: chronically poor, however has improved with guarded prognosis Impression: Schizoaffective disorder, depressive type Cannabis use disorder Nicotine dependence Plan: -Continue with discharge today as patient has improved and stabilized psychiatrically and is not currently an imminent threat to himself and/or others. Patient will remain at chronically elevated risk for harm to self and/or others due to his impulsivity and chronically poor insight/judgment -Continue medications: Patient was transitioned onto Prolixin D 25 mg every 14 days. Initial dose was given on 11/23/2020 and patient will be due for his next long-acting injection on 12/07/2020. Patient will be taking by mouth Prolixin 2 mg daily at bedtime for 5 more days and then to be discontinued. Continue with melatonin 10 mg daily at bedtime for insomnia. -Patient was counseled on the need for medication compliance and appropriate follow-up at mental health and also primary care for medical issues. Patient verbalized understanding and agreed. -Social work to arrange for and conduct family meeting to ensure safety upon discharge and answer any questions/concerns. Social work also to arrange for patients follow up appointments with [facility] for psychiatric care along with follow up with primary care provider. -Patient counseled on abstaining from recreational drugs and marijuana and alcohol. Was informed/educated on the adverse effects on their physical and mental health. Patient verbally agreed and understood -Patient was instructed to return to the hospital or seek immediate medical care if their psychiatric or medical symptoms do worsen or reoccur. Allergies Allergy/AdvReac Type Severity Reaction Status Date / Time No Known Allergies Allergy Verified 11/17/20 04:32 Laboratory Results Urine Color Yellow 11/16/20 21:24 Urine Appearance Cloudy (Clear) 11/16/20 21:24 Urine pH 6.0 (5.0-8.0) 11/16/20 21:24 Ur Specific [place] 1.029 (1.001-1.035) 11/16/20 21:24 Urine Protein 2+ (Negative) H 11/16/20 21:24 Urine Glucose (UA) Trace (Negative) H 11/16/20 21:24 Urine Ketones 1+ (Negative) H 11/16/20 21:24 Urine Blood Negative (Negative) 11/16/20 21:24 Urine Nitrite Negative (Negative) 11/16/20 21:24 Urine Bilirubin Negative (Negative) 11/16/20 21:24 Urine Urobilinogen 3.0 mg/dL (<2.0) 11/16/20 21:24 Ur Leukocyte Esterase Negative (Negative) 11/16/20 21:24 Urine RBC 1 /hpf (0-5) 11/16/20 21:24 Urine WBC 7 /hpf (0-5) H 11/16/20 21:24 Ur Squamous Epith Cells 1 /hpf (0-4) 11/16/20 21:24 Hyaline Casts 242 /lpf (0-2) H 11/16/20 21:24 Urine Mucus Many /hpf (None) H 11/16/20 21:24 Urine Opiates Screen Not Detected (NotDetected) 11/16/20 21:24 Ur Oxycodone Screen Not Detected (NotDetected) 11/16/20 21:24 Urine Methadone Screen Not Detected (NotDetected) 11/16/20 21:24 Ur Propoxyphene Screen Not Detected (NotDetected) 11/16/20 21:24 Ur Barbiturates Screen Not Detected (NotDetected) 11/16/20 21:24 U Tricyclic Antidepress Not Detected (NotDetected) 11/16/20 21:24 Ur Phencyclidine Scrn Not Detected (NotDetected) 11/16/20 21:24 Ur Amphetamines Screen Not Detected (NotDetected) 11/16/20 21:24 U Methamphetamines Scrn Not Detected (NotDetected) 11/16/20 21:24 U Benzodiazepines Scrn Not Detected (NotDetected) 02/01/21 21:24 Urine Cocaine Screen Not Detected (NotDetected) 11/16/20 21:24 U Marijuana (THC) Screen Detected (NotDetected) H 11/16/20 21:24 Coronavirus (PCR) Not Detected (Not Detectd) 11/16/20 23:32 Vital Signs Temp 97.5 F L 11/25/20 06:59 Pulse 130 H 11/25/20 06:59 Resp 16 11/25/20 06:59 BP 134/79 11/25/20 06:59 Pulse Ox 97 11/24/20 06:45 Patient Condition at Discharge: Stable Plan - Discharge Summary Discharge Rx Participant: Yes New Discharge Prescriptions: New Melatonin 10 mg PO HS 30 Days tablet fluPHENAZine [Prolixin] 2 mg PO HS 5 Days tab Acetaminophen Tab [Tylenol] 650 mg PO Q4HR PRN tab PRN Reason: Pain/Discomfort fluPHENAZine decanoate [Prolixin Decanoate] 25 mg IM [id number] #1 vial Discontinued Paliperidone [Invega] 3 mg PO HS Discharge Medication List Acetaminophen Tab [Tylenol] 650 mg PO Q4HR PRN tab 11/25/20 [Rx] Melatonin 10 mg PO HS 30 Days tablet 11/25/20 [Rx] fluPHENAZine [Prolixin] 2 mg PO HS 5 Days tab 11/25/20 [Rx] fluPHENAZine decanoate [Prolixin Decanoate] 25 mg IM [id number] #1 vial 11/25/20 [Rx] Follow up Appointment(s)/Referral(s): [facility] [Outside] - 11/24/20 1:00 pm ( 11/24/2020 1:00PM - 1:30PM [facility] ) None,Stated [Primary Care Provider] - 1-2 days Activity/Diet/Wound Care/Special Instructions: Activity and diet as tolerated. Avoid the use of street drugs and alcohol. Take all medications as prescribed. When you are in need of refills on your medications please contact your medical provider and/or outpatient psychiatrist to have this done. Please go to scheduled outpatient appointment for aftercare treatment. If symptoms return or become worse, call the crisis line at and/or go to the nearest emergency room for evaluation. Discharge Disposition: HOME SELF-CARE
== END 2020-11-25 10:37 | disposition home or self-care (01) | DRG 885 ==
LOC: EC 19:49 → 3MHU 11-17 01:41
PROVIDERS: ADMIT Psychiatry & Neurology Psychiatry; ATTEND Psychiatry & Neurology Psychiatry
DX: F25.1 Schizoaffective disorder, depressive type (principal); F12.10 Cannabis abuse, uncomplicated; F17.200 Nicotine dependence, unspecified, uncomplicated; Z20.822 Contact with and (suspected) exposure to COVID-19; F41.9 Anxiety disorder, unspecified; G47.00 Insomnia, unspecified; Z91.14 Patient's other noncompliance with medication regimen; Z91.19 Patient's noncompliance with other medical treatment and regimen; Z98.890 Other specified postprocedural states
CPT/HCPCS: 80306; 81001; 82075; 87635; 99285

== ENCOUNTER 2021-02-10 03:49 | Emergency (ER) | payer OTHER ==
[2021-02-10 03:59] VITALS: BP 125/83; PULSE 79; RESP 18; TEMP 98
--- NOTE | 2021-02-10 04:05 | ED ---
Anxiety HPI - General Chief Complaint: Anxiety Stated Complaint: Poss panic attack Time Seen by Provider: 02/10/21 03:51 Source: patient, RN notes reviewed, old records reviewed Mode of arrival: ambulatory Limitations: no limitations - History of Present Illness Initial Comments: This is a 30-year-old male DF for evaluation patient has history of anxiety coming with family member, family states patient's been very anxious as of late. Patient had to leave work secondary to anxiety and panic attack. Patient does not want psychiatric evaluation site states he has is all psychiatric doctor just wants something up and calm down. Denies drugs or alcohol, denies homicidal or suicidal thoughts Complaint: anxiety -: days(s) Symptoms: dyspnea Place: home Previous History of Same: Yes Severity: mild Quality: constant Provoking factors: none known Improves With: nothing Worsens With: nothing Associated symptoms: shortness of breath, palpitations - Related Data Home Medications: Previous Rx's Medication Instructions Recorded Acetaminophen Tab [Tylenol] 650 mg PO Q4HR PRN tab 11/25/20 Melatonin 10 mg PO HS 30 Days tablet 11/25/20 fluPHENAZine [Prolixin] 2 mg PO HS 5 Days tab 11/25/20 fluPHENAZine decanoate [Prolixin 25 mg IM [id number] #1 vial 11/25/20 Decanoate] Allergies/Adverse Reactions: Allergies Allergy/AdvReac Type Severity Reaction Status Date / Time No Known Allergies Allergy Verified 02/10/21 03:59 Review of Systems ROS Statement: Those systems with pertinent positive or pertinent negative responses have been documented in the HPI. ROS Other: All systems not noted in ROS Statement are negative. Past Medical History Past Medical History: No Reported History History of Any Multi-Drug Resistant Organisms: None Reported Past Surgical History: Orthopedic Surgery Additional Past Surgical History / Comment(s): right arm, Past Psychological History: ADD/ADHD, Anxiety, Depression Smoking Status: Current every day smoker Past Alcohol Use History: None Reported Past Drug Use History: Marijuana General Exam Limitations: no limitations General appearance: alert, in no apparent distress Head exam: Present: atraumatic, normocephalic, normal inspection Eye exam: Present: normal appearance, PERRL, EOMI. Absent: scleral icterus, conjunctival injection, periorbital swelling ENT exam: Present: normal exam, mucous membranes moist Neck exam: Present: normal inspection. Absent: tenderness, meningismus, lymphadenopathy Respiratory exam: Present: normal lung sounds bilaterally. Absent: respiratory distress, wheezes, rales, rhonchi, stridor Cardiovascular Exam: Present: regular rate, normal rhythm, normal heart sounds. Absent: systolic murmur, diastolic murmur, rubs, gallop, clicks GI/Abdominal exam: Present: soft, normal bowel sounds. Absent: distended, tenderness, guarding, rebound, rigid Extremities exam: Present: normal inspection, full ROM, normal capillary refill. Absent: tenderness, pedal edema, joint swelling, calf tenderness Back exam: Present: normal inspection Neurological exam: Present: alert, oriented X3, CN II-XII intact Psychiatric exam: Present: normal affect, normal mood Skin exam: Present: warm, dry, intact, normal color. Absent: rash Course Vital Signs 02/10/21 03:57 Temperature 98 F Pulse Rate 79 Respiratory 18 Rate Blood Pressure 125/83 O2 Sat by Pulse 97 Oximetry - Reevaluation(s) Reevaluation #1: Medical record is reviewed patient symptoms are improved significantly here in the ER Patient informed results and questions answered Medical Decision Making - Medical Decision Making 30 male for anxiety attack. Anxiety is resolved here in the ER and can be discharged home - Lab Data Lab Results 02/10/21 Range/Units 04:17 Urine Opiates Screen Not Reportable Ur Oxycodone Screen Not Reportable Urine Methadone Screen Not Reportable Ur Propoxyphene Screen Not Reportable Ur Barbiturates Screen Not Reportable U Tricyclic Antidepress Not Reportable Ur Phencyclidine Scrn SIEBEL ARCHITECT Ur Amphetamines Screen Not Reportable U Methamphetamines Scrn Not Reportable U Benzodiazepines Scrn Not Reportable Urine Cocaine Screen SIEBEL ARCHITECT U Marijuana (THC) Screen Not Reportable Disposition Clinical Impression: Acute anxiety, Panic attack Disposition: HOME SELF-CARE Condition: Good Instructions (If sedation given, give patient instructions): Generalized Anxiety Disorder (ED) Is patient prescribed a controlled substance at d/c from ED?: No Referrals: Moris Schumacher MD [Primary Care Provider] - 1-2 days
[2021-02-10] MEDS ORDERED: LORazepam 1 MG TAB PO STA (04:17)
[2021-02-10] MEDS ORDERED: ONDANSETRON ODT 4 MG TAB PO STA (04:17)
[2021-02-10] MEDS ORDERED: ONDANSETRON 4 MG ODT STARTER PACK 2 TAB BTL PO STA (04:51)
== END 2021-02-10 04:57 | disposition home or self-care (01) ==
LOC: EC 03:49
DX: F41.0 Panic disorder [episodic paroxysmal anxiety] (principal); F32.9 Major depressive disorder, single episode, unspecified; F17.200 Nicotine dependence, unspecified, uncomplicated; F12.90 Cannabis use, unspecified, uncomplicated
CPT/HCPCS: 80306; 99284; S0119

== ENCOUNTER 2021-02-12 23:11 | Emergency (ER) | payer OTHER ==
[2021-02-13] MEDS ORDERED: SODIUM CHLORIDE 0.9% 1,000 ML IV ONE (00:12)
[2021-02-13] MEDS ORDERED: LORazepam 2 MG/ML INJ IV STA (00:12)
[2021-02-13 00:48] LABS: Basophils # (A) 0.1 k/uL (0-0.2); Basophils % (A) 0 %; Eosinophils # (A) 0.3 k/uL (0-0.7); Eosinophils % (A) 2 %; HCT 43.9 % (39.0-53.0); HGB 15.3 gm/dL (13.0-17.5); Lymphocytes # (A) 1.3 k/uL (1.0-4.8); Lymphocytes % (A) 9 %; MCH 33.1 pg (25.0-35.0); MCHC 34.9 g/dL (31.0-37.0); MCV 94.9 fL (80.0-100.0); Mean Platelet Volume 7.4; Monocytes # (A) 0.8 k/uL (0-1.0); Monocytes % (A) 5 %; Neutrophils # (A) 12.6 k/uL (1.3-7.7); Neutrophils % (A) 83 %; Platelet Count 240 k/uL (150-450); RBC 4.63 m/uL (4.30-5.90); WBC 15.3 k/uL (3.8-10.6)
[2021-02-13 01:26] LABS: ALT 17 U/L (4-49); AST 18 U/L (17-59); African American GFR (CKD) >90 (>60 ml/min/1.73 sqM); Albumin 4.4 g/dL (3.5-5.0); Alkaline Phosphatase 48 U/L (38-126); Anion Gap 5 mmol/L; Blood Urea Nitrogen 10 mg/dL (9-20); Calcium 9.8 mg/dL (8.4-10.2); Carbon Dioxide 28 mmol/L (22-30); Chloride 104 mmol/L (98-107); Glucose 100 mg/dL (74-99); Non-African American GFR(CKD) >90 (>60 ml/min/1.73 sqM); Sodium 137 mmol/L (137-145); Total Bilirubin 0.3 mg/dL (0.2-1.3)
[2021-02-13 01:32] LABS: Cocaine Screen,Urine Not Detected (NotDetected); Phencyclidine Screen,Urine Not Detected (NotDetected)
[2021-02-13 01:33] LABS: Amphetamine Screen,Urine Not Detected (NotDetected); Barbiturate Screen,Urine Not Detected (NotDetected); Benzodiazepines Screen,Urine Detected (NotDetected); Methadone Screen, Urine Not Detected (NotDetected); Opiate Screen,Urine Detected (NotDetected); Oxycodone Screen, Urine Not Detected (NotDetected); Tricyclic Antidepressant,Urine Not Detected (NotDetected); Urn Cannabinoid Scrn Detected (NotDetected)
--- NOTE | 2021-02-13 02:47 | ED ---
General Adult HPI - General Chief complaint: Psychiatric Symptoms Stated complaint: Mental Health Time Seen by Provider: 02/12/21 23:18 Source: patient, EMS Mode of arrival: EMS Limitations: no limitations - History of Present Illness Initial comments: This patient is 30-year-old man who presents with complaint that he has been feeling anxious going on a couple of days, but tonight worsened he is not able to sleep. The patient states he is been pacing and has been feeling tremulous. Patient denies significant depression and suicidal ideation. Denies hallucinations. Patient states that he tried marijuana on it did not help -: days(s) Severity scale (1-10): 0 Consistency: constant Improves with: none Worsens with: none - Related Data Previous Rx's Medication Instructions Recorded Acetaminophen Tab [Tylenol] 650 mg PO Q4HR PRN tab 11/25/20 Melatonin 10 mg PO HS 30 Days tablet 11/25/20 fluPHENAZine [Prolixin] 2 mg PO HS 5 Days tab 11/25/20 fluPHENAZine decanoate [Prolixin 25 mg IM [id number] #1 vial 11/25/20 Decanoate] Allergies Allergy/AdvReac Type Severity Reaction Status Date / Time No Known Allergies Allergy Verified 02/10/21 03:59 Review of Systems ROS Statement: Those systems with pertinent positive or pertinent negative responses have been documented in the HPI. ROS Other: All systems not noted in ROS Statement are negative. Constitutional: Denies: fever, chills Eyes: Denies: vision change Respiratory: Denies: cough, dyspnea Cardiovascular: Denies: chest pain, palpitations, edema Gastrointestinal: Denies: abdominal pain, vomiting, diarrhea Skin: Denies: rash Neurological: Denies: headache, weakness Psychiatric: Reports: anxiety. Denies: depression, auditory hallucinations, homicidal thoughts, suicidal thoughts Past Medical History Past Medical History: No Reported History History of Any Multi-Drug Resistant Organisms: None Reported Past Surgical History: Orthopedic Surgery Additional Past Surgical History / Comment(s): right arm, Past Psychological History: ADD/ADHD, Anxiety, Depression Smoking Status: Current every day smoker Past Alcohol Use History: None Reported Past Drug Use History: Marijuana General Exam Limitations: no limitations General appearance: alert, in no apparent distress, anxious Head exam: Present: atraumatic, normocephalic Eye exam: Present: normal appearance. Absent: scleral icterus, conjunctival injection ENT exam: Present: normal oropharynx Respiratory exam: Present: normal lung sounds bilaterally. Absent: respiratory distress, wheezes, rales, rhonchi, stridor Cardiovascular Exam: Present: regular rate, normal rhythm, normal heart sounds. Absent: systolic murmur, diastolic murmur, rubs, gallop GI/Abdominal exam: Present: soft. Absent: tenderness, guarding, rebound Extremities exam: Present: normal inspection, normal capillary refill. Absent: pedal edema, calf tenderness Back exam: Present: normal inspection Neurological exam: Present: alert Psychiatric exam: Present: anxious. Absent: depressed, homicidal ideation, suicidal ideation Skin exam: Present: warm, dry, intact, normal color. Absent: rash Course Vital Signs 02/12/21 02/13/21 02/13/21 23:14 01:14 02:36 Temperature 98.2 F Pulse Rate 107 H Respiratory 18 17 15 Rate Blood Pressure 145/85 O2 Sat by Pulse 97 Oximetry 02/13/21 03:05 Temperature 98.0 F Pulse Rate 75 Respiratory 16 Rate Blood Pressure 124/84 O2 Sat by Pulse 100 Oximetry Medical Decision Making - Medical Decision Making Patient is feeling better following medication. He is not having suicidal ideation or depression. He would like to go home at this point and have follow- up. Discussed return parameters and appropriate further care. - Lab Data Result diagrams: 02/13/21 00:31 02/13/21 00:31 Lab Results 02/13/21 02/13/21 02/13/21 Range/Units 00:31 00:31 00:51 WBC 15.3 H (3.8-10.6) k/uL RBC 4.63 (4.30-5.90) m/uL Hgb 15.3 (13.0-17.5) gm/dL Hct 43.9 (39.0-53.0) % MCV 94.9 (80.0-100.0) fL MCH 33.1 (25.0-35.0) pg MCHC 34.9 (31.0-37.0) g/dL RDW 12.0 (11.5-15.5) % Plt Count 240 (150-450) k/uL MPV 7.4 Neutrophils % 83 % Lymphocytes % 9 % Monocytes % 5 % Eosinophils % 2 % Basophils % 0 % Neutrophils # 12.6 H (1.3-7.7) k/uL Lymphocytes # 1.3 (1.0-4.8) k/uL Monocytes # 0.8 (0-1.0) k/uL Eosinophils # 0.3 (0-0.7) k/uL Basophils # 0.1 (0-0.2) k/uL Sodium 137 (137-145) mmol/L Potassium 4.0 (3.5-5.1) mmol/L Chloride 104 (98-107) mmol/L Carbon Dioxide 28 (22-30) mmol/L Anion Gap 5 mmol/L BUN 10 (9-20) mg/dL Creatinine 1.04 (0.66-1.25) mg/dL Est GFR (CKD-EPI)AfAm >90 (>60 ml/min/1.73 sqM) Est GFR (CKD-EPI)NonAf >90 (>60 ml/min/1.73 sqM) Glucose 100 H (74-99) mg/dL Calcium 9.8 (8.4-10.2) mg/dL Total Bilirubin 0.3 (0.2-1.3) mg/dL AST 18 (17-59) U/L ALT 17 (4-49) U/L Alkaline Phosphatase 48 (38-126) U/L Total Protein 7.0 (6.3-8.2) g/dL Albumin 4.4 (3.5-5.0) g/dL TSH 0.977 (0.465-4.680) mIU/L Urine Opiates Screen Detected H (NotDetected) Ur Oxycodone Screen Not Detected (NotDetected) Urine Methadone Screen Not Detected (NotDetected) Ur Propoxyphene Screen Not Detected (NotDetected) Ur Barbiturates Screen Not Detected (NotDetected) U Tricyclic Antidepress Not Detected (NotDetected) Ur Phencyclidine Scrn Not Detected (NotDetected) Ur Amphetamines Screen Not Detected (NotDetected) U Methamphetamines Scrn Not Detected (NotDetected) U Benzodiazepines Scrn Detected H (NotDetected) Urine Cocaine Screen Not Detected (NotDetected) U Marijuana (THC) Screen Detected H (NotDetected) Disposition Clinical Impression: Acute anxiety Disposition: HOME SELF-CARE Condition: Good Instructions (If sedation given, give patient instructions): Anxiety (ED) Is patient prescribed a controlled substance at d/c from ED?: No Referrals: None,Stated [Primary Care Provider] - 1-2 days
[2021-02-13 03:06] VITALS: BP 124/84; PULSE 75; RESP 16; TEMP 98
[2021-02-13] MEDS ORDERED: diphenhydrAMINE 50 MG CAP PO STA (03:11)
== END 2021-02-13 03:14 | disposition home or self-care (01) ==
LOC: EC 23:11
DX: F41.9 Anxiety disorder, unspecified (principal); F17.200 Nicotine dependence, unspecified, uncomplicated; F12.90 Cannabis use, unspecified, uncomplicated
CPT/HCPCS: 36415; 80053; 84443; 85025; 80306; 99285; 96374; 96361; J2060

== ENCOUNTER 2021-02-17 21:05 | Emergency (ER) | payer OTHER ==
[2021-02-17] MEDS ORDERED: LORazepam 2 MG/ML INJ IV STA (21:25)
[2021-02-17 21:27] VITALS: TEMP 98.3
[2021-02-17] MEDS ORDERED: SODIUM CHLORIDE 0.9% 1,000 ML IV STA (21:30)
--- NOTE | 2021-02-17 21:41 | ED ---
General Adult HPI - General Chief complaint: Anxiety Stated complaint: Anxiety Time Seen by Provider: 02/17/21 21:07 Source: patient Mode of arrival: EMS Limitations: no limitations - History of Present Illness Initial comments: Dictation was produced using Yek[employer] dictation software. please excuse any grammatical, word or spelling errors. This patient was cared for during a federal and state declared state of emergency secondary to Covid 19 Chief Complaint: 30-year-old male brought in by EMS for spasms and uncontrollable shaking. History of Present Illness: 30-year-old male presents to emergency department for spasms and uncontrollable shaking. Patient has history of psychiatric disease gets Prolixin shots every 2-3 weeks by his psychiatrist. Does not take any other medications. Patient smokes marijuana regularly. His brother is at bedside and reports that patient has been showing these acute spasm issues for the last 2-3 days. States that his symptoms are progressing. Patient does not take any medications. He has no other medical problems. He reports that his symptoms seem to be worse a couple days after his injection and most nonexistent 7-14 days after the psychiatric injection. The ROS documented in this emergency department record has been reviewed and confirmed by me. Those systems with pertinent positive or negative responses have been documented in the HPI. All other systems are other negative and/or noncontributory. PHYSICAL EXAM: General Impression: Alert and oriented x3, diaphoretic HEENT: Normocephalic atraumatic, extra-ocular movements intact, pupils equal and reactive to light bilaterally, mucous membranes moist. Cardiovascular: Tachycardic Chest: Able to complete full sentences, no retractions, no tachypnea Abdomen: abdomen soft, non-tender, non-distended, no organomegaly Musculoskeletal: Pulses present and equal in all extremities, no peripheral edema Motor: no focal deficits noted, no lead pipe rigidity, no clonus Neurological: CN II-XII grossly intact, no focal motor or sensory deficits noted Skin: Intact with no visualized rashes Psych: Flat affect ED course: 30-year-old male presents emergency department for acute spasmodic episodes. Vital Signs upon arrival shows heart rate of 104, rest of vital signs within acceptable limits. Laboratory evaluation obtained. CBC shows mild leukocytosis. Metabolic panel is negative. No rhabdomyolysis. Urinalysis shows 1+ ketones. Drug screens positive for marijuana. Tox labs are negative. Patient case was discussed with psychiatrist Dr. Fernandez who reports that dystonic reactions or common especially young males from this medication. Patient was observed in the emergency department for approximately 2 hours stable medical condition. Dr. Nix recommends starting patient on oral Cogentin twice a day 2 mg. Patient reevaluated bedside at 10:40 PM stable medical condition. States he feels much better. Repeat vital signs are unremarkable. Patient is well-appearing, no longer diaphoretic at bedside and ambulatory without complications and tolerated oral intake. Patient advised follow-up with a psychiatrist and let psychiatrist know that there is suspicion of adverse reactions to this medication. EKG interpretation: Ventricular rate 103, sinus tachycardia,. Interval 134, QRS 90, QTc 448. No [place] prolongation, no QTC prolongation, no ST or T-wave changes noted. Overall, this EKG is unremarkable - Related Data Previous Rx's Medication Instructions Recorded Acetaminophen Tab [Tylenol] 650 mg PO Q4HR PRN tab 11/25/20 Melatonin 10 mg PO HS 30 Days tablet 11/25/20 fluPHENAZine decanoate [Prolixin 25 mg IM [id number] #1 vial 11/25/20 Decanoate] Benztropine Mesylate [Cogentin] 2 mg PO Q12H 12 Days #24 tablet 02/17/21 Allergies Allergy/AdvReac Type Severity Reaction Status Date / Time No Known Allergies Allergy Verified 02/10/21 03:59 Review of Systems ROS Statement: Those systems with pertinent positive or pertinent negative responses have been documented in the HPI. ROS Other: All systems not noted in ROS Statement are negative. Past Medical History Past Medical History: No Reported History History of Any Multi-Drug Resistant Organisms: None Reported Past Surgical History: Orthopedic Surgery Additional Past Surgical History / Comment(s): right arm, Past Psychological History: ADD/ADHD, Anxiety, Depression Smoking Status: Current every day smoker Past Alcohol Use History: None Reported Past Drug Use History: Marijuana General Exam Limitations: no limitations Course Vital Signs 02/17/21 21:11 Temperature 98.3 F Pulse Rate 104 H Respiratory 22 Rate Blood Pressure 135/91 O2 Sat by Pulse 95 Oximetry Medical Decision Making - Lab Data Result diagrams: 02/17/21 Unknown 02/17/21 Unknown Lab Results 02/17/21 02/17/21 02/17/21 Range/Units Unknown Unknown Unknown WBC 12.5 H (3.8-10.6) k/uL RBC 4.82 (4.30-5.90) m/uL Hgb 15.6 (13.0-17.5) gm/dL Hct 46.4 (39.0-53.0) % MCV 96.3 (80.0-100.0) fL MCH 32.3 (25.0-35.0) pg MCHC 33.6 (31.0-37.0) g/dL RDW 12.9 (11.5-15.5) % Plt Count 230 (150-450) k/uL MPV 7.3 Neutrophils % 82 % Lymphocytes % 11 % Monocytes % 4 % Eosinophils % 3 % Basophils % 0 % Neutrophils # 10.2 H (1.3-7.7) k/uL Lymphocytes # 1.3 (1.0-4.8) k/uL Monocytes # 0.4 (0-1.0) k/uL Eosinophils # 0.4 (0-0.7) k/uL Basophils # 0.1 (0-0.2) k/uL Sodium 138 (137-145) mmol/L Potassium 3.8 (3.5-5.1) mmol/L Chloride 104 (98-107) mmol/L Carbon Dioxide 22 (22-30) mmol/L Anion Gap 12 mmol/L BUN 11 (9-20) mg/dL Creatinine 0.98 (0.66-1.25) mg/dL Est GFR (CKD-EPI)AfAm >90 (>60 ml/min/1.73 sqM) Est GFR (CKD-EPI)NonAf >90 (>60 ml/min/1.73 sqM) Glucose 119 H (74-99) mg/dL Calcium 9.9 (8.4-10.2) mg/dL Total Bilirubin 0.3 (0.2-1.3) mg/dL AST 20 (17-59) U/L ALT 19 (4-49) U/L Alkaline Phosphatase 46 (38-126) U/L Creatine Kinase 66 (55-170) U/L Total Protein 7.2 (6.3-8.2) g/dL Albumin 4.7 (3.5-5.0) g/dL Urine Color Urine Appearance (Clear) Urine pH (5.0-8.0) Ur Specific [place] (1.001-1.035) Urine Protein (Negative) Urine Glucose (UA) (Negative) Urine Ketones (Negative) Urine Blood (Negative) Urine Nitrite (Negative) Urine Bilirubin (Negative) Urine Urobilinogen (<2.0) mg/dL Ur Leukocyte Esterase (Negative) Urine RBC (0-5) /hpf Urine WBC (0-5) /hpf Ur Squamous Epith Cells (0-4) /hpf Hyaline Casts (0-2) /lpf Urine Mucus (None) /hpf Salicylates <1.0 mg/dL Urine Opiates Screen Not Detected (NotDetected) Ur Oxycodone Screen Not Detected (NotDetected) Urine Methadone Screen Not Detected (NotDetected) Ur Propoxyphene Screen Not Detected (NotDetected) Acetaminophen <10.0 ug/mL Ur Barbiturates Screen Not Detected (NotDetected) U Tricyclic Antidepress Not Detected (NotDetected) Ur Phencyclidine Scrn Not Detected (NotDetected) Ur Amphetamines Screen Not Detected (NotDetected) U Methamphetamines Scrn Not Detected (NotDetected) U Benzodiazepines Scrn Not Detected (NotDetected) Urine Cocaine Screen Not Detected (NotDetected) U Marijuana (THC) Screen Detected H (NotDetected) Serum Alcohol <10 mg/dL 02/17/21 Range/Units Unknown WBC (3.8-10.6) k/uL RBC (4.30-5.90) m/uL Hgb (13.0-17.5) gm/dL Hct (39.0-53.0) % MCV (80.0-100.0) fL MCH (25.0-35.0) pg MCHC (31.0-37.0) g/dL RDW (11.5-15.5) % Plt Count (150-450) k/uL MPV Neutrophils % % Lymphocytes % % Monocytes % % Eosinophils % % Basophils % % Neutrophils # (1.3-7.7) k/uL Lymphocytes # (1.0-4.8) k/uL Monocytes # (0-1.0) k/uL Eosinophils # (0-0.7) k/uL Basophils # (0-0.2) k/uL Sodium (137-145) mmol/L Potassium (3.5-5.1) mmol/L Chloride (98-107) mmol/L Carbon Dioxide (22-30) mmol/L Anion Gap mmol/L BUN (9-20) mg/dL Creatinine (0.66-1.25) mg/dL Est GFR (CKD-EPI)AfAm (>60 ml/min/1.73 sqM) Est GFR (CKD-EPI)NonAf (>60 ml/min/1.73 sqM) Glucose (74-99) mg/dL Calcium (8.4-10.2) mg/dL Total Bilirubin (0.2-1.3) mg/dL AST (17-59) U/L ALT (4-49) U/L Alkaline Phosphatase (38-126) U/L Creatine Kinase (55-170) U/L Total Protein (6.3-8.2) g/dL Albumin (3.5-5.0) g/dL Urine Color Yellow Urine Appearance Clear (Clear) Urine pH 5.5 (5.0-8.0) Ur Specific [place] 1.033 (1.001-1.035) Urine Protein 1+ H (Negative) Urine Glucose (UA) Negative (Negative) Urine Ketones 1+ H (Negative) Urine Blood Negative (Negative) Urine Nitrite Negative (Negative) Urine Bilirubin Negative (Negative) Urine Urobilinogen 2.0 (<2.0) mg/dL Ur Leukocyte Esterase Negative (Negative) Urine RBC <1 (0-5) /hpf Urine WBC 2 (0-5) /hpf Ur Squamous Epith Cells <1 (0-4) /hpf Hyaline Casts 3 H (0-2) /lpf Urine Mucus Many H (None) /hpf Salicylates mg/dL Urine Opiates Screen (NotDetected) Ur Oxycodone Screen (NotDetected) Urine Methadone Screen (NotDetected) Ur Propoxyphene Screen (NotDetected) Acetaminophen ug/mL Ur Barbiturates Screen (NotDetected) U Tricyclic Antidepress (NotDetected) Ur Phencyclidine Scrn (NotDetected) Ur Amphetamines Screen (NotDetected) U Methamphetamines Scrn (NotDetected) U Benzodiazepines Scrn (NotDetected) Urine Cocaine Screen (NotDetected) U Marijuana (THC) Screen (NotDetected) Serum Alcohol mg/dL Disposition Clinical Impression: Dystonic drug reaction Disposition: HOME SELF-CARE Condition: Fair Instructions (If sedation given, give patient instructions): Extrapyramidal Symptoms (ED) Additional Instructions: Follow-up with your psychiatrist. There is suspicion that you are experiencing adverse effect from Prolixin called dystonic reaction. It is important that you address with your psychiatrist. You're prescribed a medication that is used to prevent dystonic reactions caused by your every 2 weekly injections. Prescriptions: Benztropine Mesylate [Cogentin] 2 mg PO Q12H 12 Days #24 tablet Is patient prescribed a controlled substance at d/c from ED?: No Referrals: Moris Schumacher MD [Primary Care Provider] - 1-2 days Time of Disposition: 22:42
[2021-02-17 21:46] LABS: Basophils # (A) 0.1 k/uL (0-0.2); Basophils % (A) 0 %; Eosinophils # (A) 0.4 k/uL (0-0.7); Eosinophils % (A) 3 %; HCT 46.4 % (39.0-53.0); HGB 15.6 gm/dL (13.0-17.5); Lymphocytes # (A) 1.3 k/uL (1.0-4.8); Lymphocytes % (A) 11 %; MCH 32.3 pg (25.0-35.0); MCHC 33.6 g/dL (31.0-37.0); MCV 96.3 fL (80.0-100.0); Mean Platelet Volume 7.3; Monocytes # (A) 0.4 k/uL (0-1.0); Monocytes % (A) 4 %; Neutrophils # (A) 10.2 k/uL (1.3-7.7); Neutrophils % (A) 82 %; Platelet Count 230 k/uL (150-450); RBC 4.82 m/uL (4.30-5.90); RDW 12.9 % (11.5-15.5); WBC 12.5 k/uL (3.8-10.6)
[2021-02-17 21:56] LABS: ALT 19 U/L (4-49); AST 20 U/L (17-59); Acetaminophen <10.0 ug/mL; African American GFR (CKD) >90 (>60 ml/min/1.73 sqM); Albumin 4.7 g/dL (3.5-5.0); Alcohol <10 mg/dL; Alkaline Phosphatase 46 U/L (38-126); Anion Gap 12 mmol/L; Blood Urea Nitrogen 11 mg/dL (9-20); Calcium 9.9 mg/dL (8.4-10.2); Carbon Dioxide 22 mmol/L (22-30); Chloride 104 mmol/L (98-107); Creatine Kinase 66 U/L (55-170); Glucose 119 mg/dL (74-99); Non-African American GFR(CKD) >90 (>60 ml/min/1.73 sqM); Potassium 3.8 mmol/L (3.5-5.1); Salicylate <1.0 mg/dL; Sodium 138 mmol/L (137-145); Total Bilirubin 0.3 mg/dL (0.2-1.3); Total Protein 7.2 g/dL (6.3-8.2)
[2021-02-17 22:04] LABS: Appearance,Urine Clear (Clear); Bilirubin,Urine Negative (Negative); Blood,Urine Negative (Negative); Color,Urine Yellow; Glucose,Urine (UA) Negative (Negative); Hyaline Casts,Urine 3 /lpf (0-2); Ketones,Urine 1+ (Negative); Leukocyte Esterase,Urine Negative (Negative); Mucus,Urine Many /hpf; Nitrite,Urine Negative (Negative); PH, Urine 5.5 (5.0-8.0); Protein,Urine 1+ (Negative); RBC,Urine <1 /hpf (0-5); Specific Gravity,Urine 1.033 (1.001-1.035); Squamous Epithelial Cell,Urine <1 /hpf (0-4); WBC,Urine 2 /hpf (0-5)
[2021-02-17 22:15] LABS: Amphetamine Screen,Urine Not Detected (NotDetected); Barbiturate Screen,Urine Not Detected (NotDetected); Benzodiazepines Screen,Urine Not Detected (NotDetected); Cocaine Screen,Urine Not Detected (NotDetected); Methadone Screen, Urine Not Detected (NotDetected); Opiate Screen,Urine Not Detected (NotDetected); Oxycodone Screen, Urine Not Detected (NotDetected); Phencyclidine Screen,Urine Not Detected (NotDetected); Tricyclic Antidepressant,Urine Not Detected (NotDetected); Urn Cannabinoid Scrn Detected (NotDetected)
[2021-02-17] MEDS ORDERED: BENZTROPINE MESYLATE 1 MG TAB PO SCH (22:15)
[2021-02-18] MEDS ORDERED: diphenhydrAMINE 50 MG/ML 1 ML VIAL IVP STA (00:06)
[2021-02-18] MEDS ORDERED: BENZTROPINE MESYLATE 1 MG TAB PO STA (00:11)
[2021-02-18 00:15] VITALS: BP 119/76; PULSE 86; RESP 20
== END 2021-02-18 00:25 | disposition home or self-care (01) ==
LOC: EC 21:05
DX: G24.09 Other drug induced dystonia (principal); F41.9 Anxiety disorder, unspecified; F90.9 Attention-deficit hyperactivity disorder, unspecified type; F17.200 Nicotine dependence, unspecified, uncomplicated; F12.90 Cannabis use, unspecified, uncomplicated
CPT/HCPCS: 36415; 93005; 80053; 82550; 85025; 81001; 80306; 80143; 80179; 99284; 96374; 96375; 96361; G0480; J2060; J1200; 80320

== ENCOUNTER 2021-07-24 03:32 | Emergency (ER) | payer OTHER ==
[2021-07-24 03:50] VITALS: PULSE 86; RESP 20; TEMP 98.5
== END 2021-07-24 03:58 | disposition left against medical advice (07) ==
LOC: EC 03:32
DX: Z53.21 Procedure and treatment not carried out due to patient leaving prior to being seen by health care provider (principal)
CPT/HCPCS: 99499

== ENCOUNTER 2021-08-06 11:51 | Inpatient (IN) | payer MEDICAID, OTHER ==
[2021-08-06 12:44] LABS: Amphetamine Screen,Urine Not Detected (NotDetected); Barbiturate Screen,Urine Not Detected (NotDetected); Benzodiazepines Screen,Urine Not Detected (NotDetected); Cocaine Screen,Urine Not Detected (NotDetected); Methadone Screen, Urine Not Detected (NotDetected); Opiate Screen,Urine Not Detected (NotDetected); Oxycodone Screen, Urine Not Detected (NotDetected); Phencyclidine Screen,Urine Not Detected (NotDetected); Tricyclic Antidepressant,Urine Not Detected (NotDetected)
[2021-08-06 12:45] LABS: Urn Cannabinoid Scrn Detected (NotDetected)
--- NOTE | 2021-08-06 13:33 | ED ---
General Adult HPI - General Stated complaint: Mental Health Time Seen by Provider: 08/06/21 12:05 Source: patient, EMS, RN notes reviewed Mode of arrival: EMS Limitations: no limitations - History of Present Illness Initial comments: 30-year-old male presents emergency from via EMS for psychiatric evaluation. Patient was picked up on a or evaluation secondary to patient being noncompliant with medication. Patient refuses IM injection of Prolixin stated that it was too sedating. Patient denies any alcohol abuse does admit to marijuana use no homicidal ideation no suicidal ideation - Related Data Home Medications Medication Instructions Recorded Confirmed Melatonin 5 mg PO HS 08/06/21 08/06/21 QUEtiapine [SEROquel] 100 mg PO HS 08/06/21 08/06/21 fluPHENAZine decanoate [Prolixin 25 mg IM Q14D 08/06/21 08/06/21 Decanoate] hydrOXYzine pamoate [Vistaril] 50 mg PO TID PRN 08/06/21 08/06/21 Previous Rx's Medication Instructions Recorded Benztropine Mesylate [Cogentin] 2 mg PO Q12H 12 Days #24 tablet 02/17/21 Allergies Allergy/AdvReac Type Severity Reaction Status Date / Time No Known Allergies Allergy Verified 07/24/21 03:47 Review of Systems ROS Statement: Those systems with pertinent positive or pertinent negative responses have been documented in the HPI. ROS Other: All systems not noted in ROS Statement are negative. Past Medical History Past Medical History: No Reported History History of Any Multi-Drug Resistant Organisms: None Reported Past Surgical History: Orthopedic Surgery Additional Past Surgical History / Comment(s): right arm, Past Psychological History: ADD/ADHD, Anxiety, Depression Smoking Status: Current every day smoker Past Alcohol Use History: None Reported Past Drug Use History: Marijuana General Exam Limitations: no limitations General appearance: alert, in no apparent distress Head exam: Present: atraumatic, normocephalic, normal inspection Eye exam: Present: normal appearance, PERRL, EOMI. Absent: scleral icterus, conjunctival injection, periorbital swelling ENT exam: Present: normal exam, mucous membranes moist Neck exam: Present: normal inspection, full ROM. Absent: tenderness, meningismus, lymphadenopathy Respiratory exam: Present: normal lung sounds bilaterally. Absent: respiratory distress, wheezes, rales, rhonchi, stridor Cardiovascular Exam: Present: regular rate, normal rhythm, normal heart sounds. Absent: systolic murmur, diastolic murmur, rubs, gallop, clicks Neurological exam: Present: alert, oriented X3, CN II-XII intact Skin exam: Present: warm, dry, intact, normal color, rash (Bilateral hand rash noted) Course Vital Signs 08/06/21 12:01 Temperature 98.6 F Pulse Rate 80 Respiratory 20 Rate Blood Pressure 137/70 O2 Sat by Pulse 98 Oximetry Medical Decision Making - Medical Decision Making Patient was evaluated as patient be admitted for psychiatric treatment. Patient does have noted rash on his hand stating was treated for scabies. Patient no improvement. There is some concern for possible dyshidrotic eczema. Patient may require - Lab Data Lab Results 08/06/21 Range/Units 12:20 Urine Opiates Screen Not Detected (NotDetected) Ur Oxycodone Screen Not Detected (NotDetected) Urine Methadone Screen Not Detected (NotDetected) Ur Propoxyphene Screen Not Detected (NotDetected) Ur Barbiturates Screen Not Detected (NotDetected) U Tricyclic Antidepress Not Detected (NotDetected) Ur Phencyclidine Scrn Not Detected (NotDetected) Ur Amphetamines Screen Not Detected (NotDetected) U Methamphetamines Scrn Not Detected (NotDetected) U Benzodiazepines Scrn Not Detected (NotDetected) Urine Cocaine Screen Not Detected (NotDetected) U Marijuana (THC) Screen Detected H (NotDetected) Disposition Clinical Impression: Poor compliance with medication, Psychiatric disorder Disposition: TRANSFER TO PSYCH HOSP/UNIT Referrals: Moris Schumacher MD [Primary Care Provider] - 1-2 days
--- NOTE | 2021-08-06 16:19 | ED ---
Medical Decision Making - Medical Decision Making Patient was evaluated by the EPS service she will be admitted for evaluation and treatment of noncompliance for schizoaffective disorder - Lab Data Lab Results 08/06/21 Range/Units 12:20 Urine Opiates Screen Not Detected (NotDetected) Ur Oxycodone Screen Not Detected (NotDetected) Urine Methadone Screen Not Detected (NotDetected) Ur Propoxyphene Screen Not Detected (NotDetected) Ur Barbiturates Screen Not Detected (NotDetected) U Tricyclic Antidepress Not Detected (NotDetected) Ur Phencyclidine Scrn Not Detected (NotDetected) Ur Amphetamines Screen Not Detected (NotDetected) U Methamphetamines Scrn Not Detected (NotDetected) U Benzodiazepines Scrn Not Detected (NotDetected) Urine Cocaine Screen Not Detected (NotDetected) U Marijuana (THC) Screen Detected H (NotDetected) Disposition Clinical Impression: Poor compliance with medication, Psychiatric disorder, Schizoaffective disorder Disposition: TRANSFER TO PSYCH HOSP/UNIT Condition: Stable Referrals: Moris Schumacher MD [Primary Care Provider] - 1-2 days
[2021-08-06] MEDS ORDERED: NICOTINE 7MG/24HR PATCH TRANSDERM STA (16:29)
[2021-08-06] MEDS ORDERED: ACETAMINOPHEN TAB 325 MG TAB PO PRN (20:01)
[2021-08-06] MEDS ORDERED: LORazepam 1 MG TAB PO PRN (20:01)
[2021-08-06] MEDS ORDERED: MAG HYDROX/AL HYDROX/SIMETH 30 ML CUP PO PRN (20:01)
[2021-08-06] MEDS ORDERED: MAGNESIUM HYDROXIDE 2,400 MG/10 ML CUP PO PRN (20:01)
[2021-08-06 20:35] LABS: Appearance,Urine Clear (Clear); Bilirubin,Urine Negative (Negative); Blood,Urine Negative (Negative); Color,Urine Colorless; Glucose,Urine (UA) Negative (Negative); Ketones,Urine Negative (Negative); Leukocyte Esterase,Urine Negative (Negative); Nitrite,Urine Negative (Negative); Protein,Urine Negative (Negative); Specific Gravity,Urine 1.004 (1.001-1.035); Urobilinogen,Urine <2.0 mg/dL (<2.0)
[2021-08-07 08:13] LABS: Basophils % (A) 0 %; Eosinophils # (A) 0.4 k/uL (0-0.7); Eosinophils % (A) 4 %; HCT 44.8 % (39.0-53.0); HGB 14.8 gm/dL (13.0-17.5); Lymphocytes # (A) 2.3 k/uL (1.0-4.8); Lymphocytes % (A) 26 %; MCH 32.2 pg (25.0-35.0); MCV 97.5 fL (80.0-100.0); Mean Platelet Volume 7.8; Monocytes # (A) 0.6 k/uL (0-1.0); Monocytes % (A) 6 %; Neutrophils # (A) 5.6 k/uL (1.3-7.7); Neutrophils % (A) 62 %; Platelet Count 246 k/uL (150-450); RDW 12.1 % (11.5-15.5); WBC 9.1 k/uL (3.8-10.6)
[2021-08-07 08:41] LABS: ALT 28 U/L (4-49); AST 29 U/L (17-59); African American GFR (CKD) >90 (>60 ml/min/1.73 sqM); Albumin 3.8 g/dL (3.5-5.0); Alkaline Phosphatase 45 U/L (38-126); Anion Gap 9 mmol/L; Blood Urea Nitrogen 11 mg/dL (9-20); Calcium 9.5 mg/dL (8.4-10.2); Carbon Dioxide 25 mmol/L (22-30); Chloride 105 mmol/L (98-107); Glucose 83 mg/dL (74-99); Non-African American GFR(CKD) >90 (>60 ml/min/1.73 sqM); Potassium 4.3 mmol/L (3.5-5.1); Sodium 139 mmol/L (137-145); Total Bilirubin 0.6 mg/dL (0.2-1.3); Total Protein 6.6 g/dL (6.3-8.2)
[2021-08-07] MEDS ORDERED: hydrOXYzine pamoate 25 MG CAP PO PRN (09:49)
[2021-08-07] MEDS ORDERED: BENZTROPINE MESYLATE 1 MG TAB PO SCH (10:00)
[2021-08-07] MEDS ORDERED: fluPHENAZine DECANOATE 25 MG/ML 5ML MDV IM SCH (11:00)
[2021-08-07] MEDS ORDERED: diphenhydrAMINE 50 MG CAP PO PRN (12:24)
[2021-08-07] MEDS: diphenhydrAMINE 50 MG CAP PO SCH ×2 (13:20→20:34)
--- NOTE | 2021-08-07 14:26 | CONS ---
CONSULTATION CHIEF COMPLAINT: Major depression. HISTORY OF PRESENT ILLNESS: This is another psych admission for this 30-year-old white male. When asked why he is in the hospital, he states, "I went off my medications." Apparently he presented with depression and bipolar issues as well as suicidal thoughts. He has not been seen in my office since 2019. At that time he was on Seroquel 100 mg at bedtime. REVIEW OF SYSTEMS: He denies any headaches, chest pain, abdominal pain, nausea, urinary complaints, etc. Past medical history, family history, and personal and social histories are essentially unremarkable. He does drink alcohol. He smokes a pack of cigarettes a day. He is NOT ALLERGIC TO ANY MEDICATION. Past history is otherwise unremarkable. PHYSICAL EXAMINATION: Blood pressure 112/76, pulse 64, respirations of 18. He is afebrile. In general he appeared to be well developed, well nourished, in no acute distress. Skin color is normal. Skin is warm and dry. Lymph nodes are not enlarged. Head, ears, eyes, nose, mouth and throat were normal and neck veins are not distended. Thyroid is not enlarged. Chest is clear. Cardiac exam is normal. The abdomen is soft and nontender. Extremities are normal. Neurologically he is intact. He is admitted to the hospital with diagnoses: 1. Major depression. 2. Schizophrenia? RECOMMENDATIONS: None. Thank you. Respectfully, Moris Schumacher II, M.D. CASEY / BETH: [id number] /
--- NOTE | 2021-08-07 15:44 | HP ---
HISTORY AND PHYSICAL PSYCHIATRIC ADMISSION NOTE: IDENTIFYING DATA: The patient is a 30-year-old male. He lives with his mother. He presented to the ED on a pick-up order for noncompliance with medications. HISTORY OF PRESENTING ILLNESS: The patient has had one prior psychiatric hospitalization this year in November and three hospitalizations in this facility last year. In November he was admitted to this unit on a petition for involuntary hospitalization. He had disorganized behavior. He was getting into significant agitation where he was yelling about Manolo and Satan. He believed that everyone was going to hurt him. He was also making threats to kill his brother, himself and police. He was having auditory hallucinations. He has been followed by [facility]. He is on Prolixin Decanoate 25 mg IM, with his last dose being 07/12/2021. He also is on Seroquel 100 mg at bedtime. He missed appointments at [facility] in the last two weeks. He says usually he goes on a weekly basis. He has been reluctant to take medications, stating that they are too sedating and they make him feel like a "zombie." He says that his mother also states that they seem to make him feel that way. He was vague about any other issues or symptoms he might be having currently. He did make some suggestion that he was having difficulty with his muscles and suggested he may be having tremors, though he was not clear with details. He was not able to provide any information about circumstances over the last few weeks or more that might be impacting his current situation. It is noted that his urine drug screen was positive for marijuana as the only abusive substance. In addition it is noted that he says he has not been sleeping well of late. He is admitted for further evaluation. SUBSTANCE USE HISTORY: Urine drug screen positive for marijuana, which he seems to indicate that he smokes regularly. PAST MEDICAL HISTORY: Patient reports no significant chronic or current general health complaints other than complaining of a rash on his hands, which he says is due to fleas from cats in the house. FAMILY/SOCIAL HISTORY: Patient did not provide any clear information. I refer the reader to previous admission notes for further details. MENTAL STATUS EXAM: Patient sat with some restlessness. He gave fair eye contact. He answered questions with brief responses. He did not say much. His affect was flat, his mood reserved. He seemed somewhat distressed. He seemed to show indications of delusional thinking. He voiced no thoughts of harm. On cognitive exam, he did not respond to formal cognitive questions. He was oriented and alert. He gave some information that was consistent with what is documented in the medical record in regard to recent events. Insight and judgment were quite limited. PHYSICAL EXAMINATION: As per medical consultation. ASSESSMENT: This 30-year-old male is diagnosed with schizophrenia. He has not been medication- compliant of late based on what he believes are certain side effects with his medications. He was not able to describe much in terms of other precipitating factors. At this point we do not have information from [facility] in regard to his progress over time. Strengths include that he has had fairly consistent followup with [facility] in the past year until recently. Weakness includes marijuana use and possible medication side effects. DIAGNOSES: 1. Schizophrenia with acute exacerbation. 2. Marijuana use. RECOMMENDATIONS: Patient will be admitted for comprehensive medical, psychiatric and psychosocial evaluation. We will engage the patient in individual and group therapeutic activities. On admission the patient received Prolixin Decanoate 25 mg dose. I will start the patient on Benadryl 50 mg twice a day. The indication for Benadryl is for rash as well as potential EPS symptoms relating to Prolixin. I also will initiate Seroquel with an increased dose to 200 mg at bedtime. We will get further input from [facility] to coordinate for treatment and discharge planning. We will focus on stabilization and discharge planning. CASEY / BETH: [id number] /
[2021-08-07] MEDS: QUEtiapine 200 MG TAB PO SCH (20:33)
[2021-08-07] MEDS: MELATONIN 5 MG TABLET PO SCH (20:33)
[2021-08-07] MEDS ORDERED: QUEtiapine 100 MG TAB PO SCH (21:00)
[2021-08-08] MEDS: diphenhydrAMINE 50 MG CAP PO SCH ×2 (08:38→20:41)
[2021-08-08] MEDS: NICOTINE 21MG/24HR PATCH TRANSDERM SCH (08:38)
--- NOTE | 2021-08-08 13:38 | PN ---
PROGRESS NOTE DATE OF SERVICE: 08/08/2021. CHIEF COMPLAINT: The patient was having disorganized thinking. He had stopped taking medications, feeling they were causing him significant side effects, including sedation. He was functioning poorly at home. INTERVAL HISTORY: Patient has been doing fair. He had a quiet day yesterday. He tends to keep to himself. He will come out in the unit some. He does not interact too much with others. He did attend one group at 1300 hours yesterday. He was noted to be withdrawn and presented with low energy. He did not attend any of the other groups. He said he slept fair last night and noted that prior to coming into the hospital he had not been sleeping well. He mostly has spent the early part of the day in his room. He has not attended groups today. He reports no issues or problems relating to his psychotropics. He has been continued on his outpatient medications, with his Seroquel dose being increased to 200 mg a day, which he said had been a more effective dose for him in the past. He appears to tolerate his psychotropic medications. MENTAL STATUS EXAM: Patient gave fair eye contact. Psychomotor activity was slowed. Speech was monotone. He spoke in a soft voice. He answered questions with brief responses. He did not say a lot. His affect was blunted, his mood reserved. He did not appear to be significantly distressed. He seemed to show some indications of delusional thinking. He voiced no thoughts of harm. Cognition was clear. ASSESSMENT: I will continue the current diagnosis and treatment plan. I will continue psychotropic medications the same. We will need to get further input from [facility] and possibly input from the patient's mother as well, especially in terms of functional issues. We will focus on stabilization and discharge planning. MMODL / BETH: [id number] /
[2021-08-08] MEDS: MELATONIN 5 MG TABLET PO SCH (20:41)
[2021-08-08] MEDS: QUEtiapine 200 MG TAB PO SCH (20:41)
[2021-08-09] MEDS: NICOTINE 21MG/24HR PATCH TRANSDERM SCH (08:36)
[2021-08-09] MEDS: diphenhydrAMINE 50 MG CAP PO SCH ×2 (08:36→20:23)
[2021-08-09] MEDS: QUEtiapine 100 MG TAB PO SCH (20:22)
[2021-08-09] MEDS: MELATONIN 5 MG TABLET PO SCH (20:23)
[2021-08-10] MEDS: diphenhydrAMINE 50 MG CAP PO SCH ×2 (08:38→20:43)
[2021-08-10] MEDS: NICOTINE 21MG/24HR PATCH TRANSDERM SCH (08:38)
--- NOTE | 2021-08-10 17:02 | PN ---
PROGRESS NOTE DATE OF SERVICE: 08/10/2021. CHIEF COMPLAINT: The patient was having disorganized thinking. He had stopped taking medications, feeling they were causing him significant side effects, including sedation. He was functioning poorly at home. INTERVAL HISTORY: The patient has been doing fair. He had a quiet day yesterday. He spends a fair amount of time in his room. He keeps to himself. He will come out in the day area some, though he does not seem to interact much with others. He chose to attend one group yesterday. In that group, descriptors included: "withdrawn, disheveled, concrete, low energy." Patient reported that he slept better last night. He felt the medication adjustments were helping. He does say that he does not want to be on the Prolixin injection, primarily because he does not like getting shots. He understands that that will be an issue that he will need to address with his [facility] prescriber, Ms. Jatin DNP. His last contact with her was at the appointment April 30. Right at that time he was in the process of being evicted from his apartment and moved back with his mother. He subsequently missed the follow-up appointment, and apparently that led to his being dropped from some of his medications because of noncompliance. The patient said at present he is feeling better that he is back on his Seroquel. He did not object to a significant extent about receiving the Prolixin Decanoate injection of 25 mg, which he received on 08/07/2021. He understands that if he were to be continued on it, that the expectation would be he would receive another injection within two weeks of that one. He stated he feels the melatonin helps him with sleep. He appears to tolerate his psychotropic medications. MENTAL STATUS: Patient sat with a little restlessness. He gave fairly good eye contact. He answered questions with brief responses. His thoughts were clear. His affect was somewhat blunted, though not to a significant degree. He did show a little more emotional reactivity and a little broader intonation in his voice. He seemed a little more active and somewhat slightly more energetic. He did not appear distressed. There was no outward evidence of thought disorder. He denied thoughts of harm. Cognition was clear. ASSESSMENT: I will continue the current diagnosis and treatment plan. I will continue psychotropic medications the same. I would anticipate that we will be discharging the patient in the next 1 to 2 days. I had a brief discussion with the patient regarding his medications. I kept it limited, as he did not seem to be too inclined to engage in the conversation. We will focus on stabilization and discharge planning. CASEY / BETH: [id number] /
[2021-08-10] MEDS: MELATONIN 5 MG TABLET PO SCH (20:43)
[2021-08-10] MEDS: hydrOXYzine pamoate 25 MG CAP PO SCH (20:43)
[2021-08-10] MEDS: QUEtiapine 100 MG TAB PO SCH (20:43)
[2021-08-11 06:28] VITALS: RESP 15
[2021-08-11] MEDS: NICOTINE 21MG/24HR PATCH TRANSDERM SCH (08:34)
[2021-08-11] MEDS: hydrOXYzine pamoate 25 MG CAP PO SCH ×2 (08:34→20:23)
[2021-08-11] MEDS: diphenhydrAMINE 50 MG CAP PO SCH ×2 (08:34→20:22)
--- NOTE | 2021-08-11 15:20 | PN ---
PROGRESS NOTE DATE OF SERVICE: 08/09/2021 CHIEF COMPLAINT: The patient was having disorganized thinking. He had stopped taking medications, feeling they were causing him significant side effects including sedation. He was functioning poorly at home. INTERVAL HISTORY: Patient has been doing fair. He had a quiet day yesterday. He comes out on the unit some, mostly he keeps to himself. He spends a fair amount of time in his room. He continues to focus on the idea that he does not want to be on injection medications. He has been cooperative with care. He did receive Prolixin Decanoate 25 mg injection on the day of admission without any difficulties. He slept well last night. Today he has been up. He comes out in the day area. He wanders about some. He does not interact too much with others. He tends to not show much effort in terms of self-care. He voiced no specific complaints or concerns. He tolerates his psychotropic medications. MENTAL STATUS: Patient sat without restlessness. Eye contact was fair. Psychomotor activity was slowed. Speech was monotone. He answered questions with brief responses. He did not say a lot. His thoughts were clear. His affect was blunted, his mood reserved. He seems somewhat distressed. There was no indication of his responding to internal stimuli, though he is observed showing those kind of responses at times when he is on the unit. He voiced no thoughts of harm. Cognition was clear. ASSESSMENT: I will continue the current diagnosis and treatment plan. We continue to coordinate with [facility] for discharge planning. The patient has been cooperative with care. I would anticipate the patient being discharged by the end of the week. CASEY / PATRICIAN: [id number] /
--- NOTE | 2021-08-11 15:26 | PN ---
PROGRESS NOTE DATE OF SERVICE: Wil Loera date of service 08/11/2021 CHIEF COMPLAINT: The patient was having disorganized thinking. He had stopped taking medications, feeling they were causing him significant side effects including sedation. He was functioning poorly at home. INTERVAL HISTORY: The patient has been doing fair. He had a quiet day yesterday. Mostly he spends time in his room. He does come out to a limited extent. He does not really interact too much with others. It is noteworthy that yesterday he attended the two later groups in the day. In one of the groups the following was documented, "the patient attended on- time and fully participated in SW group. The patient reported "I wasn't taking my meds like I should have, so I came here. Since then I have talked to the doctors and I have a good routine now. I have been taking my meds. I feel better, relaxed." The patient slept well last night. Today he has been up. He comes out in the day area. He says that he will make an effort to attend some groups today. He slept in this morning. He reported no problems or concerns relating to his medications. I again reviewed issues in regard to his long-acting injectable. His main concern about that is simply that he does not like the shot. I noted that he would have to be talking with his prescribers at [facility] in regards to what their recommendation is. We discussed discharge planning issues. The patient tolerates his psychotropic medications. MENTAL STATUS: Patient sat without restlessness. He gave fair eye contact. He answered questions with brief responses. His thoughts were clear. His affect was a little blunted but not significantly so. His mood was quiet though not clearly down or depressed. He did not appear to be distressed. There was no indication of thought disorder in how he presented. He voiced no thoughts of harm. Cognition was clear. ASSESSMENT: I will continue the current diagnosis and treatment plan. I will continue psychotropic medications the same. I reviewed medication issues with the patient. I did not go into detail as the patient did not seem to inclined to engage in the conversation. He seems to be making good progress and I would anticipate discharging the patient tomorrow. MMODL / PATRICIAN: [id number] /
[2021-08-11] MEDS: QUEtiapine 100 MG TAB PO SCH (20:22)
[2021-08-11] MEDS: MELATONIN 5 MG TABLET PO SCH (20:23)
[2021-08-12 06:23] VITALS: BP 127/66; PULSE 65; TEMP 97.4
[2021-08-12] MEDS: hydrOXYzine pamoate 25 MG CAP PO SCH (08:08)
[2021-08-12] MEDS: diphenhydrAMINE 50 MG CAP PO SCH (08:08)
[2021-08-12] MEDS: NICOTINE 21MG/24HR PATCH TRANSDERM SCH (09:50)
--- NOTE | 2021-08-12 11:28 | P.DS ---
Providers Date of admission: 08/06/21 18:51 Expected date of discharge: 08/12/21 Attending physician: Jose G Son MD Consults: 08/06/21 20:01 Consult Physician Routine Consulting Provider: Moris Schumacher Consult Reason/Comments: medical management Do you want consulting provider notified?: Yes Primary care physician: Moris Schumacher - Discharge Diagnosis(es) (1) Schizophrenia, chronic with acute exacerbation Current Visit: Yes Status: Acute Priority: High (2) Cannabis abuse Current Visit: Yes Status: Acute Priority: Medium Hospital Course: Admission HPI: Admission note was completed by Dr. Fernandez "the patient is a 30-year-old male. He lives with his mother. He presented to the ED on a pickup order for noncompliance of medications. The patient has had 1 prior psychiatric hospitalization this year in November and 3 hospitalizations in this facility last year. In November he was admitted to this unit on a petition for involuntary hospitalization. He had disorganized behavior. He was getting into significant agitation where he was yelling about Manolo and Satan. He believes that everyone was going to hurt him. He was also making threats to kill his brother, himself and police. He was having auditory hallucinations. He has been followed by [facility]. He is on Prolixin Decanoate 25 mg IM with his last dose being on 07/12/2021. He also is on Seroquel 100 mg at bedtime. He missed his appointments at [facility] in the last 2 weeks. He says usually he goes on a weekly basis. He will has been reluctant to take medications, stating that they are too sedating and they make him feel like a zombie. He says that his brother also states that they seem to make him feel that way. He was vague about any other issues or symptoms he might be having currently. She did make some suggestions that he was having difficulty with his muscles and suggested he may be having tremors, though he was not clear with details. He was not able to provide any information about circumstances over the last few weeks. It is noted that his urine drug screen is positive for marijuana as the only abuse of substances. In addition it is noted that he has not been sleeping well of late. He is admitted for further evaluation." Hospital course: Upon admission to the unit patient was directable and agreeable to commence treatment and signed adult voluntary form . Patient got along well with other patients on the unit and followed unit protocol. Patient was compliant with the medications and denied any side effects throughout hospital course. Patient was started on back on his Prolixin Decanoate IM injections and received 25 mg IM dose on 08/09 and will be due for his next dose on 08/23. Patient was also restarted back on his home dose of Seroquel 100 mg daily at bedtime. Patient was restarted back on Vistaril 50 mg twice a day when necessary for anxiety. He is also started on Benadryl 50 mg twice a day for a rash. Patient was also started on melatonin 5 mg daily at bedtime for sleep. Patient spoke of his stressors and engaged in therapy both group and individual. Patient was also seen by medical team for history and physical exam. Throughout the course of the hospitalization patient gradually improved with regards to mood, psychosis, anxiety, sleep and returned back to their baseline level of functioning. On the day of discharge patient denied any suicidal or homicidal ideations intent or plan denied any auditory or visual hallucinations. Patient endorsed wanting to live for his future The patient denied any access to guns or weapons. Patient denied any paranoia and did not endorse any delusions. Patient does have a significant history of substance abuse and was counseled on abstaining from all substances including alcohol and marijuana. Patient was also counseled on the medications and need for regular compliance and was encouraged to follow-up with their outpatient appointment for mental health and also for primary care. Prior to discharge a family meeting will be arranged by social worker psychiatric to answer any questions and ensure safety upon discharge. Patient is part of the next step program with [facility] will be continue to follow along with some and receive his medications through them. Mental status exam: General Appearance: Patient appears to have long hair, wearing glasses, zapata, older than stated age is alert, and cooperative. Patient is in no acute distress and has improved hygiene and grooming Behavior: Patient is calmly seated without any agitated behavior. Speech: Patient's speech is fluent and nonpressured. Mood/Affect: Patient reports their mood is "ok", affect is congruent Suicidality/Homicidality: Patient denies having any suicidal or homicidal ideation intent or plan. Perceptions: Patient denies any auditory or visual hallucinations. Though content/process: There is no evidence of any delusional thought content and thought process is linear and goal-directed. Memory and concentration: AOX3, grossly intact for the purposes of this session. Can spell "WORLD" backwards correctly. Judgment and insight: chronically poor, however has improved with guarded prog nosis Impression: Schizophrenia chronic with acute exacerbation Cannabis use disorder Plan: -Continue with discharge today as patient has improved and stabilized psychiatrically and is not currently an imminent threat to himself and/or others. Patient will remain at chronically elevated risk for harm to self and/or others due to his chronically poor insight and judgment. -Continue medications: Prolixin Decanoate 25 mg IM every 2 weeks, last dose given on 08/09 and next dose will be given on 08/23. Vistaril 50 mg twice a day when necessary for anxiety, Seroquel 100 mg daily at bedtime for insomnia/mood stabilization. -Patient was counseled on the need for medication compliance and appropriate follow-up at mental health and also primary care for medical issues. Patient verbalized understanding and agreed. -Social work to arrange for and conduct family meeting to ensure safety upon discharge and answer any questions/concerns. Social work also to arrange for patients follow up appointments with [facility] for psychiatric care along with follow up with primary care provider. -Patient counseled on abstaining from recreational drugs and marijuana and alcohol. Was informed/educated on the adverse effects on their physical and mental health. Patient verbally agreed and understood. -Patient was instructed to return to the hospital or seek immediate medical care if their psychiatric or medical symptoms do worsen or reoccur. Allergies Allergy/AdvReac Type Severity Reaction Status Date / Time No Known Allergies Allergy Verified 08/07/21 00:20 Laboratory Results WBC 9.1 k/uL (3.8-10.6) 08/07/21 06:38 RBC 4.60 m/uL (4.30-5.90) 08/07/21 06:38 Hgb 14.8 gm/dL (13.0-17.5) 08/07/21 06:38 Hct 44.8 % (39.0-53.0) 08/07/21 06:38 MCV 97.5 fL (80.0-100.0) 08/07/21 06:38 MCH 32.2 pg (25.0-35.0) 08/07/21 06:38 MCHC 33.0 g/dL (31.0-37.0) 08/07/21 06:38 RDW 12.1 % (11.5-15.5) 08/07/21 06:38 Plt Count 246 k/uL (150-450) 08/07/21 06:38 MPV 7.8 08/07/21 06:38 Neutrophils % 62 % 08/07/21 06:38 Lymphocytes % 26 % 08/07/21 06:38 Monocytes % 6 % 08/07/21 06:38 Eosinophils % 4 % 08/07/21 06:38 Basophils % 0 % 08/07/21 06:38 Neutrophils # 5.6 k/uL (1.3-7.7) 08/07/21 06:38 Lymphocytes # 2.3 k/uL (1.0-4.8) 08/07/21 06:38 Monocytes # 0.6 k/uL (0-1.0) 08/07/21 06:38 Eosinophils # 0.4 k/uL (0-0.7) 08/07/21 06:38 Basophils # 0.0 k/uL (0-0.2) 08/07/21 06:38 Sodium 139 mmol/L (137-145) 08/07/21 06:38 Potassium 4.3 mmol/L (3.5-5.1) 08/07/21 06:38 Chloride 105 mmol/L (98-107) 08/07/21 06:38 Carbon Dioxide 25 mmol/L (22-30) 08/07/21 06:38 Anion Gap 9 mmol/L 08/07/21 06:38 BUN 11 mg/dL (9-20) 08/07/21 06:38 Creatinine 0.91 mg/dL (0.66-1.25) 08/07/21 06:38 Est GFR (CKD-EPI)AfAm >90 (>60 ml/min/1.73 sqM) 08/07/21 06:38 Est GFR (CKD-EPI)NonAf >90 (>60 ml/min/1.73 sqM) 08/07/21 06:38 Glucose 83 mg/dL (74-99) 08/07/21 06:[address] Glu mg/dL 94 08/07/21 06:38 Hemoglobin A1c 4.9 % (4.0-6.0) 08/07/21 06:38 Calcium 9.5 mg/dL (8.4-10.2) 08/07/21 06:38 Total Bilirubin 0.6 mg/dL (0.2-1.3) 08/07/21 06:38 AST 29 U/L (17-59) 08/07/21 06:38 ALT 28 U/L (4-49) 08/07/21 06:38 Alkaline Phosphatase 45 U/L (38-126) 08/07/21 06:38 Total Protein 6.6 g/dL (6.3-8.2) 08/07/21 06:38 Albumin 3.8 g/dL (3.5-5.0) 08/07/21 06:38 TSH 2.260 mIU/L (0.465-4.680) 08/07/21 06:38 Urine Color Colorless 08/06/21 12:02 Urine Appearance Clear (Clear) 08/06/21 12:02 Urine pH 7.0 (5.0-8.0) 08/06/21 12:02 Ur Specific [place] 1.004 (1.001-1.035) 08/06/21 12:02 Urine Protein Negative (Negative) 08/06/21 12:02 Urine Glucose (UA) Negative (Negative) 08/06/21 12:02 Urine Ketones Negative (Negative) 08/06/21 12:02 Urine Blood Negative (Negative) 08/06/21 12:02 Urine Nitrite Negative (Negative) 08/06/21 12:02 Urine Bilirubin Negative (Negative) 08/06/21 12:02 Urine Urobilinogen <2.0 mg/dL (<2.0) 08/06/21 12:02 Ur Leukocyte Esterase Negative (Negative) 08/06/21 12:02 Urine Opiates Screen Not Detected (NotDetected) 08/06/21 12:20 Ur Oxycodone Screen Not Detected (NotDetected) 08/06/21 12:20 Urine Methadone Screen Not Detected (NotDetected) 08/06/21 12:20 Ur Propoxyphene Screen Not Detected (NotDetected) 08/06/21 12:20 Ur Barbiturates Screen Not Detected (NotDetected) 08/06/21 12:20 U Tricyclic Antidepress Not Detected (NotDetected) 08/06/21 12:20 Ur Phencyclidine Scrn Not Detected (NotDetected) 08/06/21 12:20 Ur Amphetamines Screen Not Detected (NotDetected) 08/06/21 12:20 U Methamphetamines Scrn Not Detected (NotDetected) 08/06/21 12:20 U Benzodiazepines Scrn Not Detected (NotDetected) 08/06/21 12:20 Urine Cocaine Screen Not Detected (NotDetected) 08/06/21 12:20 U Marijuana (THC) Screen Detected (NotDetected) H 08/06/21 12:20 Coronavirus (PCR) Not Detected (Not Detectd) 08/06/21 16:31 Vital Signs Temp 97.4 F L 08/12/21 06:22 Pulse 65 08/12/21 06:22 Resp 15 08/12/21 06:22 BP 127/66 08/12/21 06:22 Pulse Ox 98 08/06/21 21:52 Patient Condition at Discharge: Stable Plan - Discharge Summary Discharge Rx Participant: No New Discharge Prescriptions: New diphenhydrAMINE [Benadryl] 50 mg PO BID 30 Days cap Nicotine 21Mg/24Hr Patch [Habitrol] 1 patch TRANSDERM DAILY 14 Days patch QUEtiapine [SEROquel] 100 mg PO HS 30 Days tab hydrOXYzine pamoate [Vistaril] 50 mg PO BID PRN 30 Days cap PRN Reason: Anxiety Changed Melatonin 5 mg PO HS 30 Days tab fluPHENAZine decanoate [Prolixin Decanoate] 25 mg IM Q14D #1 ml Discontinued QUEtiapine [SEROquel] 100 mg PO HS Benztropine Mesylate [Cogentin] 2 mg PO Q12H 12 Days #24 tablet hydrOXYzine pamoate [Vistaril] 50 mg PO TID PRN PRN Reason: Anxiety Discharge Medication List Melatonin 5 mg PO HS 30 Days tab 08/12/21 [Rx] Nicotine 21Mg/24Hr Patch [Habitrol] 1 patch TRANSDERM DAILY 14 Days patch 08/12/21 [Rx] QUEtiapine [SEROquel] 100 mg PO HS 30 Days tab 08/12/21 [Rx] diphenhydrAMINE [Benadryl] 50 mg PO BID 30 Days cap 08/12/21 [Rx] fluPHENAZine decanoate [Prolixin Decanoate] 25 mg IM Q14D #1 ml 08/12/21 [Rx] hydrOXYzine pamoate [Vistaril] 50 mg PO BID PRN 30 Days cap 08/12/21 [Rx] Follow up Appointment(s)/Referral(s): [facility] [Outside] - 08/16/21 2:30 pm (08-16 @ 2:30 to 3:30 w/ Karena 08-17 @ 2:00 to 2:30 w/ Joyce Steiner) Moris Schumacher MD [Primary Care Provider] - 1-2 days Activity/Diet/Wound Care/Special Instructions: Activity and diet as tolerated. Avoid the use of street drugs and alcohol. Take all medications as prescribed. When you are in need of refills on your medications please contact your medical provider and/or outpatient psychiatrist to have this done. Please go to scheduled outpatient appointment for aftercare treatment. If symptoms return or become worse, call the crisis line at and/or go to the nearest emergency room for evaluation. Discharge Disposition: HOME SELF-CARE
== END 2021-08-12 13:40 | disposition home or self-care (01) | DRG 885 ==
LOC: EC 11:51 → UNDOADMIN 13:13 → 3MHU 13:13
PROVIDERS: ADMIT Psychiatry & Neurology Psychiatry; ATTEND Psychiatry & Neurology Psychiatry
DX: F20.9 Schizophrenia, unspecified (principal); Z91.128 Patient's intentional underdosing of medication regimen for other reason; B86 Scabies; F12.10 Cannabis abuse, uncomplicated; F41.9 Anxiety disorder, unspecified; Z20.822 Contact with and (suspected) exposure to COVID-19; G47.00 Insomnia, unspecified; F90.9 Attention-deficit hyperactivity disorder, unspecified type; T50.916A Underdosing of multiple unspecified drugs, medicaments and biological substances, initial encounter; F17.210 Nicotine dependence, cigarettes, uncomplicated; Z71.6 Tobacco abuse counseling; Z91.19 Patient's noncompliance with other medical treatment and regimen; Z79.899 Other long term (current) drug therapy; Y63.6 Underdosing and nonadministration of necessary drug, medicament or biological substance
CPT/HCPCS: 80053; 80306; 81003; 82075; 83036; 84443; 85025; 87635; 99285

== ENCOUNTER 2022-10-20 08:24 | Emergency (ER) | payer OTHER ==
[2022-10-20 08:36] VITALS: RESP 18
[2022-10-20] MEDS ORDERED: SODIUM CHLORIDE 0.9% 1,000 ML IV STA (08:48)
[2022-10-20] MEDS ORDERED: MORPHINE SULFATE 4 MG/ML SYRINGE IVP STA (08:48)
--- NOTE | 2022-10-20 10:57 | ED ---
Abdominal Pain HPI - General Chief Complaint: Abdominal Pain Stated Complaint: Abd pain Time Seen by Provider: 10/20/22 08:42 Source: patient Mode of arrival: ambulatory Limitations: no limitations - History of Present Illness Initial Comments: Patient is a 31-year-old male presenting to the emergency room with complaints of right upper quadrant pain ongoing for approximately 3 days with some nausea without any vomiting. He denies any aggravating or alleviating factors. He denies any diarrhea or changes in bowel movements. He denies any chest pain, shortness of breath, weakness, lethargy, fevers or chills. His only past medical history includes diagnosis is for cannabis misuse, schizoaffective disorder, and major depressive disorder. - Related Data Home Medications Medication Instructions Recorded Confirmed QUEtiapine FUMARATE 150 mg PO HS 10/27/22 10/27/22 Allergies Allergy/AdvReac Type Severity Reaction Status Date / Time No Known Allergies Allergy Verified 10/28/22 02:44 Review of Systems ROS Statement: Those systems with pertinent positive or pertinent negative responses have been documented in the HPI. ROS Other: All systems not noted in ROS Statement are negative. Past Medical History Past Medical History: No Reported History History of Any Multi-Drug Resistant Organisms: None Reported Past Surgical History: Orthopedic Surgery Additional Past Surgical History / Comment(s): right arm, Past Psychological History: ADD/ADHD, Anxiety, Depression Smoking Status: Current every day smoker Past Alcohol Use History: None Reported Past Drug Use History: Marijuana General Exam - General Exam Comments Initial Comments: GENERAL: No acute distress, well developed, well nourished. HEENT: Normocephalic, atraumatic. Pupils equal, round, reactive to light. Moist mucous membranes. LUNGS: No respiratory distress. Clear to auscultation, no adventitious sounds, no use of accessory muscles. HEART: Regular rate and rhythm without murmur, rub, or gallop. ABDOMEN: Normal bowel sounds. Soft, non-distended. Right upper quadrant tenderness. EXTREMITIES: No edema. No tenderness. Moves all extremities. NEUROLOGIC: Alert & oriented x 3. CN II-XII grossly intact. PSYCHIATRIC: Normal affect and behavior. DERMATOLOGIC: Multiple bites with scratches noted throughout upper and lower e xtremities along with hairline. Bedbugs identified by nurse to have decontamination shower completed. Limitations: no limitations Course Vital Signs 10/20/22 10/20/22 08:33 11:44 Temperature 97.9 F 98.3 F Pulse Rate 111 H 105 H Respiratory 18 18 Rate Blood Pressure 148/95 141/89 O2 Sat by Pulse 100 98 Oximetry Medical Decision Making - Medical Decision Making Was pt. sent in by a medical professional or institution (, DOROTEO, HAND CUTTER APPRENTICE, urgent care, hospital, or fdc...) When possible be specific @ -No Did you speak to anyone other than the patient for history (EMS, parent, family, police, friend...)? What history was obtained from this source @ -No Did you review nursing and triage notes (agree or disagree)? Why? @ -I reviewed and agree with nursing and triage notes Were old charts reviewed (outside hosp., previous admission, EMS record, old EKG, old radiological studies, urgent care reports/EKG's, fdc records)? Report findings @ -No old charts were reviewed Differential Diagnosis (chest pain, altered mental status, abdominal pain women, abdominal pain men, vaginal bleeding, weakness, fever, dyspnea, syncope, headache, dizziness, GI bleed, back pain, seizure, CVA, palpatations, mental health)? @ -Differential Abdominal Pain Men: Appendicitis, cholecystitis, diverticulosis, ischemic bowel, pancreatitis, hepatitis, UTI, gastroenteritis, AAA, incarcerated hernia, bowel obstruction, constipation, inflammatory bowel, hepatitis, peptic ulcer disease, splenic infarction, perforated viscus, testicular torsion, this is not meant to be an all-inclusive list EKG interpreted by me (3pts min.). @ -None done X-rays interpreted by me (1pt min.). @ -None done CT interpreted by me (1pt min.). @ -None done U/S interpreted by me (1pt. min.). @ -Report reviewed, image not interpreted by me. What testing was considered but not performed or refused? (CT, X-rays, U/S, labs)? Why? @ -None What meds were considered but not given or refused? Why? @ -None Did you discuss the management of the patient with other professionals (professionals i.e. DOROTEO Barros, HAND CUTTER APPRENTICE, lab, RT, psych nurse, social secretary, carroting machine operator, te acher, jail officer, insurance case manager)? Give summary @ -No Was smoking cessation discussed for >3mins.? @ -No Was critical care preformed (if so, how long)? @ -No Were there social determinants of health that impacted care today? How? (Homelessness, low income, unemployed, alcoholism, drug addiction, transportation, low edu. Level, literacy, decrease access to med. care, skilled nursing, rehab)? @ -No Was there de-escalation of care discussed even if they declined (Discuss DNR or withdrawal of care, Hospice)? DNR status @ -No What co-morbidities impacted this encounter? (DM, HTN, Smoking, COPD, CAD, Cancer, CVA, ARF, Chemo, Hep., AIDS, mental health diagnosis, sleep apnea, morbid obesity)? @ -None Was patient admitted / discharged? Hospital course, mention meds given and rou te, prescriptions, significant lab abnormalities, going to OR and other pertinent info. @ -31-year-old male presenting to the emergency room with complaints of right upper quadrant pain ongoing for 3 days with some intermittent nausea without vomiting. No other associated symptoms. Patient with bedbugs on exam, decontamination for bedbugs completed prior to workup regarding abdominal pain. IV fluid bolus and morphine for pain given. Workup for abdominal pain ordered with CBC, CMP and ultrasound of the gallbladder due to limited abdominal pain without other associated symptoms. CBC reveals slightly elevated neutrophils at 7.9 no other abnormalities. CMP unremarkable. Ultrasound of the right upper quadrant of the abdomen demonstrates no gallstones, common bile duct dilatation, hydronephrosis, renal masses or abnormalities to the liver per report by radiologist. Findings discussed with patient. No indication for further diagnostic imaging or laboratory studies. Pain improved after morphine and IV fluid bolus. Education regarding return parameters to the emergency room and treatment for bedbugs at home completed. Encouraged follow-up with primary care provider. Questions and concerns answered. Will discharge home in stable condition with symptomatic management for bedbugs bites and right upper quadrant pain. Undiagnosed new problem with uncertain prognosis? @ -No Drug Therapy requiring intensive monitoring for toxicity (Heparin, Nitro, Insulin, Cardizem)? @ -No Were any procedures done? @ -Decontamination for bedbugs Diagnosis/symptom? @ -Right upper quadrant pain Acute, or Chronic, or Acute on Chronic? @ -Acute Uncomplicated (without systemic symptoms) or Complicated (systemic symptoms)? @ -Uncomplicated Side effects of treatment? @ -No Exacerbation, Progression, or Severe Exacerbation? @ -No Poses a threat to life or bodily function? How? (Chest pain, USA, PA, pneumonia, PE, COPD, DKA, ARF, appy, cholecystitis, CVA, Diverticulitis, Homicidal, Suicidal, threat to staff... and all critical care pts) @ -No Diagnosis/symptom? @ -Bedbugs Acute, or Chronic, or Acute on Chronic? @ -Acute Uncomplicated (without systemic symptoms) or Complicated (systemic symptoms)? @ -Uncomplicated Side effects of treatment? @ -none Exacerbation, Progression, or Severe Exacerbation] @ -no Poses a threat to life or bodily function? @ -no Case discussed with Dr. Trivedi. - Lab Data Result diagrams: 10/20/22 10:36 10/20/22 10:36 Lab Results 10/20/22 10/20/22 Range/Units 10:36 10:36 WBC 9.8 (3.8-10.6) k/uL RBC 4.96 (4.30-5.90) m/uL Hgb 16.3 (13.0-17.5) gm/dL Hct 46.0 (39.0-53.0) % MCV 92.7 (80.0-100.0) fL MCH 32.9 (25.0-35.0) pg MCHC 35.5 (31.0-37.0) g/dL RDW 12.5 (11.5-15.5) % Plt Count 257 (150-450) k/uL MPV 8.3 Neutrophils % 80 % Lymphocytes % 11 % Monocytes % 6 % Eosinophils % 1 % Basophils % 1 % Neutrophils # 7.9 H (1.3-7.7) k/uL Lymphocytes # 1.0 (1.0-4.8) k/uL Monocytes # 0.6 (0-1.0) k/uL Eosinophils # 0.1 (0-0.7) k/uL Basophils # 0.1 (0-0.2) k/uL Sodium 139 (137-145) mmol/L Potassium 4.4 (3.5-5.1) mmol/L Chloride 104 (98-107) mmol/L Carbon Dioxide 26 (22-30) mmol/L Anion Gap 9 mmol/L BUN 10 (9-20) mg/dL Creatinine 0.85 (0.66-1.25) mg/dL Est GFR (CKD-EPI)AfAm >90 (>60 ml/min/1.73 sqM) Est GFR (CKD-EPI)NonAf >90 (>60 ml/min/1.73 sqM) Glucose 98 (74-99) mg/dL Calcium 9.9 (8.4-10.2) mg/dL Total Bilirubin 1.0 (0.2-1.3) mg/dL AST 28 (17-59) U/L ALT 35 (4-49) U/L Alkaline Phosphatase 57 (38-126) U/L Total Protein 7.9 (6.3-8.2) g/dL Albumin 4.7 (3.5-5.0) g/dL - Radiology Data Radiology results: report reviewed Disposition Clinical Impression: Bed bug bite, Right upper quadrant abdominal pain Disposition: HOME SELF-CARE Condition: Stable Instructions (If sedation given, give patient instructions): Abdominal Pain (ED), Bed Bugs (ED) Additional Instructions: It is recommended that you wash her clothing and bedding in hot water to further decontaminate her home from bedbugs. Utilize Tylenol or ibuprofen [id number] as needed for abdominal pain. Stay well hydrated. Please return to the Emergency Department if symptoms worsen or any other concerns. Is patient prescribed a controlled substance at d/c from ED?: No Referrals: Moris Schumacher MD [Primary Care Provider] - 1-2 days Time of Disposition: 12:01
[2022-10-20 11:15] LABS: Basophils # (A) 0.1 k/uL (0-0.2); Basophils % (A) 1 %; Eosinophils # (A) 0.1 k/uL (0-0.7); Eosinophils % (A) 1 %; HGB 16.3 gm/dL (13.0-17.5); Lymphocytes % (A) 11 %; MCH 32.9 pg (25.0-35.0); MCHC 35.5 g/dL (31.0-37.0); MCV 92.7 fL (80.0-100.0); Mean Platelet Volume 8.3; Monocytes # (A) 0.6 k/uL (0-1.0); Monocytes % (A) 6 %; Neutrophils # (A) 7.9 k/uL (1.3-7.7); Neutrophils % (A) 80 %; Platelet Count 257 k/uL (150-450); RBC 4.96 m/uL (4.30-5.90); RDW 12.5 % (11.5-15.5); WBC 9.8 k/uL (3.8-10.6)
[2022-10-20 11:18] LABS: ALT 35 U/L (4-49); AST 28 U/L (17-59); African American GFR (CKD) >90 (>60 ml/min/1.73 sqM); Albumin 4.7 g/dL (3.5-5.0); Alkaline Phosphatase 57 U/L (38-126); Anion Gap 9 mmol/L; Blood Urea Nitrogen 10 mg/dL (9-20); Calcium 9.9 mg/dL (8.4-10.2); Carbon Dioxide 26 mmol/L (22-30); Chloride 104 mmol/L (98-107); Glucose 98 mg/dL (74-99); Non-African American GFR(CKD) >90 (>60 ml/min/1.73 sqM); Potassium 4.4 mmol/L (3.5-5.1); Sodium 139 mmol/L (137-145); Total Protein 7.9 g/dL (6.3-8.2)
--- NOTE | 2022-10-20 11:37 | US ---
EXAMINATION TYPE: US gallbladder DATE OF EXAM: 10/20/2022 COMPARISON: NONE CLINICAL HISTORY: 31-year-old male RUQ pain. Pain TECHNIQUE: Multiple sonographic images of the right upper quadrant are obtained. FINDINGS: EXAM MEASUREMENTS: Liver Length: 13.6 cm Gallbladder Wall: .3 cm CBD: .4 cm Right Kidney: 10 x 4.9 x 4.8 cm Pancreas: Tail obscured by overlying bowel gas Liver: wnl Gallbladder: No stones seen Evidence for sonographic Chavez's sign: No CBD: wnl Right Kidney: No hydronephrosis or masses seen IMPRESSION: No gallstones or biliary ductal dilatation. Suboptimal visualization of the pancreas by ultrasound.
[2022-10-20 11:44] VITALS: BP 141/89; PULSE 105; TEMP 98.3
== END 2022-10-20 12:23 | disposition home or self-care (01) ==
LOC: EC 08:24
DX: R10.11 Right upper quadrant pain (principal); F90.9 Attention-deficit hyperactivity disorder, unspecified type; F41.9 Anxiety disorder, unspecified; F32.A Depression, unspecified; F12.90 Cannabis use, unspecified, uncomplicated; F17.200 Nicotine dependence, unspecified, uncomplicated; W57.XXXA Bitten or stung by nonvenomous insect and other nonvenomous arthropods, initial encounter
CPT/HCPCS: 36415; 80053; 85025; 76705; 99284; 96374; 96361; J2270

== ENCOUNTER 2022-10-27 15:38 | Inpatient (IN) | payer MEDICAID, OTHER ==
--- NOTE | 2022-10-27 17:33 | ED ---
Psych HPI - General Chief Complaint: Psychiatric Symptoms Stated Complaint: Psych Eval Time Seen by Provider: 10/27/22 17:12 Source: patient, RN notes reviewed, Caregiver ([facility] worker) Mode of arrival: ambulatory - History of Present Illness Initial Comments: 31-year-old disheveled male presents to the emergency room with [facility] mental health worker with complaints of auditory hallucinations. Patient states he is taking Seroquel as prescribed. Does smoke marijuana and cigarettes daily. Denies any alcohol or other drug use. He denies any pain or discomfort at this time. He denies any homicidal or suicidal ideations. He lives with his parents and siblings per [facility]. MD Complaint: other (Hearing voices) -: days(s) Associated Psychiatric Symptoms: auditory hallucinations History of same: Yes Quality: constant Associated Symptoms: denies other symptoms - Related Data Home Medications Medication Instructions Recorded Confirmed QUEtiapine FUMARATE 150 mg PO HS 10/27/22 10/27/22 Allergies Allergy/AdvReac Type Severity Reaction Status Date / Time No Known Allergies Allergy Verified 10/27/22 18:20 Review of Systems ROS Statement: Those systems with pertinent positive or pertinent negative responses have been documented in the HPI. ROS Other: All systems not noted in ROS Statement are negative. Past Medical History Past Medical History: No Reported History History of Any Multi-Drug Resistant Organisms: None Reported Past Surgical History: Orthopedic Surgery Additional Past Surgical History / Comment(s): right arm, Past Psychological History: ADD/ADHD, Anxiety, Depression Smoking Status: Current every day smoker Past Alcohol Use History: None Reported Past Drug Use History: Marijuana General Exam Limitations: no limitations General appearance: alert, in no apparent distress Head exam: Present: atraumatic Eye exam: Absent: scleral icterus, conjunctival injection, periorbital swelling ENT exam: Present: mucous membranes moist Neck exam: Absent: tenderness, meningismus Respiratory exam: Present: normal lung sounds bilaterally. Absent: respiratory distress, accessory muscle use Cardiovascular Exam: Present: regular rate GI/Abdominal exam: Present: soft. Absent: distended, tenderness, rigid Extremities exam: Present: normal capillary refill. Absent: pedal edema Neurological exam: Present: alert Psychiatric exam: Present: normal affect, normal mood. Absent: agitated, anxious, manic, homicidal ideation, suicidal ideation Expanded Focused psych exam: Absent: pressured speech, restlessness Skin exam: Present: warm, dry. Absent: cyanosis, diaphoretic, pallor, mottled Course Vital Signs 10/27/22 16:16 Temperature 98.9 F Pulse Rate 100 Respiratory 20 Rate Blood Pressure 133/81 O2 Sat by Pulse 98 Oximetry Medical Decision Making - Medical Decision Making Per EPS nurse, patient has a court order and is a voluntary admit for depression. Was pt. sent in by a medical professional or institution? @ -Community mental health staff Did you speak to anyone other than the patient for history? @ -[facility] at bedside Did you review nursing and triage notes? @ -Yes I agree Were old charts reviewed? @ -Yes mental health records Differential Diagnosis? @ -Depression, suicidal ideation, homicidal ideation, schizophrenia, alcohol or drug intoxication What testing was considered but not performed? (CT, X-rays, U/S, labs)? Why? @None What meds were considered but not given? Why? @ -None Did you discuss the management of the patient with other professionals? @ -Psych nurse Did you reconcile home meds? @ -No Was smoking cessation discussed for >3mins.? @ -Yes Was critical care preformed (if so, how long)? @ -No Were there social determinants of health that impacted care today? How? (Homelessness, low income, unemployed, alcoholism, drug addiction, transportation, low edu. Level, literacy, decrease access to med. care, nursing home, rehab)? @ -Mental health Was there de-escalation of care discussed even if they declined? (Discuss DNR or withdrawal of care, Hospice)? @ -No What co-morbidities impacted this encounter? (DM, HTN, Smoking, COPD, CAD, Cancer, CVA, Hep., AIDS, mental health diagnosis, sleep apnea, morbid obesity)? @ -Schizoaffective, anxiety, depression Was patient admitted / discharged? @ -Admitted Undiagnosed new problem with uncertain prognosis? @ -[none] Drug Therapy requiring intensive monitoring for toxicity (Heparin, Nitro, Insulin, Cardizem)? @ -No Were any procedures done? @ -No Diagnosis/symptom? @ -Schizoaffective disorder, anxiety Acute, or Chronic, or Acute on Chronic? @ -And chronic Uncomplicated (without systemic symptoms) or Complicated (systemic symptoms)? @ -[default] Side effects of treatment? @ -[none] Exacerbation, Progression, or Severe Exacerbation] @ -[no] Poses a threat to life or bodily function? @ -[no] Disposition Clinical Impression: Depression Disposition: ADMITTED IP TO THIS HOSP Referrals: Moris Schumacher MD [Primary Care Provider] - 1-2 days Decision Date: 10/27/22 Decision Time: 21:05
[2022-10-27] MEDS ORDERED: hydrOXYzine pamoate 25 MG CAP PO STA (19:03)
[2022-10-27] MEDS ORDERED: NICOTINE 21MG/24HR PATCH TRANSDERM STA (20:16)
[2022-10-27 22:27] LABS: Appearance,Urine Clear (Clear); Bilirubin,Urine Negative (Negative); Blood,Urine Negative (Negative); Color,Urine Yellow; Glucose,Urine (UA) Negative (Negative); Ketones,Urine Negative (Negative); Leukocyte Esterase,Urine Negative (Negative); Nitrite,Urine Negative (Negative); Protein,Urine Negative (Negative); Specific Gravity,Urine 1.012 (1.001-1.035)
[2022-10-27] MEDS ORDERED: ACETAMINOPHEN TAB 325 MG TAB PO PRN (22:42)
[2022-10-27] MEDS ORDERED: MAGNESIUM HYDROXIDE 2,400 MG/10 ML CUP PO PRN (22:42)
[2022-10-27] MEDS ORDERED: HALOPERIDOL LACTATE 5 MG/ML 1 ML VIAL IM PRN (22:42)
[2022-10-27] MEDS ORDERED: LORazepam 2 MG/ML INJ IM PRN (22:47)
[2022-10-27 23:25] LABS: Amphetamine Screen,Urine Not Detected (NotDetected); Barbiturate Screen,Urine Not Detected (NotDetected); Benzodiazepines Screen,Urine Not Detected (NotDetected); Cocaine Screen,Urine Not Detected (NotDetected); Methadone Screen, Urine Not Detected (NotDetected); Opiate Screen,Urine Not Detected (NotDetected); Oxycodone Screen, Urine Not Detected (NotDetected); Phencyclidine Screen,Urine Not Detected (NotDetected); Tricyclic Antidepressant,Urine Detected (NotDetected); Urn Cannabinoid Scrn Detected (NotDetected)
[2022-10-28] MEDS: LORazepam 1 MG TAB PO PRN ×2 (01:25→10:06)
[2022-10-28] MEDS: haloperidoL 5 MG TAB PO PRN (01:25)
[2022-10-28 08:13] LABS: Basophils % (A) 1 %; Eosinophils # (A) 0.5 k/uL (0-0.7); Eosinophils % (A) 6 %; HCT 45.8 % (39.0-53.0); HGB 15.4 gm/dL (13.0-17.5); Lymphocytes # (A) 1.5 k/uL (1.0-4.8); Lymphocytes % (A) 21 %; MCH 31.8 pg (25.0-35.0); MCHC 33.6 g/dL (31.0-37.0); MCV 94.7 fL (80.0-100.0); Mean Platelet Volume 8.1; Monocytes # (A) 0.4 k/uL (0-1.0); Monocytes % (A) 6 %; Neutrophils # (A) 4.7 k/uL (1.3-7.7); Neutrophils % (A) 64 %; Platelet Count 251 k/uL (150-450); RBC 4.83 m/uL (4.30-5.90); RDW 12.4 % (11.5-15.5); WBC 7.2 k/uL (3.8-10.6)
[2022-10-28 08:31] LABS: ALT 38 U/L (4-49); AST 22 U/L (17-59); African American GFR (CKD) >90 (>60 ml/min/1.73 sqM); Albumin 4.2 g/dL (3.5-5.0); Alkaline Phosphatase 42 U/L (38-126); Anion Gap 5 mmol/L; Blood Urea Nitrogen 11 mg/dL (9-20); Calcium 9.1 mg/dL (8.4-10.2); Carbon Dioxide 27 mmol/L (22-30); Chloride 107 mmol/L (98-107); Glucose 88 mg/dL (74-99); Non-African American GFR(CKD) >90 (>60 ml/min/1.73 sqM); Potassium 4.6 mmol/L (3.5-5.1); Sodium 139 mmol/L (137-145); Total Bilirubin 0.3 mg/dL (0.2-1.3)
[2022-10-28] MEDS ORDERED: NICOTINE 21MG/24HR PATCH TRANSDERM SCH (09:00)
[2022-10-28 11:53] VITALS: BMI 29.3
--- NOTE | 2022-10-28 13:41 | P.HP ---
Psychiatric H&P - . H&P Date: 10/28/22 History & Physical: Allergies Allergy/AdvReac Type Severity Reaction Status Date / Time No Known Allergies Allergy Verified 10/28/22 02:44 Vital Signs Temp 98.1 F 10/28/22 00:59 Pulse 87 10/28/22 00:59 Resp 18 10/28/22 00:59 BP 125/89 10/28/22 00:59 Pulse Ox 98 10/28/22 00:59 FiO2 Intake & Output 10/27/22 10/28/22 10/28/22 18:59 06:59 18:59 Weight 87.09 kg 87.6 kg 87.6 kg Laboratory Last Values WBC 7.2 k/uL (3.8-10.6) 10/28/22 07:52 RBC 4.83 m/uL (4.30-5.90) 10/28/22 07:52 Hgb 15.4 gm/dL (13.0-17.5) 10/28/22 07:52 Hct 45.8 % (39.0-53.0) 10/28/22 07:52 MCV 94.7 fL (80.0-100.0) 10/28/22 07:52 MCH 31.8 pg (25.0-35.0) 10/28/22 07:52 MCHC 33.6 g/dL (31.0-37.0) 10/28/22 07:52 RDW 12.4 % (11.5-15.5) 10/28/22 07:52 Plt Count 251 k/uL (150-450) 10/28/22 07:52 MPV 8.1 10/28/22 07:52 Neutrophils % 64 % 10/28/22 07:52 Lymphocytes % 21 % 10/28/22 07:52 Monocytes % 6 % 10/28/22 07:52 Eosinophils % 6 % 10/28/22 07:52 Basophils % 1 % 10/28/22 07:52 Neutrophils # 4.7 k/uL (1.3-7.7) 10/28/22 07:52 Lymphocytes # 1.5 k/uL (1.0-4.8) 10/28/22 07:52 Monocytes # 0.4 k/uL (0-1.0) 10/28/22 07:52 Eosinophils # 0.5 k/uL (0-0.7) 10/28/22 07:52 Basophils # 0.0 k/uL (0-0.2) 10/28/22 07:52 Sodium 139 mmol/L (137-145) 10/28/22 07:52 Potassium 4.6 mmol/L (3.5-5.1) 10/28/22 07:52 Chloride 107 mmol/L (98-107) 10/28/22 07:52 Carbon Dioxide 27 mmol/L (22-30) 10/28/22 07:52 Anion Gap 5 mmol/L 10/28/22 07:52 BUN 11 mg/dL (9-20) 10/28/22 07:52 Creatinine 0.96 mg/dL (0.66-1.25) 10/28/22 07:52 Est GFR (CKD-EPI)AfAm >90 (>60 ml/min/1.73 sqM) 10/28/22 07:52 Est GFR (CKD-EPI)NonAf >90 (>60 ml/min/1.73 sqM) 10/28/22 07:52 Glucose 88 mg/dL (74-99) 10/28/22 07:[address] Glu mg/dL 105 10/28/22 07:52 Hemoglobin A1c 5.3 % (0.0-6.0) 10/28/22 07:52 Calcium 9.1 mg/dL (8.4-10.2) 10/28/22 07:52 Total Bilirubin 0.3 mg/dL (0.2-1.3) 10/28/22 07:52 AST 22 U/L (17-59) 10/28/22 07:52 ALT 38 U/L (4-49) 10/28/22 07:52 Alkaline Phosphatase 42 U/L (38-126) 10/28/22 07:52 Total Protein 7.0 g/dL (6.3-8.2) 10/28/22 07:52 Albumin 4.2 g/dL (3.5-5.0) 10/28/22 07:52 TSH 4.130 mIU/L (0.465-4.680) 10/28/22 07:52 Urine Color Yellow 10/27/22 20:51 Urine Appearance Clear (Clear) 10/27/22 20:51 Urine pH 6.0 (5.0-8.0) 10/27/22 20:51 Ur Specific [place] 1.012 (1.001-1.035) 10/27/22 20:51 Urine Protein Negative (Negative) 10/27/22 20:51 Urine Glucose (UA) Negative (Negative) 10/27/22 20:51 Urine Ketones Negative (Negative) 10/27/22 20:51 Urine Blood Negative (Negative) 10/27/22 20:51 Urine Nitrite Negative (Negative) 10/27/22 20:51 Urine Bilirubin Negative (Negative) 10/27/22 20:51 Urine Urobilinogen 3.0 mg/dL (<2.0) 10/27/22 20:51 Ur Leukocyte Esterase Negative (Negative) 10/27/22 20:51 Urine Opiates Screen Not Detected (NotDetected) 10/27/22 20:51 Ur Oxycodone Screen Not Detected (NotDetected) 10/27/22 20:51 Urine Methadone Screen Not Detected (NotDetected) 10/27/22 20:51 Ur Propoxyphene Screen Not Detected (NotDetected) 10/27/22 20:51 Ur Barbiturates Screen Not Detected (NotDetected) 10/27/22 20:51 U Tricyclic Antidepress Detected (NotDetected) H 10/27/22 20:51 Ur Phencyclidine Scrn Not Detected (NotDetected) 10/27/22 20:51 Ur Amphetamines Screen Not Detected (NotDetected) 10/27/22 20:51 U Methamphetamines Scrn Not Detected (NotDetected) 10/27/22 20:51 U Benzodiazepines Scrn Not Detected (NotDetected) 10/27/22 20:51 Urine Cocaine Screen Not Detected (NotDetected) 10/27/22 20:51 U Marijuana (THC) Screen Detected (NotDetected) H 10/27/22 20:51 Coronavirus (PCR) Not Detected (Not Detectd) 10/27/22 20:51 10/28/22 13:41 IDENTIFYING DATA: Patient is a single, unemployed, 31-year-old male with significant history of schizophrenia and cannabis abuse who presented to our hospital on 10/27/2022 for psychosis. HPI: Patient presented to the hospital on 10/27/2022, brought into the hospital by [facility] staff for acute psychotic symptoms. As per [facility], the patient was witnessed rocking to himself, reporting that he did not take any medications for the past 6 months, sobbing, and responding to internal stimuli. The patient was noted to be scared of a voice in his head that God was trying to kill him. He is currently under a court order for mental health treatment until 04/27/2023. The patient was subsequently admitted on to the psychiatric unit. Upon evaluation on the psychiatric unit, the patient reports that he has been experiencing worsening psychotic symptoms over the past few months. He reports that he is constantly hearing voices that are often demeaning and commanding in nature. He reports that they constantly telling him "I'm a bitch rare, and that I will wake up blind." He also reports that he does not do as the voices tell him, that people's lives will be lost. He reports that the voices are ongoing and constant. Furthermore, the patient endorses visual hallucinations in the forms of lights and images. He describes these as "icons." The patient does r eport some scientology preoccupation. He feels as if he is letting down God. In regards to mood symptoms, the patient reports significant symptoms of depression. He reports that he has been having very little energy, poor sleep, poor hygiene and grooming, hopelessness, and helplessness. He does report suicidal ideation however denies any intention or plan. He reports homicidal ideation if "the voices tell me to." The patient was previously on a regimen of Prolixin Decanoate 25 mg IM every 2 weeks with his last IM injection being administered on 08/23/2021. He is currently only on a regimen of Seroquel XR 150 mg at bedtime. PAST PSYCHIATRIC HISTORY: Patient has previous diagnoses of schizophrenia and cannabis use disorder. The patient has been previously trialed on Invega, Prolixin, and Seroquel. The patient was last hospitalized on the psychiatric unit in July 2021. The patient is reportedly open with [facility] however has not been following up regularly. He denies any prior attempts at suicide. PMH: Past Medical History: No Reported History History of Any Multi-Drug Resistant Organisms: None Reported Past Surgical History: Orthopedic Surgery Additional Past Surgical History / Comment(s): right arm, Past Psychological History: ADD/ADHD, Anxiety, Depression Smoking Status: Current every day smoker Past Alcohol Use History: None Reported Past Drug Use History: Marijuana ALLERGIES: NO KNOWN DRUG ALLERGIES CHEMICAL DEPENDENCY HISTORY: The patient reports daily marijuana use. He reports smoking a pack per day of tobacco. He denies any illicit drug use FAMILY PSYCHIATRIC/SUBSTANCE USE HISTORY: No reported family psychiatric or substance use history. SOCIAL HISTORY: Patient was born and raised in [place], [place]. He attended some college. He is currently unemployed. He currently lives with his brother, father, and friend. He reports no scientology affiliation. MENTAL STATUS EXAM: General Appearance: Patient appears to be stated age is alert, directable, and attempts to cooperate. Patient appears to have very disheveled hygiene and grooming. Behavior: Patient is lying down in bed without any agitated behavior. Eye contact is intermittent. Speech: Patient's speech is fluent and nonpressured. Monotone. Mood/Affect: Patient reports their mood is "not good." Affect is flat. Suicidality/Homicidality: Patient reports he is homicidal thoughts voices tell him to. Suicidal ideations present. Perceptions: Patient endorses both auditory and visual hallucinations. Command type and demeaning auditory hallucinations. Though content/process: The patient is religiously preoccupied. Delusional thoughts of persecution. Memory and concentration: AOX3, grossly intact for the purposes of this session. Can spell "WORLD" backwards Judgment and insight: Fair STRENGTHS/WEAKNESSES: Strength is that the patient has fair insight. Weakness is that the patient is nonadherent with treatment. INTELLECT: average IMPRESSIONS: Schizoaffective disorder, depressive type Cannabis use disorder Tobacco use disorder PLAN: -Patient is admitted under voluntary status to [facility]HU for stabilization of psychiatric symptoms and safety. Patient is currently under court order for mental health treatment. -Medications : Will start patient on Prolixin 2.5 mg by mouth twice a day for schizoaffective disorder with plans to transition to a long-acting injectable Prolixin Decanoate. Seroquel 150 mg by mouth at bedtime for insomnia -Ativan and Haldol PRN for agitation/aggression -Patient was counselled on substance abuse and desired to cut back on use -Patient was informed of the risks, benefits and side effects of the medication and patient verbally consented to taking the medications. Patient signed med consent form and was placed in chart. -Internal Medicine consult to perform medical evaluation and physical. -NRT - nicotine patch -SW on board for discharge planning. Encourage patient to participate in groups to work on coping skills. 10/28/22 13:41
[2022-10-28] MEDS: NICOTINE 14MG/24HR PATCH TRANSDERM SCH (14:29)
[2022-10-28 16:17] LABS: Chol/HDL Ratio 3.87 Ratio; LDL Cholesterol,Calculated 77.8 mg/dL (0.0-131.0)
[2022-10-28] MEDS: MAG HYDROX/AL HYDROX/SIMETH 30 ML CUP PO PRN (20:41)
[2022-10-28] MEDS: QUEtiapine 50 MG TAB PO SCH (20:41)
[2022-10-29] MEDS: NICOTINE 14MG/24HR PATCH TRANSDERM SCH (09:36)
[2022-10-29] MEDS: NICOTINE GUM (POLACRILEX) 2 MG GUM BUCCAL PRN (19:00)
[2022-10-29] MEDS: LORazepam 1 MG TAB PO PRN (19:01)
--- NOTE | 2022-10-29 19:24 | CONS ---
CONSULTATION CHIEF COMPLAINT: Acute psychosis. HISTORY OF PRESENT ILLNESS: This is apparently another admission for this 31-year-old male. Difficult to get a history. He is very lethargic. He stated that he was "seeing things and hearing voices". He is admitted and is having an acute psychosis. He was just in the office a week ago. REVIEW OF SYSTEMS: Otherwise, unobtainable. Past medical history, family history, and personal and social histories are unremarkable. He is not known to be allergic to any medications and apparently was not taking any. PHYSICAL EXAMINATION: VITAL SIGNS: Blood pressure is 120/74 with a pulse of 62, respirations of 15. He is afebrile. GENERAL: Appeared to be big. SKIN: Color was normal. HEAD, EARS, AND NOSE: Appeared to be normal. CHEST: Clear CARDIAC: Normal. ABDOMEN: Soft. IMPRESSION: 1. Acute psychosis with depression. 2. Possible schizophrenia. PLAN: No change in treatment management at this time. Thank you respectfully, CASEY / PATRICIAN: [id number] /
--- NOTE | 2022-10-29 20:24 | P.PN ---
Subjective Progress Note Date: 10/29/22 Principal diagnosis: progress note he was seen today in his room but he refused to be assessed further. He preferred to be seclusive by himself and offered no further explanation. I reviewed his history; he may have going throgh double psychsois: Cannabis indcued psychosis aggrevating his schizophrenia. I have yet to communciate with the referral source to see if he belongs to the dual diagnosis. He seeeed to be compliant with the medicaiton: negartive symptoms apathy social withdrawal overty of speech are prominent Diag: Schizophrenia in relapse, Comorbid Cannabis use disorder. cannabis psychosis. rule out MDMA MDA germán disorder, Nicotine dependence MSE: He was highly withdrawn and didnot communicate much. he was alert and choose [place] confined to his room. His affect was highlyguarded congruenet with thought content. Paranoid ideas of refernece cannot be ruled out as he did not talk much. No active hallucinations or delusions ascertained at the interview. Thought content and process; Unable to assess reliably. No suicidal or homicidal ideations. Cog; Oriented sensorium intact absent insight and judgment management 1. reassess pt tomorrow.2. more data from the referral sources and from his housing . 3. engage pt towards Substnace use disorder; psychoedu cational and MET sessions 4. discharge plan he may be a [facility] client and communicate with [facility] [employer]. Family support seemed to be absent. Objective - Vital Signs Vital signs: Vital Signs Temp 97.5 F L 10/28/22 22:42 Pulse 125 H 10/29/22 19:03 Resp 17 10/28/22 22:42 BP 141/89 10/29/22 19:03 Pulse Ox 94 L 10/28/22 22:42 FiO2 - Labs CBC & Chem 7: 10/28/22 07:52 10/28/22 07:52
[2022-10-29] MEDS: QUEtiapine 50 MG TAB PO SCH (21:16)
[2022-10-30] MEDS: NICOTINE 14MG/24HR PATCH TRANSDERM SCH (09:11)
[2022-10-30] MEDS: LORazepam 1 MG TAB PO PRN (16:16)
[2022-10-30] MEDS: haloperidoL 5 MG TAB PO PRN (16:17)
[2022-10-30] MEDS: NICOTINE GUM (POLACRILEX) 2 MG GUM BUCCAL PRN (18:56)
[2022-10-30] MEDS: QUEtiapine 50 MG TAB PO SCH (20:09)
[2022-10-30] MEDS: MIRTAZAPINE 15 MG TAB PO SCH (20:10)
--- NOTE | 2022-10-30 20:34 | P.PN ---
Subjective Progress Note Date: 10/30/22 Principal diagnosis: Progress He contined to be withdrawn and unwilling to be considered for further Tx regarding his dual disorder. He was denying he ever have mental disorder. He was puzzled as to why he was admitted. He was bluned and guarded in affect with constrcited range. Paranoid idea of reference was apparent. He was not confused. Cog; Impaired insight. Sub: He was bewildered and exhibtied poverty of content of speeech. No significant improvement He would be ready for Rx reassessment by early nexxt week. Dig; Schizoaffective Disorder, Cannabis disorder. Management: He woulf fulfil criteria of inpatient admission. Team meeting to discuss th enext [facility] Rx would be necessay collateral data to conform his psychotic disorder. Housing stability as he was unable to provide reliable data as to his residence and social network Objective - Vital Signs Vital signs: Vital Signs Temp 97.5 F L 10/28/22 22:42 Pulse 125 H 10/29/22 19:03 Resp 17 10/28/22 22:42 BP 141/89 10/29/22 19:03 Pulse Ox 94 L 10/28/22 22:42 FiO2 - Labs CBC & Chem 7: 10/28/22 07:52 10/28/22 07:52
[2022-10-31] MEDS: NICOTINE 14MG/24HR PATCH TRANSDERM SCH (09:40)
[2022-10-31] MEDS: LORazepam 1 MG TAB PO PRN (09:42)
[2022-10-31] MEDS: NICOTINE GUM (POLACRILEX) 2 MG GUM BUCCAL PRN ×2 (11:29→21:03)
[2022-10-31] MEDS: MAG HYDROX/AL HYDROX/SIMETH 30 ML CUP PO PRN ×2 (11:29→16:23)
--- NOTE | 2022-10-31 11:44 | P.PN ---
Progress Note - Text Progress Note Date: 10/31/22 Interval History: Patient was seen wandering the hallways and was directable and agreeable to speak with sheet writer in the office. The patient reports he is feeling a little better. He is currently not reporting any suicidal or homicidal ideation, intention, and/or plan. He reports that his auditory hallucinations have decreased since restarting his medications. He denies any paranoia or other delusional thought content today but does acknowledge he was roman catholic preoccupied and concerned about demons when he was first admitted. He has been adherent with his medications and is not endorsing any side effect. Patient does not report any side effects of his medication. He denies any medical issues or concerns. Mental Status Exam: General Appearance: Patient appears to be stated age is alert, directable, and cooperative. Disheveled. Behavior: Patient is calmly seated without any agitated behavior. Eye contact is fair. Speech: Patient's speech is fluent and nonpressured. Monotone. Nonspontaneous. Mood/Affect: Mood is improving mildly, affect is congruent and flat. Suicidality/Homicidality: Patient denies having any suicidal or homicidal ideation intent or plan. Perceptions: Patient denies any visual hallucinations and denies any auditory hallucinations Though content/process: Less delusinoal thought content endorsed today. Some poverty of thought. Memory and concentration: AOX3, grossly intact for the purposes of this session Judgment and insight: Improving mildly Vital Signs Temp 98 F 10/31/22 06:25 Pulse 122 H 10/31/22 09:44 Resp 14 10/31/22 06:25 BP 128/84 10/31/22 09:44 Pulse Ox 97 10/31/22 06:25 FiO2 Assessment Schizoaffective disorder, depressive type Cannabis use disorder Tobacco use disorder Plan: -Patient continues to meet criteria for inpatient psychiatric admission for symptom stabilization and safety. Patient has signed adult voluntary form and medication consent and was placed in patient's chart. -Medications: Increase Prolixin to 3 mg twice daily for psychosis - Plan to transition to BRENNAN Prolixin Dec prior to discharge. Continue Seroquel 150 mg at bedtime for psychosis -When necessary Ativan and Haldol for agitation/aggression. -NRT - nicotine patch/gum -SW on board for discharge planning. Encouraged the patient to participate in milieu.
[2022-10-31] MEDS: MIRTAZAPINE 15 MG TAB PO SCH (21:03)
[2022-10-31] MEDS: QUEtiapine 50 MG TAB PO SCH (21:03)
[2022-11-01] MEDS: NICOTINE 14MG/24HR PATCH TRANSDERM SCH (07:14)
[2022-11-01] MEDS: NICOTINE GUM (POLACRILEX) 2 MG GUM BUCCAL PRN ×2 (09:06→17:41)
--- NOTE | 2022-11-01 13:31 | P.PN ---
Progress Note - Text Progress Note Date: 11/01/22 Interval History: Patient was seen resting in bed and was directable and agreeable to speak with magnetic tape typewriter operator in his room. The patient displays significant thought blocking today. However, when speaking, the patient does endorse bizarre delusional thought content. He reports that he has been "thinking about everything and how that everything has been messing up with my consciousness." He furthermore endorses auditory hallucinations however describes this as "hearing intentions and other things from people." He is not endorsing any visual hallucinations. He continues to be in agreement with the plan to transition to Prolixin decanoate. He has been adherent with his medication is not endorsing any significant side effects. Mental Status Exam: General Appearance: Patient appears to be stated age is alert, directable, and cooperative. Disheveled. Behavior: Patient is calmly seated without any agitated behavior. Eye contact is fair. Speech: Patient's speech is fluent and nonpressured. Monotone. Nonspontaneous. Mood/Affect: Mood is improving mildly, affect is congruent and flat. Suicidality/Homicidality: Patient denies having any suicidal or homicidal ideation intent or plan. Perceptions: Patient denies any visual hallucinations however endorses auditory hallucinations. Though content/process: Patient is endorsing numerous delusional beliefs and thoughts today. Memory and concentration: AOX3, grossly intact for the purposes of this session Judgment and insight: Improving mildly Vital Signs Temp 97.3 F L 11/01/22 06:30 Pulse 88 11/01/22 06:30 Resp 19 11/01/22 06:30 BP 119/57 11/01/22 06:30 Pulse Ox 98 11/01/22 06:30 FiO2 Assessment Schizoaffective disorder, depressive type Cannabis use disorder Tobacco use disorder Plan: -Patient continues to meet criteria for inpatient psychiatric admission for symptom stabilization and safety. Patient has signed adult voluntary form and medication consent and was placed in patient's chart. -Medications: Increase Prolixin to 5 mg twice daily for psychosis - Plan to transition to BRENNAN Prolixin decanoate tomorrow. Decrease Seroquel to 100 mg by mouth at bedtime for psychosis Discontinue Remeron due to concerns of weight gain -When necessary Ativan and Haldol for agitation/aggression. -NRT - nicotine patch/gum -SW on board for discharge planning. Encouraged the patient to participate in milieu.
[2022-11-01] MEDS: MAG HYDROX/AL HYDROX/SIMETH 30 ML CUP PO PRN (16:56)
[2022-11-01] MEDS: QUEtiapine 100 MG TAB PO SCH (21:29)
[2022-11-02] MEDS: NICOTINE 14MG/24HR PATCH TRANSDERM SCH (07:59)
[2022-11-02] MEDS: NICOTINE GUM (POLACRILEX) 2 MG GUM BUCCAL PRN ×2 (09:23→18:25)
[2022-11-02] MEDS ORDERED: fluPHENAZine DECANOATE 25 MG/ML 5ML MDV IM ONE (11:00)
--- NOTE | 2022-11-02 12:09 | P.PN ---
Progress Note - Text Progress Note Date: 11/02/22 Interval History: Patient was seen resting in bed and was directable and agreeable to speak with information writer in his room. The patient reports that he is feeling better. He reports that he expresses an internal dialogue however is denying any overt auditory or visual hallucinations. He is not forthcoming with any bizarre delusional thought content. He is in agreement to receive the prolixin decanoate today. He does report that the inital psychotic symptoms that he was experiencing have decreased in severity. He reports sleeping and eating better. Mental Status Exam: General Appearance: Patient appears to be stated age is alert, directable, and cooperative. Improved hygiene and grooming. Behavior: Patient is calmly seated without any agitated behavior. Eye contact is fair. Speech: Patient's speech is fluent and nonpressured. Monotone. Nonspontaneous. Mood/Affect: Mood is improving mildly, affect is congruent and blunted. Suicidality/Homicidality: Patient denies having any suicidal or homicidal ideation intent or plan. Perceptions: Patient denies any visual hallucinations however endorses auditory hallucinations. Though content/process: Patient is much more linear and logical in conversation today. Memory and concentration: AOX3, grossly intact for the purposes of this session Judgment and insight: Improving mildly Vital Signs Temp 97.3 F L 11/02/22 06:58 Pulse 88 11/02/22 06:58 Resp 14 11/02/22 06:58 BP 119/75 11/02/22 06:58 Pulse Ox 97 11/02/22 06:58 FiO2 Assessment Schizoaffective disorder, depressive type Cannabis use disorder Tobacco use disorder Plan: -Patient continues to meet criteria for inpatient psychiatric admission for symptom stabilization and safety. Patient has signed adult voluntary form and medication consent and was placed in patient's chart. -Medications: Prolixin to 5 mg twice daily for psychosis Administer Prolixin Decanoate 25 mg IM today. Seroquel 100 mg by mouth at bedtime for psychosis -When necessary Ativan and Haldol for agitation/aggression. -NRT - nicotine patch/gum -SW on board for discharge planning. Encouraged the patient to participate in milieu.
[2022-11-02] MEDS: QUEtiapine 100 MG TAB PO SCH (20:38)
[2022-11-02] MEDS: LORazepam 1 MG TAB PO PRN (20:38)
[2022-11-03] MEDS: NICOTINE 14MG/24HR PATCH TRANSDERM SCH (08:09)
[2022-11-03] MEDS: NICOTINE GUM (POLACRILEX) 2 MG GUM BUCCAL PRN (08:36)
[2022-11-03 08:38] VITALS: BP 121/78; PULSE 113; RESP 20; TEMP 97.1
--- NOTE | 2022-11-03 13:10 | P.DS ---
Providers Date of admission: 10/27/22 22:30 Expected date of discharge: 11/03/22 Attending physician: Rigo Mccloud MD Consults: 10/27/22 22:42 Consult Physician Routine Consulting Provider: Moris Schumacher Consult Reason/Comments: H&P Do you want consulting provider notified?: Yes Primary care physician: Moris Schumacher - Discharge Diagnosis(es) (1) Schizoaffective disorder, depressive type Current Visit: Yes Status: Acute Priority: High (2) Tobacco use disorder Current Visit: Yes Status: Chronic Priority: Medium (3) Cannabis use disorder, mild, abuse Current Visit: Yes Status: Chronic Priority: Medium (4) Poor compliance with medication Current Visit: Yes Status: Chronic Priority: Medium Hospital Course: Admission HPI: Patient is a single, unemployed, 31-year-old male with significant history of schizophrenia and cannabis abuse who presented to our hospital on 10/27/2022 for psychosis. Patient presented to the hospital on 10/27/2022, brought into the hospital by [facility] staff for acute psychotic symptoms. As per [facility], the patient was witnessed rocking to himself, reporting that he did not take any medications for the past 6 months, sobbing, and responding to internal stimuli. The patient was noted to be scared of a voice in his head that God was trying to kill him. He is currently under a court order for mental health treatment until 04/27/2023. The patient was subsequently admitted on to the psychiatric unit. Upon evaluation on the psychiatric unit, the patient reports that he has been experiencing worsening psychotic symptoms over the past few months. He reports that he is constantly hearing voices that are often demeaning and commanding in nature. He reports that they constantly telling him "I'm a bitch rare, and that I will wake up blind." He also reports that he does not do as the voices tell him, that people's lives will be lost. He reports that the voices are ongoing and constant. Furthermore, the patient endorses visual hallucinations in the forms of lights and images. He describes these as "icons." The patient does report some lutheran preoccupation. He feels as if he is letting down God. In regards to mood symptoms, the patient reports significant symptoms of depression. He reports that he has been having very little energy, poor sleep, poor hygiene and grooming, hopelessness, and helplessness. He does report suicidal ideation however denies any intention or plan. He reports homicidal ideation if "the voices tell me to." The patient was previously on a regimen of Prolixin Decanoate 25 mg IM every 2 weeks with his last IM injection being administered on 08/23/2021. He is currently only on a regimen of Seroquel XR 150 mg at bedtime. Patient has previous diagnoses of schizophrenia and cannabis use disorder. The patient has been previously trialed on Invega, Prolixin, and Seroquel. The patient was last hospitalized on the psychiatric unit in July 2021. The patient is reportedly open with [facility] however has not been following up regularly. He denies any prior attempts at suicide. Hospital course: Upon admission to the unit patient was initially endorsing severe psychotic symptoms that were commanding him to hurt himself or threatening him with blindness. Patient was however directable and agreeable to commence treatment. Patient got along well with other patients on the unit and followed unit protocol. Patient was compliant with the medications and denied any side effects throughout hospital course. Patient was started on Prolixin with plans to transition back to a long-acting injectable Prolixin Decanoate and Seroquel for augmentation/psychosis/insomnia. Patient spoke of his stressors and engaged in therapy both group and individual. Patient was also seen by medical team for history and physical exam. Throughout the course of the hospitalization patient gradually improved with regards to his target symptoms of psychosis. He became more linear and logical and conversation and responded less to internal stimuli. He became more future and goal oriented. On the day of discharge, the patient is not reporting any suicidal or homicidal ideation, intention, and/or plan. He is not reporting any auditory or visual hallucinations. He is denying any paranoia or other delusions. He has been in adherent with his medication is not endorsing any significant side effects. He reports no access to firearms or other weapons. He was counseled at length on medication adherence and appropriate outpatient follow-up. The patient is calmly court ordered for treatment and is to follow up with [facility]. He expresses understanding. He was counseled at great length on abstaining from all substances including marijuana, tobacco, and illicit drugs. The patient reported no issues regarding chest pain, shortness of breath, muscle tightness, or weakness in the day of discharge. As the patient no longer met criteria for continued psychiatric admission, he was subsequently discharged. Mental status exam: General Appearance: Patient appears to be stated age is alert, pleasant, and cooperative. Patient is in no acute distress and has fair hygiene and grooming Behavior: Patient is calmly seated without any agitated behavior. Speech: Patient's speech is fluent and nonpressured. Mood/Affect: Patient reports their mood is "doing good", affect is congruent and blunted at baseline. Suicidality/Homicidality: Patient denies having any suicidal or homicidal ideation intent or plan. Perceptions: Patient denies any auditory or visual hallucinations. Though content/process: There is no evidence of any delusional thought content and thought process is linear and goal-directed. He is future oriented. Memory and concentration: AOX3, grossly intact for the purposes of this session. Can spell "WORLD" backwards correctly. Judgment and insight: Improved with guarded prognosis Impression: Schizoaffective disorder, depressive type Cannabis use disorder Tobacco use disorder Plan: -Continue with discharge today as patient has improved and stabilized psychiatrically and is not currently an imminent threat to himself and/or others. Patient remain at chronically elevated risk due to his history of nonadherence with treatment and severity of mental illness. -Continue medications: Prolixin decanoate 25 mg IM was administered on 11/02/2022. Next dose due on 11/30/2022. Seroquel 100 mg by mouth at bedtime for insomnia/psychosis - should patient be well controlled on Prolixin Decanoate, Seroquel may be tapered and discontinued so that the patient may be on monotherapy with antipsychotics. -Patient was counseled on the need for medication compliance and appropriate follow-up at mental health and also primary care for medical issues. Patient verbalized understanding and agreed. -Social work to arrange for and conduct family meeting to ensure safety upon discharge and answer any questions/concerns. Social work also to arrange for patients follow up appointments with [facility] for psychiatric care along with follow up with primary care provider. -Patient counseled on abstaining from recreational drugs and marijuana and alcohol. Was informed/educated on the adverse effects on their physical and mental health. Patient verbally agreed and understood. -Patient was instructed to return to the hospital or seek immediate medical care if their psychiatric or medical symptoms do worsen or reoccur. -Psychoeducation and supportive therapy provided to patient. Risks and benefits of pharmacological treatment versus the risks and benefits of nontreatment weight and discussed. Informed consent discussion held. Common side effects of psychotropics discussed such as, but not limited to headache, GI disturbance, sexual dysfunction, movement disorders, sedation, and orthostatic hypotension. Life threatening and blackbox warnings of prescribed medications also discussed. Potential risks of operating a vehicle or heavy machinery discussed with patient at length. Advised on importance of compliance and a reliable and responsible manner. Patient advised to review FDA consumer labeling of all medications prior to taking. Patient verbalized understanding of potential risks, and agrees with current treatment plan. Patient advised to medically contact physician/emergency personnel if any acute changes in condition occur. Vital Signs Temp 97.1 F L 11/03/22 08:36 Pulse 113 H 11/03/22 08:36 Resp 20 11/03/22 08:36 BP 121/78 11/03/22 08:36 Pulse Ox 97 11/02/22 06:58 FiO2 Laboratory Results WBC 7.2 k/uL (3.8-10.6) 10/28/22 07:52 RBC 4.83 m/uL (4.30-5.90) 10/28/22 07:52 Hgb 15.4 gm/dL (13.0-17.5) 10/28/22 07:52 Hct 45.8 % (39.0-53.0) 10/28/22 07:52 MCV 94.7 fL (80.0-100.0) 10/28/22 07:52 MCH 31.8 pg (25.0-35.0) 10/28/22 07:52 MCHC 33.6 g/dL (31.0-37.0) 10/28/22 07:52 RDW 12.4 % (11.5-15.5) 10/28/22 07:52 Plt Count 251 k/uL (150-450) 10/28/22 07:52 MPV 8.1 10/28/22 07:52 Neutrophils % 64 % 10/28/22 07:52 Lymphocytes % 21 % 10/28/22 07:52 Monocytes % 6 % 10/28/22 07:52 Eosinophils % 6 % 10/28/22 07:52 Basophils % 1 % 10/28/22 07:52 Neutrophils # 4.7 k/uL (1.3-7.7) 10/28/22 07:52 Lymphocytes # 1.5 k/uL (1.0-4.8) 10/28/22 07:52 Monocytes # 0.4 k/uL (0-1.0) 10/28/22 07:52 Eosinophils # 0.5 k/uL (0-0.7) 10/28/22 07:52 Basophils # 0.0 k/uL (0-0.2) 10/28/22 07:52 Sodium 139 mmol/L (137-145) 10/28/22 07:52 Potassium 4.6 mmol/L (3.5-5.1) 10/28/22 07:52 Chloride 107 mmol/L (98-107) 10/28/22 07:52 Carbon Dioxide 27 mmol/L (22-30) 10/28/22 07:52 Anion Gap 5 mmol/L 10/28/22 07:52 BUN 11 mg/dL (9-20) 10/28/22 07:52 Creatinine 0.96 mg/dL (0.66-1.25) 10/28/22 07:52 Est GFR (CKD-EPI)AfAm >90 (>60 ml/min/1.73 sqM) 10/28/22 07:52 Est GFR (CKD-EPI)NonAf >90 (>60 ml/min/1.73 sqM) 10/28/22 07:52 Glucose 88 mg/dL (74-99) 10/28/22 07:[address] Glu mg/dL 105 10/28/22 07:52 Hemoglobin A1c 5.3 % (0.0-6.0) 10/28/22 07:52 Calcium 9.1 mg/dL (8.4-10.2) 10/28/22 07:52 Total Bilirubin 0.3 mg/dL (0.2-1.3) 10/28/22 07:52 AST 22 U/L (17-59) 10/28/22 07:52 ALT 38 U/L (4-49) 10/28/22 07:52 Alkaline Phosphatase 42 U/L (38-126) 10/28/22 07:52 Total Protein 7.0 g/dL (6.3-8.2) 10/28/22 07:52 Albumin 4.2 g/dL (3.5-5.0) 10/28/22 07:52 Triglycerides 108.00 mg/dL (0.00-149.00) 10/28/22 07:52 Cholesterol 134.00 mg/dL (0.00-200.00) 10/28/22 07:52 LDL Cholesterol, Calc 77.8 mg/dL (0.0-131.0) 10/28/22 07:52 VLDL Cholesterol, Calc 21.60 mg/dL (5.00-40.00) 10/28/22 07:52 HDL Cholesterol 34.60 mg/dL (40.00-60.00) L 10/28/22 07:52 Cholesterol/HDL Ratio 3.87 Ratio 10/28/22 07: TSH 4.130 mIU/L (0.465-4.680) 10/28/22 07:52 Urine Color Yellow 10/27/22 20:51 Urine Appearance Clear (Clear) 10/27/22 20:51 Urine pH 6.0 (5.0-8.0) 10/27/22 20:51 Ur Specific [place] 1.012 (1.001-1.035) 10/27/22 20:51 Urine Protein Negative (Negative) 10/27/22 20:51 Urine Glucose (UA) Negative (Negative) 10/27/22 20:51 Urine Ketones Negative (Negative) 10/27/22 20:51 Urine Blood Negative (Negative) 10/27/22 20:51 Urine Nitrite Negative (Negative) 10/27/22 20:51 Urine Bilirubin Negative (Negative) 10/27/22 20:51 Urine Urobilinogen 3.0 mg/dL (<2.0) 10/27/22 20:51 Ur Leukocyte Esterase Negative (Negative) 10/27/22 20:51 Urine Opiates Screen Not Detected (NotDetected) 10/27/22 20:51 Ur Oxycodone Screen Not Detected (NotDetected) 10/27/22 20:51 Urine Methadone Screen Not Detected (NotDetected) 10/27/22 20:51 Ur Propoxyphene Screen Not Detected (NotDetected) 10/27/22 20:51 Ur Barbiturates Screen Not Detected (NotDetected) 10/27/22 20:51 U Tricyclic Antidepress Detected (NotDetected) H 10/27/22 20:51 Ur Phencyclidine Scrn Not Detected (NotDetected) 10/27/22 20:51 Ur Amphetamines Screen Not Detected (NotDetected) 10/27/22 20:51 U Methamphetamines Scrn Not Detected (NotDetected) 10/27/22 20:51 U Benzodiazepines Scrn Not Detected (NotDetected) 10/27/22 20:51 Urine Cocaine Screen Not Detected (NotDetected) 10/27/22 20:51 U Marijuana (THC) Screen Detected (NotDetected) H 10/27/22 20:51 Coronavirus (PCR) Not Detected (Not Detectd) 10/27/22 20:51 Allergies Allergy/AdvReac Type Severity Reaction Status Date / Time No Known Allergies Allergy Verified 10/28/22 02:44 Patient Condition at Discharge: Stable Plan - Discharge Summary Discharge Rx Participant: Yes New Discharge Prescriptions: New fluPHENAZine decanoate [Prolixin Decanoate] 25 mg IM QMONTHLY #1 ml Nicotine 14Mg/24Hr Patch [Habitrol] 1 patch TRANSDERM DAILY 15 Days #15 patch QUEtiapine [SEROquel] 100 mg PO HS 15 Days #15 tab Discontinued QUEtiapine FUMARATE 150 mg PO HS Discharge Medication List Nicotine 14Mg/24Hr Patch [Habitrol] 1 patch TRANSDERM DAILY 15 Days #15 patch 11/03/22 [Rx] QUEtiapine [SEROquel] 100 mg PO HS 15 Days #15 tab 11/03/22 [Rx] fluPHENAZine decanoate [Prolixin Decanoate] 25 mg IM QMONTHLY #1 ml 11/03/22 [Rx] Follow up Appointment(s)/Referral(s): [facility] [Outside] - 11/08/22 9:00 am (11/08/2022 9:00AM - 10:00AM MICHAEL GIVENS 11/09/2022 8:30AM - 9:00AM ODELL DE LA CRUZ 01/24/2023 1:30PM - 2:00PM ODELL DE LA CRUZ ) Moris Schumacher MD [Primary Care Provider] - 1-2 days Patient Instructions/Handouts: How to Stop Smoking (DC), Schizoaffective Disorder (DC) Activity/Diet/Wound Care/Special Instructions: Avoid the use of street drugs and alcohol. Take all prescriptions as prescribed. When you are in need of refills on your medications, please contact your medical provider and/or outpatient psychiatrist to have this done. Please go to scheduled outpatient appointment for aftercare treatment. If symptoms return or become worse, call the crisis line at and/or go to the nearest emergency room for evaluation Discharge Disposition: HOME SELF-CARE
== END 2022-11-03 13:38 | disposition home or self-care (01) | DRG 885 ==
LOC: EC 15:38 → 3MHU 22:30
PROVIDERS: ADMIT Psychiatry & Neurology Psychiatry; ATTEND Psychiatry & Neurology Psychiatry
DX: F25.1 Schizoaffective disorder, depressive type (principal); R45.851 Suicidal ideations; F12.10 Cannabis abuse, uncomplicated; F17.210 Nicotine dependence, cigarettes, uncomplicated; F41.9 Anxiety disorder, unspecified; F90.9 Attention-deficit hyperactivity disorder, unspecified type; G47.00 Insomnia, unspecified; R45.850 Homicidal ideations; Z56.0 Unemployment, unspecified; Z79.899 Other long term (current) drug therapy; Z91.14 Patient's other noncompliance with medication regimen; Z28.310 Unvaccinated for COVID-19; Z71.51 Drug abuse counseling and surveillance of drug abuser; Z20.822 Contact with and (suspected) exposure to COVID-19; Z28.21 Immunization not carried out because of patient refusal
CPT/HCPCS: 80053; 80061; 80306; 81003; 82075; 83036; 84443; 85025; 87635; 99285

== ENCOUNTER 2023-03-25 10:42 | Emergency (ER) | payer OTHER ==
[2023-03-25 11:12] VITALS: TEMP 97.6
--- NOTE | 2023-03-25 12:26 | ED ---
General Adult HPI - General Chief complaint: Psychiatric Symptoms Stated complaint: Mental Health Time Seen by Provider: 03/25/23 11:55 Source: patient, police, RN notes reviewed Mode of arrival: ambulatory Limitations: no limitations - History of Present Illness Initial comments: 32-year-old male with an extensive past psychiatric history since to the emergency department with a chief complaint of psychiatric evaluation. Patient reports he's been noncompliant with his [facility] appointments. He has been taking his medications as prescribed on and off. He reports that he needs a refill on his Seroquel. She denies any specific complaints at this time. Denies any homicidal or suicidal ideation. Denies worsening anxiety or depression. Denies any illicit drug use or recent alcohol use. He does report that he smokes marijuana. - Related Data Home Medications Medication Instructions Recorded Confirmed QUEtiapine FUMARATE 150 mg PO HS 03/25/23 03/25/23 fluPHENAZine decanoate [Prolixin 50 mg IM QMONTHLY 03/25/23 03/25/23 Decanoate] Allergies Allergy/AdvReac Type Severity Reaction Status Date / Time No Known Allergies Allergy Verified 03/25/23 11:12 Review of Systems ROS Statement: Those systems with pertinent positive or pertinent negative responses have been documented in the HPI. ROS Other: All systems not noted in ROS Statement are negative. Past Medical History Past Medical History: No Reported History History of Any Multi-Drug Resistant Organisms: None Reported Past Surgical History: Orthopedic Surgery Additional Past Surgical History / Comment(s): right arm, Past Psychological History: ADD/ADHD, Anxiety, Depression Smoking Status: Current every day smoker Past Alcohol Use History: None Reported Past Drug Use History: Marijuana General Exam - General Exam Comments Initial Comments: General: Alert, in no acute distress Head: atraumatic normocephalic. Eyes PERRL, EOMI intact, mucous membranes moist Respiratory: Lungs clear to auscultation bilaterally Cardiovascular: Heart rate regular rate and rhythm Abdominal: Soft without guarding or rebound Extremities: Normal inspection with full range of motion and normal capillary refill Neuroogic: alert and oriented 3, CN II-XII intact, able to ambulate with steady gait Skin: warm dry and intact with normal color Limitations: no limitations Course Vital Signs 03/25/23 03/25/23 11:04 17:18 Temperature 97.6 F Pulse Rate 71 72 Respiratory 20 18 Rate Blood Pressure 131/85 132/80 O2 Sat by Pulse 96 96 Oximetry - Reevaluation(s) Reevaluation #1: 03/25/23 16:44 Case discussed with MACY Velasco nurse who believes the patient is stable for discharge. Awaiting father to arrive to the emergency department in order to discharge the patient. Medical Decision Making - Medical Decision Making Was pt. sent in by a medical professional or institution (DOROTEO Barros, RN FIELD CASE MANAGER, urgent care, hospital, or [facility]...) When possible be specific @ -[No] Did you speak to anyone other than the patient for history (EMS, parent, family, police, friend...)? What history was obtained from this source @ -Father Did you review nursing and triage notes (agree or disagree)? Why? @ -[I reviewed and agree with nursing and triage notes] Were old charts reviewed (outside hosp., previous admission, EMS record, old EKG, old radiological studies, urgent care reports/EKG's, [facility] records)? Report findings @ -[No old charts were reviewed] Differential Diagnosis (chest pain, altered mental status, abdominal pain women, abdominal pain men, vaginal bleeding, weakness, fever, dyspnea, syncope, headache, dizziness, GI bleed, back pain, seizure, CVA, palpatations, mental health, musculoskeletal)? @ -[not applicable] EKG interpreted by me (3pts min.). @ -[As above] X-rays interpreted by me (1pt min.). @ -[None done] CT interpreted by me (1pt min.). @ -[None done] U/S interpreted by me (1pt. min.). @ -[None done] What testing was considered but not performed or refused? (CT, X-rays, U/S, labs)? Why? @ -[None] What meds were considered but not given or refused? Why? @ -[None] Did you discuss the management of the patient with other professionals (professionals i.e. DOROTEO Barros, RN FIELD CASE MANAGER, lab, RT, psych nurse, social work case manager, van helper, teacher, mail officer, skilled nursing case manager)? Give summary @ -[No] Was smoking cessation discussed for >3mins.? @ -[No] Was critical care preformed (if so, how long)? @ -[No] Were there social determinants of health that impacted care today? How? (Homelessness, low income, unemployed, alcoholism, drug addiction, transportation, low edu. Level, literacy, decrease access to med. care, correction, rehab)? @ -[No] Was there de-escalation of care discussed even if they declined (Discuss DNR or withdrawal of care, Hospice)? DNR status @ -[No] What co-morbidities impacted this encounter? (DM, HTN, Smoking, COPD, CAD, Cancer, CVA, ARF, Chemo, Hep., AIDS, mental health diagnosis, sleep apnea, mo rbid obesity)? @ -[None] Was patient admitted / discharged? Hospital course, mention meds given and route, prescriptions, significant lab abnormalities, going to OR and other pertinent info. @ -Discharged. This is a pleasant 32-year-old male who presents to the emergency department with psychiatric evaluation. Patient presents to the ED via PD escort. He offers no specific complaints at this time of evaluation and reports he is "ordered to be evaluated by EPS services. Patient had a thorough history and physical exam performed on the ED. Physical exam is essentially unremarkable. Heart rate regular rate and rhythm, lungs clear to auscultation bilaterally, abdomen soft. Patient appears unkept. Patient had an evaluation done by EPS NOELLE Velasco who reports that the patient has been compliant with his court-ordered psychiatric evaluation. She believes patient is able for discharge. Patient will be discharged home. Undiagnosed new problem with uncertain prognosis? @ -[No] Drug Therapy requiring intensive monitoring for toxicity (Heparin, Nitro, Insulin, Cardizem)? @ -[No] Were any procedures done? @ -[No] Diagnosis/symptom? @ -Psychiatric evaluation Acute, or Chronic, or Acute on Chronic? @ -Acute Uncomplicated (without systemic symptoms) or Complicated (systemic symptoms)? @ -uncomplicated Side effects of treatment? @ -[No] Exacerbation, Progression, or Severe Exacerbation? @ -[No] Poses a threat to life or bodily function? How? (Chest pain, USA, SC, pneumonia, PE, COPD, DKA, ARF, appy, cholecystitis, CVA, Diverticulitis, Homicidal, Suicidal, threat to staff... and all critical care pts) @ -Low likelihood - Lab Data Lab Results 03/25/23 03/25/23 Range/Units 14:31 15:31 Urine Opiates Screen Not Detected (NotDetected) Ur Oxycodone Screen Not Detected (NotDetected) Urine Methadone Screen Not Detected (NotDetected) Ur Propoxyphene Screen Not Detected (NotDetected) Ur Barbiturates Screen Not Detected (NotDetected) U Tricyclic Antidepress Not Detected (NotDetected) Ur Phencyclidine Scrn Not Detected (NotDetected) Ur Amphetamines Screen Not Detected (NotDetected) U Methamphetamines Scrn Not Detected (NotDetected) U Benzodiazepines Scrn Not Detected (NotDetected) Urine Cocaine Screen Not Detected (NotDetected) U Marijuana (THC) Screen Detected H (NotDetected) Coronavirus (PCR) Not Detected (Not Detectd) Disposition Clinical Impression: Psychiatric follow-up Disposition: HOME SELF-CARE Condition: Stable Additional Instructions: These return to the nearest emergency department symptoms worsen or persist Is patient prescribed a controlled substance at d/c from ED?: No Referrals: None,Stated [REFERRING] - 1-2 days Time of Disposition: 17:12
[2023-03-25] MEDS ORDERED: NICOTINE GUM (POLACRILEX) 2 MG GUM BUCCAL STA (13:07)
[2023-03-25 15:02] LABS: Amphetamine Screen,Urine Not Detected (NotDetected); Barbiturate Screen,Urine Not Detected (NotDetected); Benzodiazepines Screen,Urine Not Detected (NotDetected); Cocaine Screen,Urine Not Detected (NotDetected); Methadone Screen, Urine Not Detected (NotDetected); Opiate Screen,Urine Not Detected (NotDetected); Oxycodone Screen, Urine Not Detected (NotDetected); Phencyclidine Screen,Urine Not Detected (NotDetected); Tricyclic Antidepressant,Urine Not Detected (NotDetected); Urn Cannabinoid Scrn Detected (NotDetected)
[2023-03-25 17:22] VITALS: BP 132/80; PULSE 72; RESP 18
== END 2023-03-25 17:22 | disposition home or self-care (01) ==
LOC: EC 10:42
DX: Z00.8 Encounter for other general examination (principal); F90.9 Attention-deficit hyperactivity disorder, unspecified type; F41.9 Anxiety disorder, unspecified; F32.A Depression, unspecified; F17.200 Nicotine dependence, unspecified, uncomplicated; F12.90 Cannabis use, unspecified, uncomplicated; Z79.899 Other long term (current) drug therapy; Z20.822 Contact with and (suspected) exposure to COVID-19
CPT/HCPCS: 80306; 82075; 87635; 99284

== ENCOUNTER 2024-03-01 16:20 | Emergency (ER) | payer OTHER ==
[2024-03-01 16:57] VITALS: TEMP 99
--- NOTE | 2024-03-01 17:03 | ED ---
Psych HPI - General Chief Complaint: Psychiatric Symptoms Stated Complaint: mental health Time Seen by Provider: 03/01/24 17:03 Source: patient, EMS, RN notes reviewed, old records reviewed Mode of arrival: EMS Limitations: no limitations, altered mental status - History of Present Illness Initial Comments: This is a 33-year-old male to the ER for evaluation has been following with [facility] concerning for schizophrenia diagnosis. Patient is very emotional here in the emergency department, states that he is having difficulty controlling his thoughts, has not been feeling well for some time cannot sleep at night due to racing thoughts, not currently homicidal or suicidal but does feel unwell very emotional and crying here in the ER MD Complaint: feels depressed, altered mental status -: days(s) Associated Psychiatric Symptoms: depression, racing thoughts, auditory hallucina tions, visual hallucinations, delusions Quality: intermittent Improves With: none Worsens With: none Context: not taking psychiatric medications, significant life stressor Associated Symptoms: denies other symptoms Treatments Prior to Arrival: none - Related Data Home Medications Medication Instructions Recorded Confirmed Docusate [Colace] 100 mg PO DIRECTED PRN 03/01/24 03/01/24 QUEtiapine [SEROquel] 100 mg PO DIRECTED 03/01/24 03/01/24 hydrOXYzine HCL [Atarax] 25 mg PO DIRECTED PRN 03/01/24 03/01/24 Allergies Allergy/AdvReac Type Severity Reaction Status Date / Time No Known Allergies Allergy Verified 03/12/24 13:41 Review of Systems ROS Statement: Those systems with pertinent positive or pertinent negative responses have been documented in the HPI. ROS Other: All systems not noted in ROS Statement are negative. Past Medical History Past Medical History: No Reported History History of Any Multi-Drug Resistant Organisms: None Reported Past Surgical History: Orthopedic Surgery Additional Past Surgical History / Comment(s): right arm, Past Psychological History: ADD/ADHD, Anxiety, Depression, Schizophrenia Smoking Status: Current every day smoker, Vaper Past Alcohol Use History: None Reported Past Drug Use History: Marijuana General Exam Limitations: no limitations General appearance: alert, in no apparent distress, anxious Head exam: Present: atraumatic, normocephalic, normal inspection Eye exam: Present: normal appearance, PERRL, EOMI. Absent: scleral icterus, conjunctival injection, periorbital swelling ENT exam: Present: normal exam, mucous membranes moist Neck exam: Present: normal inspection. Absent: tenderness, meningismus, lymphadenopathy Respiratory exam: Present: normal lung sounds bilaterally. Absent: respiratory distress, wheezes, rales, rhonchi, stridor Cardiovascular Exam: Present: normal rhythm, tachycardia, normal heart sounds. Absent: systolic murmur, diastolic murmur, rubs, gallop, clicks GI/Abdominal exam: Present: soft, normal bowel sounds. Absent: distended, tenderness, guarding, rebound, rigid Extremities exam: Present: normal inspection, full ROM, normal capillary refill. Absent: tenderness, pedal edema, joint swelling, calf tenderness Back exam: Present: normal inspection Neurological exam: Present: alert, oriented X3, CN II-XII intact Psychiatric exam: Present: normal affect, normal mood Skin exam: Present: warm, dry, intact, normal color. Absent: rash Course Vital Signs 03/01/24 03/01/24 16:29 20:31 Temperature 99.0 F Pulse Rate 120 H 100 Respiratory 20 18 Rate Blood Pressure 145/101 141/86 O2 Sat by Pulse 98 100 Oximetry - Reevaluation(s) Reevaluation #1: Medical records reviewed Reevaluation #2: Medically clear for psychiatric evaluation Reevaluation #3: Was pt. sent in by a medical professional or institution (, PA, FROG CATCHER, urgent care, hospital, or [place] [facility] [place] facility...) When possible be specific @ -no Did you speak to anyone other than the patient for history (EMS, parent, family, police, friend...)? What history was obtained from this source @ -no Did you review nursing and triage notes (agree or disagree)? Why? @ -agree Are old charts reviewed (outside hosp., previous admission, EMS record, old EKG, old radiological studies, urgent care reports/EKG's, [place] health [facility] [place] records)? Report findings @ -yes Differential Diagnosis (chest pain, altered mental status, abdominal pain women, abdominal pain men, vaginal bleeding, weakness, fever, dyspnea, syncope, headache, dizziness, GI bleed, back pain, seizure, CVA, palpatations, mental health, musculoskeletal)? @ -prior EKG interpreted by me (3pts min.). @ -no X-rays interpreted by me (1pt min.). @ -no CT interpreted by me (1pt min.). @ -no U/S interpreted by me (1pt. min.). @ -no What testing was considered but not performed or refused? (CT, X-rays, U/S, labs)? Why? @ -none What meds were considered but not given or refused? Why? @ -none Did you discuss the management of the patient with other professionals (professionals i.e. Dr., PA, FROG CATCHER, lab, RT, psych nurse, psychiatric social worker, general engineering teacher, teacher, chief financial officer, case reviewer)? Give summary @ -no Was smoking cessation discussed for >3mins.? @ -no Was critical care preformed (if so, how long)? @ -no Were there social determinants of health that impacted care today? How? (Homelessness, low income, unemployed, alcoholism, drug addiction, tr ansportation, low edu. Level, literacy, decrease access to med. care, fpc, rehab)? @ -none Was there de-escalation of care discussed even if they declined (Discuss DNR or withdrawal of care, Hospice)? DNR status @ -no What co-morbidities impacted this encounter? (DM, HTN, Smoking, COPD, CAD, Cancer, CVA, ARF, Chemo, Hep., AIDS, mental health diagnosis, sleep apnea, morbid obesity)? @ -none Was patient admitted / discharged? Hospital course, mention meds given and route, prescriptions, significant lab abnormalities, going to OR and other pertinent info. @ - 33 male to ER for psychiatric evaluation acute psychosis diagnosis. Patient seen evaluate psychiatry here in the ER and can be discharged home Discharge Undiagnosed new problem with uncertain prognosis? @ -no Drug Therapy requiring intensive monitoring for toxicity (Heparin, Nitro, Insulin, Cardizem)? @ -no Were any procedures done? @ -no Diagnosis/symptom? @ -Acute psychosis Acute, or Chronic, or Acute on Chronic? @ -Acute Uncomplicated (without systemic symptoms) or Complicated (systemic symptoms)? @ -Complicated Side effects of treatment? @ -no Exacerbation, Progression, or Severe Exacerbation? @ -exacerbation Poses a threat to life or bodily function? How? (Chest pain, [place], [place], pneumonia, PE, COPD, DKA, ARF, appy, cholecystitis, CVA, Diverticulitis, Homicidal, Suicidal, threat to staff... and all critical care pts) @ -yes significant psychiatric illness Medical Decision Making - Medical Decision Making 33 male to ER for psychiatric evaluation acute psychosis diagnosis. Patient seen evaluate psychiatry here in the ER and can be discharged home Disposition Clinical Impression: Psychosis, Anxiety Disposition: HOME SELF-CARE Condition: Fair Is patient prescribed a controlled substance at d/c from ED?: No Referrals: Moris Schumacher MD [Primary Care Provider] - 1-2 days
[2024-03-01] MEDS: NICOTINE GUM (POLACRILEX) 2 MG GUM BUCCAL STA (19:59)
[2024-03-01] MEDS: diazePAM 5 MG TAB PO STA (20:30)
[2024-03-01 20:47] VITALS: BP 141/86; PULSE 100; RESP 18
== END 2024-03-01 20:39 | disposition home or self-care (01) ==
LOC: EC 16:20 → EEVIPCON 16:20 → EC 20:39
DX: F29 Unspecified psychosis not due to a substance or known physiological condition (principal); F41.9 Anxiety disorder, unspecified; F17.290 Nicotine dependence, other tobacco product, uncomplicated; F32.A Depression, unspecified
CPT/HCPCS: 82075; 99284

== ENCOUNTER 2024-03-12 13:31 | Inpatient (IN) | payer MEDICAID, OTHER ==
--- NOTE | 2024-03-12 14:19 | ED ---
General Adult HPI - General Source: patient, RN notes reviewed, old records reviewed Mode of arrival: ambulatory Limitations: no limitations <Romel Velasco - Last Filed: 03/12/24 14:16> <Atilio Vasques - Last Filed: 03/12/24 17:18> - General Chief complaint: Psychiatric Symptoms Stated complaint: Mental Health Time Seen by Provider: 03/12/24 13:35 - History of Present Illness Initial comments: 3-year-old male history of schizophrenia presenting with visual hallucination and thoughts of suicide. Patient requesting psychiatric evaluation. No recent medication changes. No suicide attempt. No physical complaints. (Romel Velasco) - Related Data Home Medications Medication Instructions Recorded Confirmed Docusate [Colace] 100 mg PO BID PRN 03/01/24 03/12/24 QUEtiapine [SEROquel] 100 mg PO HS 03/01/24 03/12/24 hydrOXYzine HCL [Atarax] 25 mg PO TID 03/01/24 03/12/24 Allergies Allergy/AdvReac Type Severity Reaction Status Date / Time No Known Allergies Allergy Verified 03/12/24 15:49 Review of Systems ROS Other: All systems not noted in ROS Statement are negative. <Romel Velasco - Last Filed: 03/12/24 14:16> ROS Other: All systems not noted in ROS Statement are negative. <Atilio Vasques - Last Filed: 03/12/24 17:18> ROS Statement: Those systems with pertinent positive or pertinent negative responses have been documented in the HPI. Past Medical History Past Medical History: No Reported History History of Any Multi-Drug Resistant Organisms: None Reported Past Surgical History: Orthopedic Surgery Additional Past Surgical History / Comment(s): right arm, Past Psychological History: ADD/ADHD, Anxiety, Depression, Schizophrenia Smoking Status: Current every day smoker, Vaper Past Alcohol Use History: None Reported Past Drug Use History: Marijuana <Romel Velasco - Last Filed: 03/12/24 14:16> General Exam Limitations: no limitations General appearance: alert, in no apparent distress Head exam: Present: atraumatic, normocephalic Eye exam: Present: normal appearance, PERRL ENT exam: Present: normal exam Neck exam: Present: normal inspection. Absent: tenderness, meningismus Respiratory exam: Present: normal lung sounds bilaterally. Absent: respiratory distress, wheezes Cardiovascular Exam: Present: regular rate, normal rhythm GI/Abdominal exam: Present: soft. Absent: distended, tenderness, guarding Extremities exam: Present: normal inspection, normal capillary refill Neurological exam: Present: alert, oriented X3 Psychiatric exam: Present: suicidal ideation, other (Visual hallucination) Skin exam: Present: warm, dry, intact <Romel Velasco Krystin - Last Filed: 03/12/24 14:16> Course Vital Signs 03/12/24 13:39 Temperature 98 F Pulse Rate 100 Respiratory 18 Rate Blood Pressure 136/90 O2 Sat by Pulse 100 Oximetry Medical Decision Making <Romel Velasco Krystin - Last Filed: 03/12/24 14:16> - Medical Decision Making Was pt. sent in by a medical professional or institution (DOROTEO Barros, PLANS EXAMINER, urgent care, hospital, or long-term...) When possible be specific @ -[No] Did you speak to anyone other than the patient for history (EMS, parent, family, police, friend...)? What history was obtained from this source @ -[No] Did you review nursing and triage notes (agree or disagree)? Why? @ -[I reviewed and agree with nursing and triage notes] Were old charts reviewed (outside hosp., previous admission, EMS record, old EKG, old radiological studies, urgent care reports/EKG's, long-term records)? Report findings @ -[No old charts were reviewed] Differential Mental Health Depression, anxiety, bipolar, psychosis, schizophrenia, borderline personality, situational depression, adjustment disorder, behavioral disorder, brain tumor, malingering, substance abuse, encephalopathy, medication reaction, dementia, hypothyroidism, degenerative neurologic disorder, lupus.... This is not meant to be all-inclusive list EKG interpreted by me (3pts min.). @ -[As above] X-rays interpreted by me (1pt min.). @ -[None done] CT interpreted by me (1pt min.). @ -[None done] U/S interpreted by me (1pt. min.). @ -[None done] What testing was considered but not performed or refused? (CT, X-rays, U/S, labs)? Why? @ -[None] What meds were considered but not given or refused? Why? @ -[None] Did you discuss the management of the patient with other professionals (professionals i.e. , PA, PLANS EXAMINER, lab, RT, psych nurse, social media job titles, scheduler conveyor, teacher, transit authority police officer, wrapper caser)? Give summary @ -[No] Was smoking cessation discussed for >3mins.? @ -[No] Was critical care preformed (if so, how long)? @ -[No] Were there social determinants of health that impacted care today? How? (Homelessness, low income, unemployed, alcoholism, drug addiction, transportation, low edu. Level, literacy, decrease access to med. care, f[facility], rehab)? @ -[No] Was there de-escalation of care discussed even if they declined (Discuss DNR or withdrawal of care, Hospice)? DNR status @ -[No] What co-morbidities impacted this encounter? (DM, HTN, Smoking, COPD, CAD, Cancer, CVA, ARF, Chemo, Hep., AIDS, mental health diagnosis, sleep apnea, morbid obesity)? @ -Schizophrenia Was patient admitted / discharged? Hospital course, mention meds given and route, prescriptions, significant lab abnormalities, going to OR and other pertinent info. @Patient medically cleared awaiting EPS evaluation. (Romel Velasco) - Lab Data Lab Results 03/12/24 Range/Units 14:03 Urine Opiates Screen Not Detected (NotDetected) Ur Oxycodone Screen Not Detected (NotDetected) Urine Methadone Screen Not Detected (NotDetected) Ur Barbiturates Screen Not Detected (NotDetected) U Tricyclic Antidepress Detected H (NotDetected) Ur Phencyclidine Scrn Not Detected (NotDetected) Ur Amphetamines Screen Not Detected (NotDetected) U Methamphetamines Scrn Not Detected (NotDetected) U Benzodiazepines Scrn Not Detected (NotDetected) Urine Cocaine Screen Not Detected (NotDetected) U Marijuana (THC) Screen Detected H (NotDetected) Disposition <Rmoel Velasco - Last Filed: 03/12/24 14:16> Is patient prescribed a controlled substance at d/c from ED?: No <Atilio Vasques - Last Filed: 03/12/24 17:18> Clinical Impression: Psychiatric disorder, Acute psychosis, Schizoaffective disorder Disposition: TRANSFER TO PSYCH HOSP/UNIT Condition: Fair Referrals: Moris Schumacher MD [Primary Care Provider] - 1-2 days
[2024-03-12 14:21] LABS: Amphetamine Screen,Urine Not Detected (NotDetected); Barbiturate Screen,Urine Not Detected (NotDetected); Benzodiazepines Screen,Urine Not Detected (NotDetected); Cocaine Screen,Urine Not Detected (NotDetected); Methadone Screen, Urine Not Detected (NotDetected); Opiate Screen,Urine Not Detected (NotDetected); Oxycodone Screen, Urine Not Detected (NotDetected); Phencyclidine Screen,Urine Not Detected (NotDetected); Tricyclic Antidepressant,Urine Detected (NotDetected); Urn Cannabinoid Scrn Detected (NotDetected)
[2024-03-12] MEDS: NICOTINE 7MG/24HR PATCH TRANSDERM STA (17:24)
[2024-03-12] MEDS: NICOTINE 14MG/24HR PATCH TRANSDERM STA (17:27)
[2024-03-12] MEDS: QUEtiapine 100 MG TAB PO STA (23:50)
[2024-03-12] MEDS: LORazepam 1 MG TAB PO STA (23:50)
[2024-03-13] MEDS ORDERED: HALOPERIDOL LACTATE 5 MG/ML 1 ML VIAL IM PRN (00:43)
[2024-03-13] MEDS ORDERED: ACETAMINOPHEN TAB 325 MG TAB PO PRN (00:43)
[2024-03-13] MEDS ORDERED: traZODone HCL 50 MG TAB PO PRN (00:43)
[2024-03-13] MEDS ORDERED: MAGNESIUM HYDROXIDE 2,400 MG/30 ML CUP PO PRN (00:43)
[2024-03-13] MEDS ORDERED: QUEtiapine 100 MG TAB PO PRN (00:54)
[2024-03-13] MEDS ORDERED: DOCUSATE 100 MG CAP PO PRN (00:54)
[2024-03-13] MEDS ORDERED: LORazepam 2 MG/ML INJ IM PRN (01:11)
[2024-03-13] MEDS: NICOTINE 14MG/24HR PATCH TRANSDERM SCH (09:18)
[2024-03-13 13:43] LABS: Basophils # (A) 0.1 k/uL (0-0.2); Basophils % (A) 1 %; Eosinophils # (A) 0.4 k/uL (0-0.7); Eosinophils % (A) 6 %; HCT 48.2 % (39.0-53.0); HGB 15.8 gm/dL (13.0-17.5); Lymphocytes # (A) 1.3 k/uL (1.0-4.8); Lymphocytes % (A) 16 %; MCH 31.6 pg (25.0-35.0); MCHC 32.8 g/dL (31.0-37.0); MCV 96.6 fL (80.0-100.0); Mean Platelet Volume 7.7; Monocytes # (A) 0.4 k/uL (0-1.0); Monocytes % (A) 5 %; Neutrophils # (A) 5.6 k/uL (1.3-7.7); Neutrophils % (A) 71 %; Platelet Count 240 k/uL (150-450); RBC 4.99 m/uL (4.30-5.90); RDW 12.2 % (11.5-15.5); WBC 7.9 k/uL (3.8-10.6)
[2024-03-13 13:58] LABS: ALT 26 U/L (4-49); AST 18 U/L (17-59); African American GFR (CKD) >90 (>60 ml/min/1.73 sqM); Albumin 4.6 g/dL (3.5-5.0); Alkaline Phosphatase 53 U/L (38-126); Anion Gap 9 mmol/L; Bilirubin, Delta 0.3 mg/dL (0.0-0.2); Bilirubin,Unconjugated 0.1 mg/dL (0.0-1.1); Blood Urea Nitrogen 12 mg/dL (9-20); Calcium 9.7 mg/dL (8.4-10.2); Carbon Dioxide 27 mmol/L (22-30); Chloride 104 mmol/L (98-107); Glucose 97 mg/dL (74-99); Non-African American GFR(CKD) >90 (>60 ml/min/1.73 sqM); Potassium 4.6 mmol/L (3.5-5.1); Sodium 140 mmol/L (137-145); Total Bilirubin 0.4 mg/dL (0.2-1.3); Total Protein 7.3 g/dL (6.3-8.2)
[2024-03-13] MEDS: LORazepam 1 MG TAB PO PRN (15:00)
[2024-03-13] MEDS: haloperidoL 5 MG TAB PO PRN (15:00)
--- NOTE | 2024-03-13 16:13 | P.HP ---
Psychiatric H&P - . H&P Date: 03/13/24 History & Physical: Allergies Allergy/AdvReac Type Severity Reaction Status Date / Time No Known Allergies Allergy Verified 03/12/24 15:49 Vital Signs Temp 97.8 F 03/13/24 01:19 Pulse 711 H 03/13/24 01:19 Resp 20 03/13/24 01:19 BP 136/7 03/13/24 01:19 Pulse Ox 98 03/13/24 01:19 FiO2 Intake & Output 03/12/24 03/13/24 03/13/24 18:59 06:59 18:59 Weight 86.636 kg 85.5 kg Laboratory Last Values WBC 7.9 k/uL (3.8-10.6) 03/13/24 12:02 RBC 4.99 m/uL (4.30-5.90) 03/13/24 12:02 Hgb 15.8 gm/dL (13.0-17.5) 03/13/24 12:02 Hct 48.2 % (39.0-53.0) 03/13/24 12:02 MCV 96.6 fL (80.0-100.0) 03/13/24 12:02 MCH 31.6 pg (25.0-35.0) 03/13/24 12:02 MCHC 32.8 g/dL (31.0-37.0) 03/13/24 12:02 RDW 12.2 % (11.5-15.5) 03/13/24 12:02 Plt Count 240 k/uL (150-450) 03/13/24 12:02 MPV 7.7 03/13/24 12:02 Neutrophils % 71 % 03/13/24 12:02 Lymphocytes % 16 % 03/13/24 12:02 Monocytes % 5 % 03/13/24 12:02 Eosinophils % 6 % 03/13/24 12:02 Basophils % 1 % 03/13/24 12:02 Neutrophils # 5.6 k/uL (1.3-7.7) 03/13/24 12:02 Lymphocytes # 1.3 k/uL (1.0-4.8) 03/13/24 12:02 Monocytes # 0.4 k/uL (0-1.0) 03/13/24 12:02 Eosinophils # 0.4 k/uL (0-0.7) 03/13/24 12:02 Basophils # 0.1 k/uL (0-0.2) 03/13/24 12:02 Sodium 140 mmol/L (137-145) 03/13/24 12:02 Potassium 4.6 mmol/L (3.5-5.1) 03/13/24 12:02 Chloride 104 mmol/L (98-107) 03/13/24 12:02 Carbon Dioxide 27 mmol/L (22-30) 03/13/24 12:02 Anion Gap 9 mmol/L 03/13/24 12:02 BUN 12 mg/dL (9-20) 03/13/24 12:02 Creatinine 1.06 mg/dL (0.66-1.25) 03/13/24 12:02 Est GFR (CKD-EPI)AfAm >90 (>60 ml/min/1.73 sqM) 03/13/24 12:02 Est GFR (CKD-EPI)NonAf >90 (>60 ml/min/1.73 sqM) 03/13/24 12:02 Glucose 97 mg/dL (74-99) 03/13/24 12:02 Calcium 9.7 mg/dL (8.4-10.2) 03/13/24 12:02 Total Bilirubin 0.4 mg/dL (0.2-1.3) 03/13/24 12:02 Conjugated Bilirubin 0.0 mg/dL (0.0-0.3) 03/13/24 12:02 Unconjugated Bilirubin 0.1 mg/dL (0.0-1.1) 03/13/24 12:02 Delta Bilirubin 0.3 mg/dL (0.0-0.2) H 03/13/24 12:02 AST 18 U/L (17-59) 03/13/24 12:02 ALT 26 U/L (4-49) 03/13/24 12:02 Alkaline Phosphatase 53 U/L (38-126) 03/13/24 12:02 Total Protein 7.3 g/dL (6.3-8.2) 03/13/24 12:02 Albumin 4.6 g/dL (3.5-5.0) 03/13/24 12:02 TSH 1.530 mIU/L (0.465-4.680) 03/13/24 12:02 Urine Opiates Screen Not Detected (NotDetected) 03/12/24 14:03 Ur Oxycodone Screen Not Detected (NotDetected) 03/12/24 14:03 Urine Methadone Screen Not Detected (NotDetected) 03/12/24 14:03 Ur Barbiturates Screen Not Detected (NotDetected) 03/12/24 14:03 U Tricyclic Antidepress Detected (NotDetected) H 03/12/24 14:03 Ur Phencyclidine Scrn Not Detected (NotDetected) 03/12/24 14:03 Ur Amphetamines Screen Not Detected (NotDetected) 03/12/24 14:03 U Methamphetamines Scrn Not Detected (NotDetected) 03/12/24 14:03 U Benzodiazepines Scrn Not Detected (NotDetected) 03/12/24 14:03 Urine Cocaine Screen Not Detected (NotDetected) 03/12/24 14:03 U Marijuana (THC) Screen Detected (NotDetected) H 03/12/24 14:03 SARS-CoV-2 (PCR) Not Detected (Not Detectd) 03/12/24 16:18 03/13/24 16:11 Psychiatric Evaluation Identifying Data: Mr. Loera is a 33 years old, single, white male, who lives in [place], [place] in a house with his family. Chief Complaint: I hear voices in my head but, I can not distinguish whos voice it History of Psychiatric Illness- The patient stated that these voices tell him that he is going get shot by somebody when leave the hospital. The patient states that he is safe in here. The patient noted that it is me but then it takes over. It is confusing. The patient does not hear several voices talking among themselves. He feels that they pressure me to do things but he makes his decisions. The patient also feels that he is being watched. He feels that these people want to harm him. The patient noted that after discharge from here in 2022, he took medications for 7 months and then stopped. He did fine till few months ago and started experiencing the symptoms again. The symptoms got worse and a week ago he went to his PCP and got Seroquel 100 mg prescribed. He feels that the Seroquel is not working well enough to control his symptoms. The patient decided to come to the hospital to seek help after his PCP recommended. The patient was discharged on Proloxin decanoate 25mg q28 days and Seroquel 100 mg po hs. Past Psychiatric History: The patient has h/o schizophrenia and has been hospitalized number of times. His last admission was in 2022 and the first admission to this hospital was in 2019. Past Medication History: Invega, Prolixin, Seroquel. Leading questions: The patient denied Depression and Anxiety he stated the voices can change his mood. Denied SI or HI. Admitted to symptoms consistent with psychosis Drugs and alcohol history: Denied any alcohol abuse. The patient noted he has not used Marijuana for 1-2 weeks because it was making him very uncomfortable. Tobacco use: Vapes 15mg of nicotine/day Past Medical history: None significant. Family History of Psychiatric Disorder: the patient denied. Social History and Family History: The patient was born and raised in [place], [place]. He grew-up with one brother to two sisters. He finished [employer]. His longest job for 2 years.at [email or web address]. Never . No children.He has no income. \ OTC: None. Allergies: None, as per patient. Objective: MSE: Alert and attentive. Orientation times three Dressed and Groomed: Appropriately. Pleasant and cooperative. Psychomotor Activity: Normal. Speech: Normal in tone, quality, and quantity. Mood; Stressed Affect: Constricted and blunted. SI or HI: None. Perceptual disturbance: The patient has auditory hallucinations. He admitted to command hallucinations. Thought Content: Paranoid delusions. No other delusional thinking noted. Thought Process: Normal. Cognition: Intact Judgment and Insight: Poor. AIMS: Normal Labs: Available labs reviewed. Diagnosis: Paranoid Schizophrenia Marijuana abuse Nicotine abuse Plan and Recommendations: Prolixin 5 mg bid. Seroquel 100 mg hs. Monitor MS and side effects of medications and adjust medications accordingly. Provide supportive psychotherapy and psychoeducation. The patient provided psychoeducation. The patient provided with substance abuse counselling and advised to attend AA/NA Smoke cessation therapy. The patient to attend [facility]. CBC with Diff, CMP, TSH, Lipid Profile, HbA1c, EKG. Ordered. Medication Consent with explanation of risk/benefits and side effects: Explained and obtained.
[2024-03-13 19:32] LABS: Chol/HDL Ratio 3.58 Ratio
[2024-03-13 19:33] LABS: LDL Cholesterol,Calculated 95.3 mg/dL (0.0-131.0)
[2024-03-13] MEDS: QUEtiapine 100 MG TAB PO SCH (20:49)
[2024-03-14] MEDS: IBUPROFEN 600 MG TAB PO PRN (10:48)
--- NOTE | 2024-03-14 14:05 | P.PN ---
Progress Note - Text Progress Note Date: 03/14/24 Follow-up Mediation Review Chief Complaint: my emotions are bad, voices are better Subjective: The patient noted that his emotions are bad but the voices have improved. The patient noted that he is not hearing voices telling him to do the things frequently. He noted that those voices are there but much less. The patient has been noted to talk to himself. He stays in his room most of the time. Complaint since yesterday: No new complaints except, the emotions a little worse. The patient associates bad emotions with being uncomfortable and scared. The patient has not been attending the groups. The interaction with staff and peers is limited. The patient is compliant with treatment recommendations. Leading questions: The patient admitted bad emotions. The patient firmly denied SI or HI. Admitted to symptoms consistent with psychosis Sleep and Appetite: Fair. Change in family/ living/job/financial/daily routine: No change. Change in medical condition: No change. Change in medications: No change. Side effects from Medications: None. Objective- MSE: Alert and attentive. Orientation times three. Dressed and Groomed: Appropriately. Pleasant and cooperative. Psychomotor Activity: Normal. Speech: Normal in tone, quality, and quantity. Mood: Emotions are bad Affect: Perplexed and flat. SI or HI: None. Perceptual disturbance: Auditory hallucinations. Thought Content: Paranoid delusions. No other delusional thinking noted. Thought Process: Normal. Cognition: Intact Judgment and Insight: Poor AIMS: Normal. Labs: No new labs. Diagnosis: Plan and Recommendations: Continue current Medications. Monitor MS and side effects of medications and a djust medications accordingly. Provide supportive psychotherapy. The patient provided psychoeducation and advised The patient provided Substance abuse counseling. Smoke cessation therapy. The patient to attend rodr[facility] activities. CBC with Diff, CMP, TSH, Lipid Profile, HbA1c, EKG, Test ordered. Medication Consent with explanation of risk/benefits and side effects: Explained and obtained.
[2024-03-14] MEDS: MAG HYDROX/AL HYDROX/SIMETH 355 ML BOTTLE PO PRN (16:09)
--- NOTE | 2024-03-15 01:58 | CONS ---
CONSULTATION CHIEF COMPLAINT: Acute psychosis. HISTORY OF PRESENT ILLNESS: This is another admission for this 33-year-old schizophrenic, who presented with an acute psychosis. REVIEW OF SYSTEMS: He denies any headaches, chest pain, abdominal pain, nausea, vomiting, fever, chills, neurologic signs or symptoms, etc. Past medical history, family history, personal and social histories can be found in his admitting summary. PHYSICAL EXAMINATION: VITAL SIGNS: Normal. HEAD, EARS, EYES, NOSE, MOUTH AND THROAT: Normal. CHEST: Clear. CARDIAC: Normal. ABDOMEN: Soft, nontender. EXTREMITIES: Normal. IMPRESSION: Acute psychosis. RECOMMENDATIONS: None. Thank you respectfully, CASEY / BETH: [id number] /
[2024-03-15] MEDS: hydrOXYzine HCL 25 MG TAB PO PRN (13:51)
--- NOTE | 2024-03-15 15:19 | P.PN ---
Progress Note - Text Progress Note Date: 03/15/24 Follow-up Mediation Review Chief Complaint: I am the same: Subjective: The patient noted that his voices are still intruding, however the intensity is diminished. The patient noted that his emotions get disturbed when he hears these voices. The patient noted that he feels uncomfortable and sacred when having paranoid thoughts. The patient seems to be talking more and responding to questions well. He gets preoccupied but to less extent than before. He has attended groups to some extent but his participation is limited. He has been compliant with medications. No side effects noted. Leading questions: The patient admitted bad emotions. The patient firmly denied SI or HI. Admitted to symptoms consistent with psychosis Sleep and Appetite: Fair. Change in family/ living/job/financial/daily routine: No change. Change in medical condition: No change. Change in medications: No change. Side effects from Medications: None. Objective- MSE: Alert and attentive. Orientation times three. Dressed and Groomed: Appropriately. Pleasant and cooperative. Psychomotor Activity: Normal. Speech: Normal in tone, quality, and quantity. Mood: Uncomfortable. Affect: Distressed and flat. SI or HI: None. Perceptual disturbance: Auditory hallucinations. Thought Content: Paranoid delusions. No other delusional thinking noted. Thought Process: Normal. Cognition: Intact Judgment and Insight: Poor AIMS: Normal. Labs: No new labs. Diagnosis: Plan and Recommendations: Continue current Medications. Prolixin increased to 10 mg po bid. Monitor MS and side effects of medications and adjust medications accordingly. Provide supportive psychotherapy. The patient provided psychoeducation and advised The patient provided Substance abuse counseling. Smoke cessation therapy. The patient to attend rodríguez activities. CBC with Diff, CMP, TSH, Lipid Profile, HbA1c, EKG, Medication Consent with explanation of risk/benefits and side effects: Explained and obtained.
--- NOTE | 2024-03-16 14:08 | P.PN ---
Subjective Progress Note Date: 03/16/24 Patient Name: Wil Loera Date of : 89 Patient Status: Inpatient Attending Provider: Riley Hopkins Date: 03/16/2024 Initialization Date: 03/15/24 15:19 Subjective data: The patient was seen and chart was reviewed and case discussed with nursing staff Patient reports that he has been here about 3 days and that he came in because of suicidal ideations He states that he was hearing voices that were threatening and that he was upset that he might act out on them He states that this is his fifth admission He states that he wants to get better he said that he does not have any plans of hurting himself at this time He has attended groups to some extent but his participation is limited. He has been compliant with medications. No side effects noted. The patient admitted bad emotion Admitted to symptoms consistent with psychosis Sleep and Appetite: Fair. Change in family/ living/job/financial/daily routine: No change. Change in medical condition: No change. Change in medications: No change. Side effects from Medications: None. MSE: Alert and attentive. Orientation times three. Dressed and Groomed: Appropriately. Pleasant and cooperative. Psychomotor Activity: Normal. Speech: Normal in tone, quality, and quantity. Mood: Uncomfortable. Affect: Distressed and flat. SI or HI: None. Perceptual disturbance: Auditory hallucinations. Thought Content: Paranoid delusions. No other delusional thinking noted. Thought Process: Normal. Cognition: Intact Judgment and Insight: Patient appears to have some insight into his problem Diagnosis: Plan and Recommendations: Continue current Medications. Prolixin increased to 10 mg po bid. Monitor MS and side effects of medications and adjust medications accordingly. Provide supportive psychotherapy. The patient provided psychoeducation and advised The patient provided Substance abuse counseling. Smoke cessation therapy. The patient to attend rodríguez activities. Medication Consent with explanation of risk/benefits and side effects: Explained and obtained. Cristiano Mcclelland MD Objective - Vital Signs Vital signs: Vital Signs Temp 97.8 F 03/16/24 06:00 Pulse 88 03/16/24 06:00 Resp 18 03/16/24 06:00 BP 129/60 03/16/24 06:00 Pulse Ox 97 03/16/24 06:00 FiO2 - Labs CBC & Chem 7: 03/13/24 12:02 03/13/24 12:02
--- NOTE | 2024-03-17 09:23 | P.PN ---
Subjective Progress Note Date: 03/17/24 Patient Name: Wil Loera Date of : 89 Patient Status: Inpatient Attending Provider: Riley Hopkins Date: 03/17/24 Subjective data: The conversation is similar to the previous day Patient reports that he is feeling somewhat better He states that the medications do seem to be working on him He states that his thoughts of wanting to hurt himself have decreased He still feels that he is uncomfortable around people The patient was seen and chart was reviewed and case discussed with nursing staff Patient reports that he has been here about 3 days and that he came in because of suicidal ideations He states that he was hearing voices that were threatening and that he was upset that he might act out on them He states that this is his fifth admission He states that he wants to get better he said that he does not have any plans of hurting himself at this time He has attended groups to some extent but his participation is limited. He has been compliant with medications. No side effects noted. The patient admitted bad emotion Admitted to symptoms consistent with psychosis Sleep and Appetite: Fair. Change in family/ living/job/financial/daily routine: No change. Change in medical condition: No change. Change in medications: No change. Side effects from Medications: None. MSE: Alert and attentive. Orientation times three. Dressed and Groomed: Appropriately. Pleasant and cooperative. Psychomotor Activity: Normal. Speech: Normal in tone, quality, and quantity. Mood: Uncomfortable. Affect: Distressed and flat. SI or HI: None. Perceptual disturbance: Auditory hallucinations. Thought Content: Paranoid delusions. No other delusional thinking noted. Thought Process: Normal. Cognition: Intact Judgment and Insight: Patient appears to have some insight into his problem Diagnosis: Plan and Recommendations: Continue current Medications. Prolixin increased to 10 mg po bid. Monitor MS and side effects of medications and adjust medications accordingly. Provide supportive psychotherapy. The patient provided psychoeducation and advised The patient provided Substance abuse counseling. Smoke cessation therapy. The patient to attend rodríguez activities. Medication Consent with explanation of risk/benefits and side effects: Explained and obtained. Cristiano Mcclelland MD Objective - Vital Signs Vital signs: Vital Signs Temp 97.6 F 03/17/24 08:41 Pulse 104 H 03/17/24 08:41 Resp 20 03/17/24 08:41 BP 135/83 03/17/24 08:41 Pulse Ox 97 03/16/24 06:00 FiO2 - Labs CBC & Chem 7: 03/13/24 12:02 03/13/24 12:02
[2024-03-17] MEDS: traZODone HCL 100 MG TAB PO SCH (20:37)
--- NOTE | 2024-03-18 21:55 | P.PN ---
Progress Note - Text Progress Note Date: 03/18/24 Follow-up Mediation Review Chief Complaint: I am feeling better Subjective: The patient noted that he is feeling better. The thoughts of hurting himself and other have less frequent and less intense. The patient that he can relax a little bit. The patient has started to attend the groups. The participation is limited. The interaction with staff and peers is limited. The patient is compliant with treatment recommendations. Leading questions: The patient admitted to mild Depression and Anxiety. Denied SI or HI. Admits to symptoms consistent with psychosis Sleep and Appetite: Improving. Change in family/ living/job/financial/daily routine: No change. Change in medical condition: No change. Change in medications: No change. Side effects from Medications: None. Objective- MSE: Alert and attentive. Orientation times three. Dressed and Groomed: Appropriately. Pleasant and cooperative. Psychomotor Activity: Normal. Speech: Normal in tone, quality and quantity. Mood: Mildly anxious and depressed. Affect: Consistent with mood. SI or HI: None. Perceptual disturbance: Positive for hallucinations. Thought Content: Positive for paranoia or other delusional thinking noted. Thought Process: Normal. Cognition: Intact Judgment and Insight: Poor. AIMS: Normal. Labs: No new labs. Diagnosis: No change. Plan and Recommendations: Continue current Medications. Monitor MS and side effects of medications and adjust medications accordingly. Provide supportive psychotherapy. The patient provided psychoeducation and advised The patient to attend rodríguez activities. Medication Consent with explanation of risk/benefits and side effects: Explained and obtained.
--- NOTE | 2024-03-19 15:41 | P.PN ---
Progress Note - Text Progress Note Date: 03/19/24 Follow-up Mediation Review Chief Complaint: I am feeling good Subjective: The patient noted that continues to feel better. He reported no hallucinations or delusions. His anxiety has subsided. He still not attending groups. He tends to by himself. The patient noted that it his personality. Complaint since yesterday: No new complaints. The patient has been attending the groups. The participation is limited. The interaction with staff and peers is limited. The patient is compliant with treatment recommendations. Leading questions: The patient admitted to Depression and Anxiety. Denied SI or HI. Denied symptoms consistent with psychosis Sleep and Appetite:Fine. Change in family/ living/job/financial/daily routine: No change. Change in medical condition: No change. Change in medications: No change. Side effects from Medications: None. Allergies: No change. Objective- MSE: Alert and attentive. Orientation times three. Dressed and Groomed: Appropriately. Pleasant and cooperative. Psychomotor Activity: Normal. Speech: Normal in tone, quality and quantity. Mood: Fine. Affect: Consistent with mood. SI or HI: None. Perceptual disturbance: None. Thought Content: No paranoia or other delusional thinking noted. Thought Process: Normal. Cognition: Intact Judgment and Insight: Fair. AIMS: Normal. Labs: No new labs. Diagnosis: No change. Plan and Recommendations: Continue current Medications. Monitor MS and side effects of medications and adjust medications accordingly. Provide supportive psychotherapy. The patient provided psychoeducation and advised The patient to attend rodríguez activities. Medication Consent with explanation of risk/benefits and side effects: Explained and obtained.
[2024-03-20 06:57] VITALS: BP 132/84; PULSE 69; RESP 16; TEMP 97.7
--- NOTE | 2024-03-20 13:04 | P.DS ---
Providers Date of admission: 03/13/24 00:32 Expected date of discharge: 03/20/24 Attending physician: Riley Hopkins MD Consults: 03/13/24 00:43 Consult Physician Routine Consulting Provider: Moris Schumacher Consult Reason/Comments: For H & P for Medical Follow Up Do you want consulting provider notified?: Yes, Notify in am Primary care physician: Moris Schumacher - Discharge Diagnosis(es) (1) Paranoid schizophrenia Current Visit: Yes Status: Acute Priority: High (2) Marijuana abuse Current Visit: Yes Status: Acute Priority: Medium Hospital Course: Discharge Summary HPI: Identifying Data: Mr. Loera is a 33 years old, single, white male, who lives in [place], [place] in a house with his family. Chief Complaint: I hear voices in my head but, I can not distinguish whos voice it History of Psychiatric Illness- The patient stated that these voices tell him that he is going get shot by somebody when leave the hospital. The patient states that he is safe in here. The patient noted that it is me but then it takes over. It is confusing. The patient does not hear several voices talking among themselves. He feels that they pressure me to do things but he makes his decisions. The patient also feels that he is being watched. He feels that these people want to harm him. The patient noted that after discharge from here in 2022, he took medications for 7 months and then stopped. He did fine till few months ago and started experiencing the symptoms again. The symptoms got worse and a week ago he went to his PCP and got Seroquel 100 mg prescribed. He feels that the Seroquel is not working well enough to control his symptoms. The patient decided to come to the hospital to seek help after his PCP recommended. The patient was discharged on Proloxin decanoate 25mg q28 days and Seroquel 100 mg po hs. Past Psychiatric History: The patient has h/o schizophrenia and has been hospitalized number of times. His last admission was in 2022 and the first admission to this hospital was in 2019. Past Medication History: Invega, Prolixin, Seroquel. Leading questions: The patient denied Depression and Anxiety he stated the voices can change his mood. Denied SI or HI. Admitted to symptoms consistent with psychosis Drugs and alcohol history: Denied any alcohol abuse. The patient noted he has not used Marijuana for 1-2 weeks because it was making him very uncomfortable. Hospital Course: After admission, the patient was involved in pharmacotherapy, rodríguez milieu, and individual psychodynamic psychotherapy. The patient was started the patient was reinstated on Prolixin and Seroquel. The dose was titrated to obtain the desire effects. The patient tolerated medications well without any side effects. The patient was also involved in rodríguez activities. The patient attended the groups and participated well. The patient interacted with peers and staff well. The patient slowly started showing improvement. The hospital course was uneventful. The patient symptoms of depression, suicidal and homicidal ideations abated. The psychosis improved. The patient was stable to be discharged to out-patient care. The patient did not have any guns or weapons in possession at home. MSE: Alert and attentive. Orientation times three Dressed and Groomed: Appropriately. Pleasant and cooperative. Psychomotor Activity: Normal. Speech: Normal in tone, quality, and quantity. Mood; Stressed Affect: Constricted and blunted. SI or HI: None. Perceptual disturbance: The patient has auditory hallucinations. He admitted to command hallucinations. Thought Content: Paranoid delusions. No other delusional thinking noted. Thought Process: Normal. Cognition: Intact Judgment and Insight: Poor. Diagnosis: Paranoid Schizophrenia Marijuana abuse Nicotine abuse Plan: The patient to be discharged today. The patient has attained good improvement since admission. He is stable to be followed as an outpatient. The patient is not suicidal or Homicidal. He does not pose any harm to self or others. The patient remains at a greater risk of self-harm or harm to others than general population on a chronic basis due to psychiatric illness and substance abuse. The patient will continue taking following medication post discharge. The importance of medication compliance and maintaining regular appointments at psychiatric out-pt and PCP clinic was explained and encouraged. The patient attend substance abuse counseling and N/A meetings. demurrage worker to arrange for and conduct family meeting to ensure safety upon discharge and answer any questions. The social services assistant to arrange for patients follow-up appointments at [facility] for psychiatric care along with follow-up with PCP. The patient provided psychoeducation. Advised to call 911 or go to nearest ED or call this hospital in case of acute worsening of symptomatology, severe side effects or having suicidal, homicidal thoughts and feeling unsafe at home. Patient Condition at Discharge: Stable Plan - Discharge Summary Discharge Rx Participant: Yes New Discharge Prescriptions: New fluPHENAZine [Prolixin] 10 mg PO BID 15 Days #60 tab QUEtiapine [SEROquel] 100 mg PO HS 15 Days #15 tab Discontinued QUEtiapine [SEROquel] 100 mg PO HS hydrOXYzine HCL [Atarax] 25 mg PO TID Docusate [Colace] 100 mg PO BID PRN PRN Reason: Constipation Discharge Medication List QUEtiapine [SEROquel] 100 mg PO HS 15 Days #15 tab 03/20/24 [Rx] fluPHENAZine [Prolixin] 10 mg PO BID 15 Days #60 tab 03/20/24 [Rx] Follow up Appointment(s)/Referral(s): [facility] [Outside] - 04/17/24 11:00 am (intake apt is on 03-18-24 at 11:00 with [facility] ) Moris Schumacher MD [Primary Care Provider] - 1-2 days Patient Instructions/Handouts: How to Stop Smoking (ED), Schizophrenia (DC), Cannabis Abuse (DC) Activity/Diet/Wound Care/Special Instructions: Avoid the use of street drugs and alcohol. Take all medications as prescribed. When you are in need of refills on your medications, please contact your medical provider and/or outpatient psychiatrist/provider to have this done. Please go to your scheduled outpatient appointment for aftercare treatment. If symptoms return or become worse, call the crisis line at and/or go to the nearest emergency room for evaluation. National Suicide Hotline 988 Discharge Disposition: HOME SELF-CARE
== END 2024-03-20 13:05 | disposition home or self-care (01) | DRG 750 ==
LOC: EC 13:31 → 3MHU 03-13 00:32
PROVIDERS: ADMIT Psychiatry & Neurology Psychiatry; ATTEND Psychiatry & Neurology Psychiatry
DX: F20.0 Paranoid schizophrenia (principal); R45.851 Suicidal ideations; F12.10 Cannabis abuse, uncomplicated; F90.9 Attention-deficit hyperactivity disorder, unspecified type; Z11.52 Encounter for screening for COVID-19; F17.290 Nicotine dependence, other tobacco product, uncomplicated; Z71.6 Tobacco abuse counseling; Z79.899 Other long term (current) drug therapy; Z56.0 Unemployment, unspecified; Z71.51 Drug abuse counseling and surveillance of drug abuser
CPT/HCPCS: 80053; 80061; 80306; 82075; 82248; 83036; 84443; 85025; 87635; 99285